=== PATIENT | female | born 1960 | race Caucasian/White ===

== ENCOUNTER 2025-04-08 13:11 | Outpatient (CLI) | payer MEDICARE, BC, SELFPAY ==
--- OUTSIDE RECORDS SUMMARY | 2025-02-22 08:00 | XMS_ITS | Encounter Summary ---
Author Organization [facility] Address [address] [place] [address] Care Team Providers Care Sodium Chlorite Operator Name Role Phone Alda Sandra MD Primary Care Provider [phone] Reason for Visit * Reason Comments Labs Hair loss - check th yroid and lipid Encounter Details Date Type Department Care Team (Latest Contact Info) Description 02/22/2025 8:00 AM EDT Office Visit [facility] Medicine [address] [place] [address] Alda Sandra MD [address] [place] [address] Acquired hypothyroidism (Primary Dx); Encounter for osteoporosis screening in asymptomatic postmenopausal patient; Primary hypertension; Gastro-esophageal reflux disease without esophagitis Social History Tobacco Use Types Packs/Day Years Used Date Smoking Tobacco: Former Cigarettes 1 25 0 10/31/1976 - 1999 Passive Smoke Exposure: Never Smokeless Tobacco: Never Tobacco Cessation:Counseling Given: No Alcohol Use Standard Drinks/Week Comments Yes 0 (1 standard drink = 0.6 oz pure alcohol) Alcoholic Drinks/day: Minimum alcohol consumption Humiliation, Afraid, Rape, and Kick questionnair e Answer Date Recorded Within the last year, have y ou been afraid of your partner or ex-partner? No 02/22/2025 Within the last year, have y ou been humiliated or emotionally abused in other ways by your partner or ex-partner? No Within the last year, have y ou been kicked, hit, slapped, or otherwise physically hurt by your partner or ex-partner? No 02/22/2025 Within the last year, have y ou been raped or forced to have any kind of sexual activity by your partner or ex-partner? No 02/22/2025 Social Connection and Isolation Panel Answer Date Recorded In a typical week, how many times do you talk on the phone with family, friends, or neighbors? More than three times a week 08/01/2024 How often do you get togethe r with friends or relatives? More than three times a week 08/01/2024 How often do you attend chur or latter day services? More than 4 times per year 08/01/2024 Do you belong to any clubs o r organizations such as zoroastrianism groups, unions, fraternal or athletic groups, or school groups? Yes 08/01/2024 How often do you attend meet ings of the clubs or organizations you belong to? More than 4 times per year 08/01/2024 Are you , , di vorced, , never , or living with a partner? 08/01/2024 AUDIT-C Answer Date Recorded Q1: How often do you have a drink containing alcohol? Never 08/01/2024 Q2: How many drinks containi ng alcohol do you have on a typical day when you are drinking? Patient does not drink Q3: How often do you have si x or more drinks on one occasion? Never 08/01/2024 PHQ-2 Answer Date Recorded Patient Health Questionnaire-2 Score 0 02/22/2025 [facility] - Occupational Stress Questionnaire Answer Date Recorded Do you feel stress - tense, restless, nervous, or anxious, or unable to sleep at night because your mind is troubled all the time - these days? To some extent 08/01/2024 Exercise Vital Sign Answer Date Recorde d Days of Exercise per Week Not on file 2023 On average, how many minutes do you engage in exercise at this level? 0 min 08/01/2024 Hunger Vital Sign Answer Date Recorded Within the past 12 months, y ou worried that your food would run out before you got the money to buy more. Never true 02/23/20 Within the past 12 months, t he food you bought just didn't last and you didn't have money to get more. Never true 02/22/2025 PRAPARE - Transportation Answer Date Re corded In the past 12 months, has l ack of transportation kept you from medical appointments or from getting medications? No 01/30 In the past 12 months, has l ack of transportation kept you from meetings, work, or from getting things needed for daily living? No 02/22/2025 Housing Stability Vital Sign Answer Angel e Recorded In the last 12 months, was t here a time when you were not able to pay the mortgage or rent on time? No 08/01/2024 In the last 12 months, how many places have you lived? 1 08/01/2024 In the last 12 months, was t here a time when you did not have a steady place to sleep or slept in a long-term (including now)? No 08/01/2024 PHQ-9 Answer Date Recorded Patient Health Questionnaire-9 Score 0 02/22/2025 Housing Stability Vital Sign Answer Angel e Recorded In the last 12 months, was t here a time when you were not able to pay the mortgage or rent on time? No 02/22/2025 In the past 12 months, how m any times have you moved where you were living? 0 02/22/2025 At any time in the past 12 m [facility], were you homeless or living in a long-term (including now)? No 02/22/2025 CAGE ASSESSMENT Answer Date Recorded Due to the following: Medical status 10/21/2024 Maximum number of drinks you had on a given occasion in the last month? 0 drinks 10/21/2024 How many alcoholic Beverages do you typically drink in a week? 0 - 7 per week 10/21/2024 Have you ever felt you should CUT down on your d rinking? 0 10/21/2024 Have you been ANNOYED by peo ple criticizing your drinking? 0 10/21/2024 Have you felt GUILTY about your drinking? 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 0 10/21/2024 CAGE Questionnaire Score 0 024 Utilities Answer Date Recorded In the past 12 months has th e electric, gas, oil, or water company threatened to shut off services in your home? No 02/22/2025 PHQ-2A Answer Date Recorded Patient Health Questionnaire-2 Score 0 07/08/2023 Comments No Sex and Gender Information Value Date Recorded Sex Assigned at Female 12/18/2021 7:05 PM EST Legal Sex Female 7:53 PM EDT Gender Identity Female 12/18/2021 7:05 PM EST Sexual Orientation Straight 12/18/2021 7: 05 PM EST Occupation Industry Job Start Date Job End Date disabled - [employer] Not on file Not on file Not on sonido e documented as of this encounter Last Filed Vital Signs Vital Sign Reading Time Taken Comments Blood Pressure 126/84 02/22/2025 7:59 AM EDT Pulse 79 02/22/2025 7:59 AM EDT Temperature 37 C (98.6 F) 02/22/2025 7:59 AM EDT Respiratory Rate 14 02/22/2025 7:59 AM EDT Oxygen Saturation 97% 02/22/2025 7:59 AM EDT Inhaled Oxygen Concentration - - Weight 100 kg (220 lb 14.4 oz) 02/22/2025 7:59 A M EDT Height 165.1 cm (5' 5 ) 02/22/2025 7:59 AM EDT Body Mass Index 36.76 02/22/2025 7:59 AM EDT documented in this encounter Functional Status * Over the past 2 weeks, how often have you been bothered by any of the following problems? Question Answer Date of Assessment Author Little interest or pleasure in doing things Not at all 02/22/2025 8:00 AM EDT Jennifer Floyd Feeling down, depressed, or hopeless Not at all 01/30 8:00 AM EDT Jennifer Floyd Patient Health Questionnaire-2 Score 0 01/30 8:00 AM EDT Jennifer Floyd * Question Answer Date of Assessment Author Trouble falling or staying a sleep, or sleeping too much Not at all 02/22/2025 8:00 AM EDJennifer Chatterjee Feeling tired or having little energy Not at all 8:00 AM EDJennifer Chatterjee Poor appetite or overeating Not at all 02/22/2025 8: 00 AM EDJennifer Chatterjee Feeling bad about yourself - or that you are a failure or have let yourself or your family down Not at all 02/22/2025 8:00 AM EDArin Chatterjee Trouble concentrating on thi ngs, such as reading the newspaper or watching television Not at all 02/22/2025 8:00 AM Jennifer Burton Moving or speaking so slowly that other people could have noticed? Or the opposite - being so fidgety or restless that you have been moving around a lot more than usual. Not at all 02/22/2025 8:00 AM EDDane Chatterjee Thoughts that you would be b poly off or hurting yourself in some way Not at all 02/22/2025 8:00 AM EDJennifer Chatterjee Patient Health Questionnaire-9 Score 0 01/30 8:00 AM EDJennifer Chatterjee * Calculated C-SSRS Risk Score (Lifetime/Recent) Answer Date of Assessment Author No Risk Indicated 02/22/2025 8:00 AM EDDane Chatterjee * If you checked off any problems on this questionnaire so far, Question Answer Date of Assessment Author How difficult have these problems made it for you to do your work, take care of things at home, or get along with other people? Not difficult at all 02/22/2025 8:00 AM EDJennifer Chatterjee * Question Answer Date of Assessment Author 1. Wish to be (Past 1 Month) No 025 8:00 AM Jennifer Burton 2. Non-Specific Active Suici jesus Thoughts (Past 1 Month) No 02/22/2025 8:00 AM Jennifer Burton 6. Suicidal Behavior (Lifetime) No 8:00 AM EDJennifer Chatterjee documented as of this encounter Miscellaneous Notes * Progress Notes - Alda Sandra MD - 02/22/2025 8:00 AM EDT Office Progress Note Subjective Gem Montgomery is a 64 y.o. female who presents for Labs (Hair loss - check thyroid and lipid ). History of Present Illness The patient presents for a pre-travel checkup, hair loss, hyperlipidemia, hypertension, osteoporosis She is planning a trip to [place] on 03/02/2025 and has been informed by her pharmacy that she requires a hepatitis booster. Hepatitis vaccines were received in 2014 due to a previous trip to [facility]. Hair loss is reported, which she attributes to her thyroid condition, and she requests a thyroid test. The last thyroid test was conducted in 07/2024 and was normal. She has been taking red yeast rice for high cholesterol d/t muscle-related issues associated with her prescription statin medications and is interested in assessing its effectiveness. Daily intake of vitamin D3 at a dose of 5000 IU is reported, as recommended by her airplane and engine inspector or neurologist. A bone density test was conducted 3 to 4 years ago, but the results are not recalled. Calcium supplements are also taken. She was previously diagnosed with mild osteoporosis. A known hemangioma on her liver is reported. There is a family history of nonalcoholic cirrhosis ofthe liver. Antihypertensive medication is taken in the morning, and dizziness or lightheadedness is experienced if a dose is missed. The medication was not taken today to assess blood pressure without it. She has received 16 injections in her back for nerve blockage but did not find them beneficial. FAMILY HISTORY She has a family history of nonalcoholic cirrhosis of the liver. The following sections have been reviewed and updated during this encounter: Tobacco Allergies Meds Problems Med Hx Surg Hx Fam Hx Objective Blood pressure 126/84, pulse 79, temperature 37 ??C (98.6 ??F), resp. rate 14, height 1.651 m (5' 5 ), weight 100 kg (220 lb 14.4 oz), SpO2 97%. Body mass index is 36.76 kg/m??. Physical Exam Vitals reviewed. Constitutional: Appearance: Normal appearance. Neurological: Mental Status: She is alert. Assessment/Plan Diagnoses and all orders for this visit: Acquired hypothyroidism - Thyroid Stimulating Hormone, Plasma Encounter for osteoporosis screening in asymptomatic postmenopausal patient - Dexa Bone Density; Future Primary hypertension - Comprehensive Metabolic Panel, Plasma - Lipid Profile, Plasma - Thyroid Stimulating Hormone, Plasma Gastro-esophageal reflux disease without esophagitis Peripheral polyneuropathy Assessment & Plan 1. Pre-travel checkup: - Received all three doses of the hepatitis B vaccine, providing lifelong immunity. - Only received one dose of the hepatitis A vaccine, which is typically administered in a series oftwo doses. - A1c levels were within the normal range during the last assessment in 07/2024. - Blood counts were good in 09/2024. - Advised to receive the hepatitis A vaccine at the pharmacy prior to travel. - A complete metabolic panel (CMP) will be ordered to monitor glucose levels and overall health status. - Results will be communicated via [employer]. 2. Hair loss: - Thyroid function was last assessed in 07/2024 and was within normal limits. - An abnormality was noted in 07/2023. - A thyroid function test will be ordered to monitor the current status. -adjust medication as needed pending TSH results 3. Hyperlipidemia: - Cholesterol levels were elevated during the last assessment in 09/2024. - Currently taking red yeast rice for about a month and a half. - A lipid panel will be ordered to monitor cholesterol levels. 4. Osteoporosis: - Currently on a regimen of vitamin D3 at a dosage of 5000 IU daily. - Vitamin D levels were last assessed in 10/2022 and were within the normal range. - A bone density test will be scheduled for comparison with previous results. - A vitamin D level test will be ordered to ensure the dosage is appropriate. - If bone density is low, continue with 5000 IU daily. - If bone density is normal, reduce dosage to 2000 IU daily. 5. Liver hemangioma: - Known hemangioma on the liver, considered benign and does not require treatment at this time. 6. Hypertension: - Currently on losartan and a diuretic. - Reported feeling dizzy and lightheaded when not taking blood pressure medication. - Kidney function will be monitored as losartan can affect the kidneys. Verbal consent was obtained to use ambient listening technology to assist in the documentation of the encounter: yes documented in this encounter Plan of Treatment Upcoming Encounters Date Type Department Care Team (Late st Contact Info) Description 04/15/2025 2:15 PM EDT Office Visit [facility] Medicine Specialties [address] [place] [address] Shanice Freedman, SOLUTIONS ENGINEER [address] [place] [address] 05/29/2025 9:30 AM EDT Procedure Visit [facility] Interventional Pain Medicine [address] [place] [address] German Espinosa MD [address] [place] [address] 07/18/2025 1:20 PM EDT Office Visit [facility] [place] [address] [place] [address] Brandi Bermeo MD [address] [place] [address] Scheduled Orders Name Type Priority Associated Diagnoses Orde r Schedule Dexa Bone Density Imaging Routine Encounter for osteoporosis screening in asymptomatic postmenopausal patient Expected: 02/22/2025, Expires: 08/24/2026 documented as of this encounter Procedures Procedure Name Priority Date/Time Associated Diagnosis Comments TSH Routine 02/22/2025 8:42 AM EDT Primary hypertension Acquired hypothyroidism LIPID PROFILE, PLASMA Routine 02/22/2025 8:42 AM EDT Primary hypertension COMPREHENSIVE METABOLIC PANEL, PLASMA Routine 02/22/2025 8:42 AM EDT Primary hypertension documented in this encounter Results * Thyroid Stimulating Hormone, Plasma (02/22/2025 8:42 AM EDT) Thyroid Stimulating Hormone, Plasma 2.55 0.40 - 4.20 uIU/mL 02/22/2025 1:19 PM EDT [facility] Blood Venous blood specimen / Unknown Venipuncture / Unknown 02/22/2025 8:42 AM EDT 02/22/2025 8:42 AM EDT us Alda Sandra MD LAB BLOOD ORDERABLES Final Re sult [facility] [address] [place] [address] * (ABNORMAL) Lipid Profile, Plasma (02/22/2025 8:42 AM EDT) Cholesterol, Plasma 246(H) <200 mg/dL 02/22/2025 1:19 PM EDT [facility] Comment: Cholesterol Reference Range (age >17 years): Desirable <200 mg/dL Borderline 200 to 239 mg/dL Undesirable >239 mg/dL HDL 44(L) >=50 mg/dL 02/22/2025 1:19 PM EDT [facility] Comment: HDL Cholesterol Reference Ranges (age >17 years): Female, acceptable > or = 50 mg/dL Male, acceptable > or = 40 mg/dL Triglycerides, Plasma 173(H) <150 mg/dL 02/22/2025 1:19 PM EDT [facility] Comment: Triglyceride Reference Range (age >17 years): Desirable: <150 mg/dL Borderline high: 150 to 199 mg/dL High: 200 to 499 mg/dL Very high: >499 mg/dL Increased risk of pancreatitis: >1000 mg/dL Cholesterol/HDL Ratio 6 02/22/2025 1:19 PM EDT [facility] LDL, Calculated 170(H) <100 mg/dL 1:19 PM EDT [facility] Comment: LDL Cholesterol Reference Range (age >17 years): Optimal: <100 mg/dL Near or above optimal: 100 - 129 mg/dL Borderline high: 130 - 159 mg/dL High: 160 - 189 mg/dL Very high: >189 mg/dL LDL Cholesterol Reference Range (age <18 years): Desirable: <110 mg/dL Borderline: 110 - 129 mg/dL Undesirable: >130 mg/dL LDL Cholesterol is calculated using the Hubbard/NIH equation. Fasting greater than or equal to 12 hours? Yes 02/22/2025 1:19 PM EDT [facility] Blood Venous blood specimen / Unknown Venipuncture / Unknown 02/22/2025 8:42 AM EDT 02/22/2025 8:42 AM EDT us Alda Sandra MD LAB BLOOD ORDERABLES Final Re sult [facility] [address] [place] [address] * (ABNORMAL) Comprehensive Metabolic Panel, Plasma (02/22/2025 8:42 AM EDT) Glucose, Plasma 89 74 - 99 mg/dL 02/22/2025 1:19 PM EDT [facility] BUN, Plasma 26(H) 8 - 23 mg/dL 02/22/2025 1:19 PM EDT [facility] Creatinine, Plasma 0.84 0.60 - 1.10 mg/dL 02/22/2025 1:19 PM EDT [facility] BUN/Creatinine Ratio 31 02/22/2025 1:19 PM EDT [facility] Sodium, Plasma 141 136 - 145 mmol/L 02/22/2025 1:19 PM EDT [facility] Potassium, Plasma 4.3 3.6 - 4.9 mmol/L 02/22/2025 1:19 PM EDT [facility] Chloride, Plasma 103 97 - 107 mmol/L 02/22/2025 1:19 PM EDT [facility] CO2, Plasma 28 22 - 29 mmol/L 02/22/2025 1:19 PM EDT [facility] Anion Gap 10 6 - 16 mmol/L 02/22/2025 1:19 PM EDT [facility] Total Calcium, Plasma 9.7 8.9 - 10.2 mg/dL 02/22/2025 1:19 PM EDT [facility] Total Protein 6.7 6.3 - 7.9 g/dL 02/22/2025 1:19 PM EDT [facility] Albumin, Plasma 4.3 3.5 - 5.2 g/dL 02/22/2025 1:19 PM EDT [facility] AST, Plasma 19 10 - 35 U/L 02/22/2025 1:19 PM EDT [facility] ALT, Plasma 20 10 - 35 U/L 02/22/2025 1:19 PM EDT [facility] Alkaline Phosphatase, Plasma 86 46 - 142 U/L 02/22/2025 1:19 PM EDT [facility] Total Bilirubin, Plasma 0.5 0.2 - 1.1 mg/dL 02/22/2025 1:19 PM EDT [facility] eGFRcr 78.2 mL/min/1.7 3m*2 02/22/2025 1:19 PM EDT [facility] Comment:Reported eGFRcr in m L/min/1.73m2 is based the CKD-EPI 2020 equation that does not use a race coefficient. Blood Venous blood specimen / Unknown Venipuncture / Unknown 02/22/2025 8:42 AM EDT 02/22/2025 8:42 AM EDT us Alda Sandra MD LAB BLOOD ORDERABLES Final Re sult [facility] [address] [place] [address] documented in this encounter Visit Diagnoses Diagnosis Acquired hypothyroidism- Primary Unspecified hypothyroidism Encounter for osteoporosis screening in asymptomatic postmenopausal patient Primary hypertension Unspecified essential hypertension Gastro-esophageal reflux disease without esophagitis documented in this encounter Additional Health Concerns Infection Onset Date Last Indicated Resolved Time COVID-19 Rule-Out 11/01/2023 11/01/2023 Assessment Noted Time PHQ-9 Depression Total Score: 0 02/23/20 8:00 AM EDT A fall risk assessment has been complete d for the patient 02/06/2025 1:18 PM EDT A Body Mass Index follow-up plan has been documented for the patient 02/22/2025 9:05 AM EDT documented as of this encounter Care Teams Sodium Chlorite Operator Relationship Specialty Start Date End Date Alda Sandra MD [address] [place] [id number] PCP - General 03/13/21 documented as of this encounter
--- OUTSIDE RECORDS SUMMARY | 2025-03-18 08:30 | XMS_ITS | Encounter Summary ---
Author Organization [facility] Address [address] [place] [address] Care Team Providers Care Building Rigger Name Role Phone Alda Sandra MD Primary Care Provider [phone] Reason for Referral * Other Medical (Urgent) - Authorized Specialty Diagnoses / Procedures Referred By Contac t Referred To Contact Pain Medicine Diagnoses Spondylosis of lumbar region without myelopathy or radiculopathy Procedures Facet MBB - Lumbar German Espinosa MD [address] [address] Phone: tel: fax: Referral ID Status Reason Start Date Expiration Date V isits Requested Visits Authorized [id number] Authorized 03/18/2025 09/17/2026 1 1 Reason for Visit * Reason Comments Follow-up Encounter Details Date Type Department Care Team (Late st Contact Info) Description 03/18/2025 8:30 AM EDT Office Visit [facility] Interventional Pain Medicine [address] [place] [address] German Espinosa MD [address] [facility] [address] [place] [phone] Spondylosis of lumbar region without myelopathy or radiculopathy (Primary Dx) Social History Tobacco Use Types Packs/Day Years Used Date Smoking Tobacco: Former Cigarettes 1 25 0 10/31/1976 - 1999 Passive Smoke Exposure: Never Smokeless Tobacco: Never Alcohol Use Standard Drinks/Week Comments Yes 0 [...] week 08/01/2024 How often do you attend [facility] or orthodox services? More than 4 times per year 08/01/2024 Do you belong to any clubs o r organizations such as congregational groups, unions, fraternal or athletic groups, or [...] Date Recorded Patient Health Questionnaire-2 Score 0 03/18/2025 [facility] - Occupational Stress Questionnaire Answer Date Recorded [...] money to buy more. Never true 02/23/20 25 Within the past 12 months, t he [...] place to sleep or slept in a jail (including now)? No 08/01/2024 PHQ-9 Answer Date [...] any time in the past 12 m [facility], were you homeless or living in a jail (including now)? 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 0 10/21/2024 CAGE Questionnaire Score 0 024 Utilities Answer Date Recorded In the past 12 months has e electric, gas, oil, or water company [...] Start Date Job End Date disabled - [employer] Not on file Not on file Not on sonido e documented as of this encounter Last Filed Vital Signs Vital Sign Reading Time Taken Comments Blood Pressure 128/84 03/18/2025 8:42 AM EDT Pulse 77 03/18/2025 8:42 AM EDT Temperature 36.7 C (98 F) 03/18/2025 8:42 AM EDT Respiratory Rate 18 03/18/2025 8:42 AM EDT Oxygen Saturation - - Inhaled Oxygen Concentration - - Weight 99.8 kg (220 lb) 03/18/2025 8:42 AM EDT Height 165.1 cm (5' 5 ) 03/18/2025 8:42 AM EDT Body Mass Index 36.61 03/18/2025 8:42 AM EDT documented in this encounter Functional Status * Over the past 2 weeks, how often have you been bothered by any of the following problems? Question Answer Date of Assessment Author Little interest or pleasure in doing things Not at all 03/18/2025 8:42 AM Med [place] Feeling down, depressed, or hopeless Not at all 03/18/2025 8:42 AM Med [place] Patient Health Questionnaire -2 Score 0 03/18/2025 8:42 AM Med [place] * Question Answer Date of Assessment Author Thoughts that you would be b poly off or hurting yourself in some way Not at all 03/18/2025 8:42 AM Med [place] * If you checked off any problems on this questionnaire so far, Question Answer Date of Assessment Author How difficult have these problems made it for you to do your work, take care of things at home, or get along with other people? Not difficult at all 03/18/2025 8:42 AM Med [place] documented as of this encounter Miscellaneous Notes * Progress Notes - Jame Jones MD - 03/18/2025 8:30 AM EDT Images from the original note were not included. Interventional Pain Medicine Follow Up Note Subjective: Interval History: 03/18/2025 Gem presents today for follow up and re-evaluation of chronic mid low back pain status post 02/06/25 bilateral levator scapulae, upper trapezius, middle trapezius, lower trapezius, rhomboid complex, thoracic paraspinal, and lumbar paraspinal Trigger Point Injections on 02/06/2025. She endorses ongoing 50% relief of her back pain. Today she reports 4/10 mid and lower back pain, deep/burning in character, exacerbated by physical activity/standing/ambulating and lifting, and extension of the lumbar spine, partially alleviated by sitting down to rest. She notes that she feels as if her back is numb(describes as occurring over the bilateral paraspinal region from the bra-line to the bilateral iliac crests). She notes that this has been a months long issue (denies inciting event, however notes that she fell against a metal hand cart in 2023 while unloading boxes from her attic and hitthe middle of her back against it, although she may have been numb before that time). She denies LEweakness/paresthesias, bowel/bladder incontinence, saddle paresthesias, gait instability. She notesthat she fell recently while on a trip to [place] while carrying her suitcase down a marble staircase in the dark. MIMA: 2250 History of Present Illness: Gem Montgomery is a 64 y.o. female with PMHx of L4/5 and L5/S1 fusion who presents due to worsening mid and low back pain following a fall in September 2024. She notes numbness in her right and left lateral thigh numbness. She notes falls as recent as a week ago. Patient referred by No ref. provider found for evaluation of injections for low back pain Presents with: Site: low back and thoracic back pain Onset: September 2024 Severity: 05/09 Descriptors: burning, hot poker Aggravating Factors: walking, standing, lifting, back extension Relieving Factors: laying flat Associated Symptoms: notes pain and numbness in bilateral lateral thighs; no radiation past the knees Global Pain Score: 68/100 PHQ-9: 13; all pain related; no active or passive SI Current Disabilities: limitations in ADLs/IADLs Functional Goals of Treatment: improvement in function Current Medication: Current Pain Medications diclofenac (Voltaren) 75 MG EC tablet TAKE 1 TABLET BY MOUTH TWICE DAILY DO NOT CRUSH ,CHEW OR SPLIT Previous Medication: Tylenol Ibuprofen Cyclobenzaprine Tizanidine CBD gummies Previous Conservative Treatment: conservative care > 6 weeks within the last 6 months heat ice rest physical therapy completed > 6 weeks in the last 6 months at [facility] in [place], [place] August 2024 to September 2024 Previous Interventions/Consults: 02/06/2025: bilateral levator scapulae, upper trapezius, middle trapezius, lower trapezius, rhomboid complex, thoracic paraspinal, and lumbar paraspinal Trigger Point Injections Other Medical History Work Status/Pain related to work injury: Yes; work place injury in 2000 reports that she quit smoking about 25 years ago. Her smoking use included cigarettes. She started smoking about 48 years ago. She has a 25 pack-year smoking history. She has never been exposed to tobacco smoke. She has never used smokeless tobacco. Anticoagulation: No Review of Systems: CONSTITUTIONAL: denies fevers, chills HEENT: denies swallowing difficulties, sore throat CARDIOVASCULAR: denies chest pain, palpitations, syncope RESPIRATORY: denies shortness of breath, cough, wheezing GI: denies change in bowel habits, nausea, vomiting : denies change in bladder function, frequency, dysuria SKIN: denies rash, skin changes MSK: Per HPI NEURO: Per HPI PSYCH: Per HPI General Physical Exam: Constitutional Appears well-developed and well-nourished Head Normocephalic and atraumatic Neck Neck supple Cardiovascular Minimal to no peripheral edema Pulmonary/Chest Effort normal, no shortness of breath noted Skin Skin is warm and dry on exposed skin Neurologic & Musculoskeletal Exam Lower Extremity Region Exam Left (+/-) Right (+/-) Comments Lumbar Musculature Tender w/ palpation + + Lumbar Facet Pain w/ extension + + Lower Extremity Slump - - Lower Extremity SLR - - Sensation Left Right Comments L2: Proximal Anterior Thigh Normal Normal L3: Mid Anterior Thigh Normal Normal L4: Medial leg/foot, great toe (Saphenous n.) Normal Normal L5: Dorsum of mid foot Normal Normal S1: Lateral leg/foot, little toe, back of leg (Sural n.) Normal Normal Motor Strength Left Right Comments L2: Hip flexion (iliopsoas) 5/5 5/5 L3: Knee extension (quad) 5/5 5/5 L4: Ankle DF (TA) 5/5 5/5 L5: Great Toe DF (EHL) 5/5 5/5 S1: Ankle PF, Foot Eversion (Peroneal longus/brevis) 5/5 5/5 S2: Great toe flexion (FHL), Knee Flexion 5/5 5/5 Reflexes Left Right L4: Patellar 2/4 2/4 S1: Achilles 2/4 2/4 Clonus None None Region Exam Left (+/-) Right (+/-) Comments Sacroiliac Joint Deni's Finger (PSIS) - - Tenderness to palpation - - TRA - - Gaenslen's - - Compression - - Distraction - - Region Exam Left (+/-) Right (+/-) Comments Hip Inspection - - Hip Tender to palpation - - Hip FADIR - - Hip Logroll - - Hip Grind - - Greater trochanter bursa negative Imaging/Studies: Images of the following studies have been personally reviewed and my independent interpretation reveals as written: MRI L spine 01/03/25: L4/5 fusion with laminectomy. Multilevel degenerate changes. Interbody spacers at L4/5 and L5/S1, L1/2 with disc bulge and foraminal or central stenosis. L2.3 with facet arthopathy, posterior disc bulge. No stenosis. L3/4 with diffuse disc bulge. Facet arthrosis. No central stenosis and mild stenosis of foramina. L4/5 with mild to moderate foraminal stenosis. L5/S1 with mild to moderate foraminal stenosis Labs: Lab Results Component Value Date PLT 294 10/21/2024 Lab Results Component Value Date INR 03/11/2016 0.9 (NOTE) OPTIMAL INR RANGES FOR PATIENT ON ORAL ANTICOAGULANT THERAPY Prevention of venous thromboembolism INR 2.0 to 3.0 In patients with heart disease: Atrial fibrillation INR 2.0 to 3.0 Valvular heart disease INR 2.0 to 3.0 Tissue heart valves INR 2.0 to 3.0 Mechanical prosthetic valves INR 2.5 to 3.5 Prevention of recurrent IN INR 2.5 to 3.5 Lab Results Component Value Date HGBA1C 5.0 08/02/2024 Assessment & Plan: Gem Montgomery is a 64 y.o. female #Myofascial Pain Syndrome, Chronic Worsening -trigger points noted in the bilateral lumbar and thoracic paraspinal muscles -recommended to continue with conservative management including PT, home exercise program, heat/ice, topical NSAIDs, etc. -can consider referral to OMT for benefit -s/p TPIs 02/06/2025, reports ongoing 50% relief of myofascial back pain #Axial Low Back Pain, Chronic Worsening #Lumbar Spondylosis #Facetogenic pain -Recommend trial of Bilateral L2/L3 and L3/L4 mbb first diagnostic block performed with fluoroscopy - valium sent for anxiolysis -If successful, will confirm with second diagnostic block then proceed to RFA performed with fluoroscopy #Failed Back Surgical Syndrome, Chronic Worsening #Chronic Pain -Patient is s/p L4/5 and L5/S1 fusion -Symptoms in the axial low back and bilateral lower extremity(s) -Discussed risks and benefits of SCS. Patient will think about procedure but would like to hold offat this time Cosigned by German Espinosa MD at 03/18/2025 9:25 AM EDT Associated attestation - German Espinosa MD - 03/18/2025 9:25 AM EDT I saw and evaluated the patient with the resident/fellow. I discussed the case with the resident/fellow and agree with the findings and plan as documented. documented in this encounter Plan of Treatment Upcoming Encounters Date Type Department Care Team (Late st Contact Info) Description 04/15/2025 2:15 PM EDT Office Visit [facility] Medicine Specialties [address] [place] [address] Shanice Freedman APRN [address] [place] [address] 05/29/2025 9:30 AM EDT Procedure Visit [facility] Interventional Pain Medicine [address] [place] [address] German Espinosa MD [address] [place] [address] 07/18/2025 1:20 PM EDT Office Visit [facility] [address], [address] [place] [address] Brandi Bermeo MD [address] [place] [address] Scheduled Orders Name Type Priority Associated Diagnoses Orde r Schedule Facet MBB - Lumbar Procedures Routine Spondylosis of lumbar region without myelopathy or radiculopathy 1 Occurrences starting 03/18/2025 until 03/18/2026 documented as of this encounter Visit Diagnoses Diagnosis Spondylosis of lumbar region without myelopathy or radiculopathy- Primary documented in this encounter Additional Health Concerns Infection Onset Date Last Indicated Resolved Time COVID-19 Rule-Out 11/01/2023 11/01/2023 Assessment Noted Time PHQ-9 Depression Total Score: 0 02/23/20 8:00 AM EDT A fall risk assessment has been complete d for the patient 03/18/2025 8:42 AM EDT A Body Mass Index follow-up plan has been documented for the patient 03/18/2025 9:26 AM EDT documented as of this encounter Care Teams Building Rigger Relationship Specialty Start Date End Date Alda Sandra MD [address] [place] [address] PCP - General 03/13/21 documented as of this encounter
--- OUTSIDE RECORDS SUMMARY | 2025-04-05 09:00 | XMS_ITS | Encounter Summary ---
Author Organization [facility] Address [address] [place] [address] Care Team Providers Care Teacher Lip Reading Name Role Phone Alda Sandra MD Primary Care Provider [phone] Reason for Visit * Reason Comments Rash Rash with blisters s tarted Tuesday.... On arm, neck, under breasts & groin. Very itchy at night. Encounter Details Date Type Department Care Team (Late st Contact Info) Description 04/05/2025 9:00 AM EDT Office Visit [facility] [address] [place] [address] Julia Quiroz, MULTI NEEDLE MACHINE OPERATOR, DNP [address] [place] [address] Poison rachel dermatitis (Primary Dx) Social History Tobacco Use Types Packs/Day Years Used Date Smoking Tobacco: Former Cigarettes 1 25 0 10/31/1976 - 1999 Passive Smoke Exposure: Never Smokeless Tobacco: Never Alcohol Use Standard Drinks/Week Comments Not Currently 0 (1 standard drink = 0.6 oz [...] How often do you attend chur or christianity services? More than 4 times per year 08/01/2024 Do you belong to any clubs o r organizations such as yarsani groups, unions, fraternal or athletic groups, or school groups? Yes 08/01/2024 How often do you attend meet ings of the clubs or organizations you belong to? More than 4 times per year 08/01/2024 Are you , , di vorced, , never , or living with a partner? 08/01/2024 PHQ-2 Answer Date Recorded Patient Health Questionnaire-2 Score 0 03/18/2025 [facility] - Occupational Stress Questionnaire Answer Date Recorded [...] place to sleep or slept in a penitentiary (including now)? No 08/01/2024 PHQ-9 Answer Date [...] any time in the past 12 m [facility], were you homeless or living in a penitentiary (including now)? No 02/22/2025 AUDIT-C Answer Date Recorded Q1: How often do you have a drink containing alcohol? Never 04/05/2025 Q2: How many drinks containi ng alcohol do you have on a typical day when you are drinking? Patient does not drink Q3: How often do you have si x or more drinks on one occasion? Never 04/05/2025 CAGE ASSESSMENT Answer Date Recorded Due to [...] drink first t jeni in the morning (EYE-FINE WIRE DRAWER) to steady your nerves or to get [...] Start Date Job End Date disabled - [employer] Not on file Not on file Not on sonido e documented as of this encounter Last Filed Vital Signs Vital Sign Reading Time Taken Comments Blood Pressure 132/84 04/05/2025 9:21 AM EDT Pulse 76 04/05/2025 9:21 AM EDT Temperature 36.8 C (98.2 F) 04/05/2025 9:21 AM EDT Respiratory Rate 18 04/05/2025 9:21 AM EDT Oxygen Saturation 97% 04/05/2025 9:21 AM EDT Inhaled Oxygen Concentration - - Weight 100 kg (220 lb 7.4 oz) 04/05/2025 9:21 AM EDT Height 165.1 cm (5' 5 ) 04/05/2025 9:21 AM EDT Body Mass Index 36.69 04/05/2025 9:21 AM EDT documented in this encounter Functional Status * AUDIT-C Score Answer Date of Assessment Author 0 04/05/2025 9:23 AM EDT Yolie Quinn * Question Answer Date of Assessment Author Q1: How often do you have a drink containing alcohol? Never 04/05/2025 9:23 AM EDT July Quinn Q2: How many drinks containing alcohol do you have on a typical day when you are drinking? Patient does not drink 04/05/2025 9:23 AM EDT July Quinn Q3: How often do you have six or more drinks on one occasion? Never 04/05/2025 9:23 AM EDT July Quinn * Calculated C-SSRS Risk Score (Lifetime/Recent) Answer Date of Assessment Author No Risk Indicated 04/05/2025 9:25 AM EDT July Quinn * Question Answer Date of Assessment Author 1. Wish to be (Past 1 Month) No 025 9:25 AM EDT July Quinn 2. Non-Specific Active Suici jesus Thoughts (Past 1 Month) No 04/05/2025 9:25 AM EDT July Quinn 6. Suicidal Behavior (Lifetime) No 9:25 AM EDT July Quinn documented as of this encounter Miscellaneous Notes * Progress Notes - Julia Quiroz, MULTI NEEDLE MACHINE OPERATOR, DNP - 04/05/2025 9:00 AM EDT Subjective Gem Montgomery Rash Ms. Montgomery presents for rash on arm, neck, right breast and in groin. Patient says the rash is very itchy. Patient says she started getting Tuesday of last week. 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 Patient says that the rash is red and raised. Patient says it continues to spread. Past Medical History[1] Family History[2] Surgical History[3] Social History Socioeconomic History Marital status: Spouse name: Not on file Number of children: 2 Years of education: Not on file Highest education level: Not on file Occupational History Occupation: disabled - [employer] Tobacco Use Smoking status: Former Current packs/day: 0.00 Average packs/day: 1 pack/day for 25.0 years (25.0 ttl pk-yrs) Types: Cigarettes Start date: 10/31/1976 Quit date: 2000 Years since quittin.4 Passive exposure: Never Smokeless tobacco: Never Vaping Use Vaping status: Never Used Substance and Sexual Activity Alcohol use: Not Currently Comment: Alcoholic Drinks/day: Minimum alcohol consumption Drug use: Never Sexual activity: Defer Other Topics Concern Not on file Social History Narrative Disabled Marital Status: Number of children Social Drivers of Health Financial Resource Strain: Not on file Food Insecurity: No Food Insecurity (02/22/2025) Hunger Vital Sign Worried About Running Out of Food in the Last Year: Never true Ran Out of Food in the Last Year: Never true Transportation Needs: No Transportation Needs (02/22/2025) PRAPARE - Transportation Lack of Transportation (Medical): No Lack of Transportation (Non-Medical): No Physical Activity: Unknown (08/01/2024) Exercise Vital Sign Days of Exercise per Week: Not on file Minutes of Exercise per Session: 0 min Stress: Stress Concern Present (08/01/2024) [place] [facility] - Occupational Stress Questionnaire Feeling of Stress : To some extent Social Connections: Socially Integrated (08/01/2024) Social Connection and Isolation Panel Frequency of Communication with Friends and Family: More than three times a week Frequency of Social Gatherings with Friends and Family: More than three times a week Attends Evangelical Services: More than 4 times per year Active Member of Clubs or Organizations: Yes Attends Club or Organization Meetings: More than 4 times per year Marital Status: Intimate Partner Violence: Not At Risk (02/22/2025) Humiliation, Afraid, Rape, and Kick questionnaire Fear of Current or Ex-Partner: No Emotionally Abused: No Physically Abused: No Sexually Abused: No Housing Stability: Low Risk (02/22/2025) Housing Stability Vital Sign Unable to Pay for Housing in the Last Year: No Number of Times Moved in the Last Year: 0 Homeless in the Last Year: No Medications Ordered Prior to Encounter[4] Allergies[5] Health Maintenance Due Topic Date Due [id number] Vaccine (3 - Moderna risk series) 01/08/2021 UKY-RSV Vaccine: 60+ Years or (1 - Risk 60-74 years 1-dose series) Never done The following portions of the patient's chart were reviewed in this encounter and updated as appropriate: past medical history, surgical history, family history, tobacco history, allergies, and medications A 14-point review of systems was completed with pertinent positives and negatives outlined above. Objective Vitals: 04/05/25 0921 BP: 132/84 Pulse: 76 Resp: 18 Temp: 36.8 ??C (98.2 ??F) SpO2: 97% Physical Exam Constitutional: Appearance: Normal appearance. HENT: Head: Normocephalic and atraumatic. Cardiovascular: Rate and Rhythm: Normal rate and regular rhythm. Pulses: Normal pulses. Heart sounds: Normal heart sounds. Pulmonary: Effort: Pulmonary effort is normal. Breath sounds: Normal breath sounds. Skin: Comments: Vesicular maculopapular rash present on left arm, neck, right breast Neurological: Mental Status: She is alert. Psychiatric: Mood and Affect: Mood normal. Behavior: Behavior normal. Thought Content: Thought content normal. Judgment: Judgment normal. Assessment/Plan 1. Poison rachel dermatitis (Primary) Educated on risks/benefits of mediation. Patient encourage to not itch area. Patient will return ifsymptoms persist. Patient may take benadryl to help with itching. - hydrocortisone 2.5 % cream; Apply topically 2 times a day as needed for irritation or rash for upto 7 days. Dispense: 30 g; Refill: 2 - predniSONE (Deltasone) 20 MG tablet; Take 3 tabs (60mg) daily for 3 days, then take 2 tabs (40mg)daily for 3 days, then take 1 tab (20mg) daily for 3 days. Dispense: 18 tablet; Refill: 0 Julia Quiroz APRN, ROSALVA [1] Past Medical History: Diagnosis Date Abnormal mammogram Acid reflux 2000 Asthma 2015 Chronic bronchitis ([facility]) 2000, 2014, 2019 Coronary artery disease 2014 COVID-19 03/2022 Edema 08/01/2015 GERD (gastroesophageal reflux disease) Hypertension 1994 Morbid obesity ([facility]) 2017 Pneumonia, unspecified organism Subluxation complex (vertebral) of lumbar region Trochanteric bursitis, unspecified hip [2] Family History Problem Relation Name Age of Onset Diabetes Mother Iraida Lindsay Hypertension Mother Iraida Lindsay Kidney cancer Mother Iraida Lindsay Atrial fibrillation Mother Iraida Lindsay Cancer Mother Iraida Lindsay Alzheimer's disease Father Hypertension Brother Harvinder Lindsay Diabetes Brother Harvinder Lindsay Hypertension Maternal Grandmother Katja Kelsey Cancer Maternal Grandmother Katja Kelsey Breast cancer Other Tremor Other Hypertension Maternal Grandfather Shahbaz Kelsey Cancer Paternal Grandmother Sharri Lindsay Diabetes Brother Keegan Lindsay Hypertension Brother Keegan Lindsay Hypertension Brother Josh Lindsay [3] Past Surgical History: Procedure Laterality Date BLADDER SURGERY N/A HYSTERECTOMY N/A LUMBAR FUSION N/A [4] Current Outpatient Medications on File Prior to Visit Medication Sig Dispense Refill albuterol (ProAir HFA) 108 (90 Base) MCG/ACT inhaler Inhale 2 puffs 1 (one) time if needed for wheezing or shortness of breath. 1 each 11 alpha tocopherol (Vitamin E) 100 units capsule 1 (one) time each day. B Complex Vitamins (B Complex-B12) tablet 1 (one) time each day. cholecalciferol (Vitamin D3) 1.25 MG (23271 UT) capsule 1 (one) time each day. coenzyme Q-10 200 MG capsule 1 (one) time each day. diclofenac (Voltaren) 75 MG EC tablet TAKE 1 TABLET BY MOUTH TWICE DAILY DO NOT CRUSH ,CHEW OR SPLIT 180 tablet 2 fexofenadine (Diana) 180 MG tablet Take 1 tablet (180 mg) by mouth 1 (one) time each day. 90 tablet 3 fluticasone (Flonase) 50 MCG/ACT nasal spray USE 1 SPRAY(S) IN EACH NOSTRIL TWICE DAILY levothyroxine (Synthroid, Levoxyl) 88 MCG tablet Take 1 tablet by mouth daily. 90 tablet 3 losartan (Cozaar) 100 MG tablet Take 1 tablet by mouth once daily 90 tablet 1 magnesium, as gluconate, (Magonate) 500 (27 Mg) MG tablet Take 1 tablet (500 mg) by mouth 2 (two) times a day. metoprolol succinate XL (Toprol-XL) 100 MG 24 hr tablet Take 1 tablet (100 mg) by mouth 1 (one) time each day. Do not crush or chew. 90 tablet 3 mometasone-formoterol (Dulera) 200-5 MCG/ACT inhaler Inhale 2 puffs 2 (two) times a day. 13 g 11 omeprazole (PriLOSEC) [address] capsule Take 1 capsule by mouth once daily 90 capsule 3 ondansetron ODT (Zofran-ODT) 8 MG disintegrating tablet DISSOLVE 1 TABLET IN MOUTH TWICE DAILY NEEDED FOR NAUSEA Red Yeast Rice Extract (RED YEAST RICE PO) Take by mouth. Selenium 200 MCG capsule Take 200 mcg by mouth 1 (one) time each day. 30 capsule 0 Semaglutide-Weight Management (Wegovy) 2.4 MG/0.75ML solution auto-injector Inject 2.4 mg under theskin. triamterene-hydrochlorothiazide (Maxzide-25) 37.5-25 MG tablet Take 1 tablet by mouth once daily 90tablet 1 [DISCONTINUED] levothyroxine (Synthroid, Levoxyl) 88 MCG tablet Take 1 tablet (88 mcg) by mouth 1 (one) time each day. 90 tablet 3 No current facility-administered medications on file prior to visit. [5] Allergies Allergen Reactions Lipitor [Atorvastatin] Other - please document in the comment field Muscle cramps Oxycodone-Acetaminophen Rash documented in this encounter Plan of Treatment Upcoming Encounters Date Type Department Care Team (Late st Contact Info) Description 04/15/2025 2:15 PM EDT Office Visit [facility] Medicine Specialties [address] [place] [address] Shanice Freedman APRN [address] [place] [address] 05/29/2025 9:30 AM EDT Procedure Visit [facility] Interventional Pain Medicine [address] [place] [address] German Espinosa MD [address] [place] [address] 07/18/2025 1:20 PM EDT Office Visit [facility] [place] [facility] [address], [address] [place] [address] Brandi Bermeo MD [address] [place] [address] documented as of this encounter Visit Diagnoses Diagnosis Poison rachel dermatitis- Primary documented in this encounter Additional Health Concerns Infection Onset Date Last Indicated Resolved Time COVID-19 Rule-Out 11/01/2023 11/01/2023 Assessment Noted Time PHQ-9 Depression Total Score: 0 02/23/20 25 8:00 AM EDT A fall risk assessment has been complete d for the patient 03/18/2025 8:42 AM EDT A Body Mass Index follow-up plan has been documented for the patient 04/05/2025 9:48 AM EDT documented as of this encounter Care Teams Teacher Lip Reading Relationship Specialty Start Date End Date Alda Sandra MD [address] [place] [address] PCP - General 03/13/21 documented as of this encounter
--- NOTE | 2025-04-08 13:16 | XR_ITS ---
FINAL REPORT CLINICAL HISTORY: SCREENING COMPARISON: None FINDINGS: Using the left forearm, the bone mineral density of the 1/3 is 0.715 g/cm2, corresponding to T-score of 0.3, within normal limits. Using the left hip, the bone mineral density of the femoral neck is 1.009 g/cm2, corresponding to a T-score of 1.4, within normal limits. Using the right hip, the bone mineral density of the femoral neck is 1.020 g/cm2, corresponding to a T-score of 1.5, within normal limits. FRAX not reported because all T-scores at or above-1.0. NOTE: T-score: Standard deviation compared with peak bone mass of young adult mean. *Following the recommendations of the International Society of Bone densitometry, classification of hip BMD is based on the lower of two T-scores; total hip or femoral neck. IMPRESSION: Normal bone mineral density of the lumbar spine and hips. Reviewed, Interpreted and Dictated by Shade Felix MD Transcribed by Julee Noguera Authenticated and [facility]
--- OUTSIDE RECORDS SUMMARY | 2025-04-08 13:39 | XMS_ITS | Encounter Summary ---
Author Organization [facility] Address [address] [place] [address] Care Team Providers Care Sr Vice President Name Role Phone Alda Sandra MD Primary Care Provider [phone] Encounter Details Date Type Department Care Team (Late st Contact Info) Description 10/09/2024 Outside Procedure External Location [address] [place] [address] Julia Quiroz, MANUFACTURING PLANT TECHNICIAN, DNP [address] [place] [address] Social History Tobacco Use Types Packs/Day Years [...] afraid of your partner or ex-partner? No 08/01/2024 Within the last year, have y ou been humiliated or emotionally abused in other ways by your partner or ex-partner? No Within the last year, have y ou been kicked, hit, slapped, or otherwise physically hurt by your partner or ex-partner? No 08/01/2024 Within the last year, have y ou been raped or forced to have any kind of sexual activity by your partner or ex-partner? No 08/01/2024 Social Connection and Isolation Panel Answer Date Recorded In a typical week, how many times do you talk on the phone with family, friends, or neighbors? More than three times a week 08/01/2024 How often do you get togethe r with friends or relatives? More than three times a week 08/01/2024 How often do you attend chur or episcopalian services? More than 4 times per year 08/01/2024 Do you belong to any clubs o r organizations such as voodoo groups, unions, fraternal or athletic groups, or [...] Date Recorded Patient Health Questionnaire-2 Score 0 10/09/2024 [facility] - Occupational Stress [...] the money to buy more. Never true 08/01/20 24 Within the past 12 months, t he food you bought just didn't last and you didn't have money to get more. Never true 08/01/2024 PRAPARE - Transportation Answer Date Re corded In the past 12 months, has l ack of transportation kept you from medical appointments or from getting medications? No 12/2023 In the past 12 months, has l ack of transportation kept you from meetings, work, or from getting things needed for daily living? No 08/01/2024 Housing Stability Vital Sign Answer Angel e [...] place to sleep or slept in a detention (including now)? No 08/01/2024 PHQ-9 Answer Date Recorded Patient Health Questionnaire-9 Score 0 10/09/2024 Utilities Answer Date Recorded In the past 12 months has th e [employer], gas, oil, or water company threatened to shut off services in your home? No 08/01/2024 PHQ-2A Answer Date Recorded Patient Health Questionnaire-2 Score 0 07/08/2023 Comments No Sex and Gender Information Value Date Recorded Sex Assigned at Female 12/18/2021 7:05 PM EST Legal Sex Female 7:53 PM EDT Gender Identity Female 12/18/2021 7:05 PM EST Sexual Orientation Straight 12/18/2021 7: 05 PM EST Occupation Industry Job Start Date Job End Date disabled - [employer] Not on file Not on file Not on sonido e documented as of this encounter Functional Status * Over the past 2 weeks, how often have you been bothered by any of the following problems? Question Answer Date of Assessment Author Little interest or pleasure in doing things Not at all 10/09/2024 9:41 AM Nubia Marx Feeling down, depressed, or hopeless Not at all 10/09/2024 9:41 AM Nubia Marx Patient Health Questionnaire -2 Score 0 10/09/2024 9:41 AM Nubia Marx * Question Answer Date of Assessment Author Trouble falling or staying a sleep, or sleeping too much Not at all 10/09/2024 9:41 AM Nubia Marx Feeling tired or having jaxon le energy Not at all 10/09/2024 9:41 AM Nubia Marx Poor appetite or overeating Not at all 10/09/2024 9: 41 AM Nubia Marx Feeling bad about yourself - or that you are a failure or have let yourself or your family down Not at all 10/09/2024 9:41 AM Nubia Marx Trouble concentrating on thi ngs, such as reading the newspaper or watching television Not at all 10/09/2024 9:41 AM Nubia Marx Moving or speaking so slowly that other people could have noticed? Or the opposite - being so fidgety or restless that you have been moving around a lot more than usual. Not at all 10/09/2024 9:41 AM Nubia Marx Thoughts that you would be b poly off or hurting yourself in some way Not at all 10/09/2024 9:41 AM Nubia Marx Patient Health Questionnaire -9 Score 0 10/09/2024 9:41 AM Nubia Marx * If you checked off any problems on this questionnaire so far, Question Answer Date of Assessment Author How difficult have these problems made it for you to do your work, take care of things at home, or get along with other people? Not difficult at all 10/09/2024 9:41 AM Nubia Marx documented as of this encounter Plan of Treatment Upcoming Encounters Date Type Department Care Team (Late st Contact Info) Description 04/15/2025 2:15 PM EDT Office Visit [facility] Medicine Specialties [address] [place] [address] Shanice Freedman, MANUFACTURING PLANT TECHNICIAN [address] [place] [address] 05/29/2025 9:30 AM EDT Procedure Visit [facility] Interventional Pain Medicine [address] [facility] [place] [address] German Espinosa MD [address] [facility] [address] [place] [address] 07/18/2025 1:20 PM EDT Office Visit [facility] [address], [address] [place] [address] Brandi Bermeo MD [address] [place] [address] documented as of this encounter Procedures Procedure Name Priority Date/Time Associated Diagnosis Comments XR RIBS 2 VIEWS RIGHT 10/09/2024 10:19 AM EST documented in this encounter Results * XR Ribs 2 Views Right (10/09/2024 10:19 AM EST) Anatomical Region Laterality Modality Rib Right Digital Radiogra phy 10/09/2024 10:1 9 AM EST Narrative 10/10/2024 10:31 [place] [address] Name: DISHA MONTGOMERY Exam Date: 10/09/2024 : 1960 Age 64 years Gender: F Physician: Julia Quiroz Facility: [facility] Facility HSV: Outpatient Exam: RIBS UNILAT 2VWS RT EXAM DESCRIPTION: RIBS UNILAT 2VWS RT CLINICAL HISTORY: 64 years Female, rib pain COMPARISON: 12/18/2021 FINDINGS: The bones are intact. No evidence of acute fracture or displacement. The visualized right lung is clear. IMPRESSION: No radiographic evidence of acute disease. Electronically signed by:Meka Munoz MD10/10/2024 10:27 PM EST Dictated By: Meka Munoz Transcribed By: Transcribed On: 10/09/2024 10:29 AM Electronically signed by: Meka Munoz 10/09/2024 Thank you for referring DISHA MONTGOMERY to [facility]. Legally authenticated by DAMIÁN TALAMANTES 2024-10-09 10:29:35 Procedure Note Provider, Abelardo Bethpage - 10/10/2024 [id number] [place] [address] Name: DISHA MONTGOMERY Exam Date: 10/09/2024 : 1960 Age 64 years Gender: F Physician: Julia Quiroz Facility: [facility] Facility HSV: Outpatient Exam: RIBS UNILAT 2VWS RT EXAM DESCRIPTION: RIBS UNILAT 2VWS RT CLINICAL HISTORY: 64 years Female, rib pain COMPARISON: 12/18/2021 FINDINGS: The bones are intact. No evidence of acute fracture ordisplacement. The visualized right lung is clear. IMPRESSION: No radiographic evidence of acute disease. Electronically signed by:Meka Munoz MD10/10/2024 10:27 PM EST Dictated By: Meka Munoz Transcribed By: Transcribed On: 10/09/2024 10:29 AM Electronically signed by: Meka Munoz 10/09/2024 Thank you for referring DISHA MONTGOMERY to [facility]. Legally authenticated by DAMIÁN TALAMANTES 2024-10-09 10:29:35 us Julia Quiroz MANUFACTURING PLANT TECHNICIAN, DNP IMG XR PROCEDURES Fin al Result documented in this encounter Visit Diagnoses Not on filedocumented in this encounter Additional Health Concerns Infection Onset Date Last Indicated Resolved Time COVID-19 Rule-Out 11/01/2023 11/01/2023 Assessment Noted Time PHQ-9 Depression Total Score: 0 10/09/20 24 9:41 AM EST A fall risk assessment has been complete d for the patient 08/13/2024 3:06 PM EDT A Body Mass Index follow-up plan has been documented for the patient 10/09/2024 10:18 AM EST documented as of this encounter Care Teams Sr Vice President Relationship Specialty Start Date End Date Alda Sandra MD [address] [place] [address] PCP - General 03/13/21 documented as of this encounter
--- OUTSIDE RECORDS SUMMARY | 2025-04-08 13:39 | XMS_ITS | Encounter Summary ---
Author Organization [facility] Address [address] [place] [address] Care Team Providers Care Field Service Representative Name Role Phone Alda Sandra MD Primary Care Provider [phone] Camryn Arzate LPN Unavailable Unavailable Encounter Details Date Type Department Care Team (Late st Contact Info) Description 10/02/2021 Outside Procedure External Location [address] [place] [address] Alda Sandra MD [address] [place] [phone] Social History Tobacco Use Types Packs/Day Years Used Date Smoking Tobacco: Never Cigarettes - 1999 Smokeless Tobacco: Never Alcohol Use Standard Drinks/Week Comments Yes 0 (1 standard drink = 0.6 oz pure alcohol) Alcoholic Drinks/day: Minimum alcohol consumption PHQ-2 Answer Date Recorded Patient Health Questionnaire-2 Score 0 04/09/2021 Comments Unknown Sex and Gender Information Value Date Recorded Sex Assigned at Female 12/18/2021 7:05 PM EST Legal Sex Female 7:53 PM EDT Gender Identity Female 12/18/2021 7:05 PM EST Sexual Orientation Straight 12/18/2021 7: 05 PM EST documented as of this encounter Plan of Treatment Upcoming Encounters Date Type Department Care Team (Late st Contact Info) Description 04/15/2025 2:15 PM EDT Office Visit [facility] Medicine Specialties [address] [place] [address] Shanice Freedman APRN [address] [place] [address] 05/29/2025 9:30 AM EDT Procedure Visit [facility] Interventional Pain Medicine [address] [place] [address] German Espinosa MD [address] [place] [address] 07/18/2025 1:20 PM EDT Office Visit [facility] [place] [address], [address] [place] [address] Brandi Bermeo MD [address] [place] [address] documented as of this encounter Procedures Procedure Name Priority Date/Time Associated Diagnosis Comments MR HAND LEFT WO IV CONTRAST 10/02/2021 9:55 AM EST documented in this encounter Results * MR Hand Left wo IV Contrast (10/02/2021 9:55 AM EST) Anatomical Region Laterality Modality Hand Left Magnetic Resonan ce 10/02/2021 9:55 AM EST Narrative 10/02/2021 11:55 AM EST [facility] [address] [place] [address] Name: DISHA MONTGOMERY Exam Date: 10/02/2021 : 1960 Age 61 Gender: F Physician: Alda Sandra Facility: [facility] Facility HSV: Outpatient Exam: MRI UPPER EXT NON-JT W/O LT FINAL REPORT CLINICAL HISTORY: left thumb pain injured while her dogs from fighting FINDINGS: Multiplanar MR imaging of the left hand was performed without contrast. The bony structures are intact without evidence of fracture or bone marrow edema. No bony mass is identified. The tendons are intact. The collateral ligaments are grossly unremarkable. The musculature is intact. No soft tissue mass or cyst is identified. IMPRESSION: No focal abnormality identified. Reviewed, Interpreted and Dictated by Corina Snow MD Transcribed by Evy Chand Authenticated by Corina Snow MD on 10/02/2021 11:43:03 [facility] Dictated By: Nick Snow Transcribed By: Transcribed On: 10/02/2021 11:43 AM Electronically signed by: Nick Snow 10/02/2021 Thank you for referring DISHA MONTGOMERY to [facility]. Legally authenticated by FRANCISCO SMITH 2021-10-02 11:43:03 Procedure Note Provider, [facility] - 10/02/2021 [place] [address] Name: DISHA MONTGOMERY Exam Date: 10/02/2021 : 1960 Age 61 Gender: F Physician: Alda Sandra Facility: [facility] Facility HSV: Outpatient Exam: MRI UPPER EXT NON-JT W/O LT FINAL REPORT CLINICAL HISTORY: left thumb pain injured while her dogs from fighting FINDINGS: Multiplanar MR imaging of the left hand was performed without contrast. The bony structures are intact without evidence of fracture or bone marrow edema. No bony mass is identified. The tendons are intact. The collateral ligaments are grossly unremarkable. The musculature is intact. No soft tissue mass or cyst is identified. IMPRESSION: No focal abnormality identified. Reviewed, Interpreted and Dictated by Corina Snow MD Transcribed by Evy Chand Authenticated by Corina Snow MD on 10/02/2021 11:43:03 [facility] Dictated By: Nick Snow Transcribed By: Transcribed On: 10/02/2021 11:43 AM Electronically signed by: Nick Snow 10/02/2021 Thank you for referring DISHA MONTGOMERY to [facility]. Legally authenticated by FRANCISCO SMITH 2021-10-02 11:43:03 us Alda Sandra MD IMG MRI PROCEDURES Final Resu lt documented in this encounter Visit Diagnoses Not on filedocumented in this encounter Additional Health Concerns Infection Onset Date Last Indicated Resolved Time COVID-19 Rule-Out 04/01/2022 04/01/2022 04/01/2022 9:59 PM EDT COVID 19 (Confirmed) 04/01/2022 04/01/2022 022 5:23 AM EDT COVID-19 Rule-Out 11/01/2023 11/01/2023 Assessment Noted Time A fall risk assessment has been complete d for the patient 07/03/2021 1:05 PM EDT documented as of this encounter Care Teams Field Service Representative Relationship Specialty Start Date End Date Alda Sandra MD [address] [place] [phone] PCP - General 03/13/21 Camryn Arzate LPN TCM Nurse 08/01/24 08/31/24 documented as of this encounter
--- OUTSIDE RECORDS SUMMARY | 2025-04-08 13:39 | XMS_ITS | Encounter Summary ---
Author Organization [facility] Address [address] [place] [address] Care Team Providers Care Tester Wafer Substrate Name Role Phone Alda Sandra MD Primary Care Provider [phone] Camryn Arzate LPN Unavailable Unavailable Reason for Visit * Reason Comments Med Refill Encounter Details Date Type Department Care Team (Late st Contact Info) Description 01/19/2024 Refill [facility] [address] [place] [address] Alda Sandra MD [address] [place] [address] Acquired hypothyroidism Social History Tobacco Use Types Packs/Day Years Used Date Smoking Tobacco: Former Cigarettes 1 25 1 977 - 1999 Smokeless Tobacco: Never Alcohol Use Standard Drinks/Week Comments Yes 0 (1 standard drink = 0.6 oz pure alcohol) Alcoholic Drinks/day: Minimum alcohol consumption PHQ-2 Answer Date Recorded Patient Health Questionnaire-2 Score 0 07/08/2023 PHQ-2A Answer Date Recorded Patient Health Questionnaire-2 Score 0 07/08/2023 Comments Unknown Sex and Gender Information Value Date Recorded Sex Assigned at Female 12/18/2021 7:05 PM EST Legal Sex Female 7:53 PM EDT Gender Identity Female 12/18/2021 7:05 PM EST Sexual Orientation Straight 12/18/2021 7: 05 PM EST Occupation Industry Job Start Date Job End Date 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 Not on file Not on file Not on sonido e documented as of this encounter Miscellaneous Notes * Telephone Encounter - Arlette Vance - 01/20/2024 11:14 AM EDT Advised pt she could come in for labs M-F 8-4;30 * Telephone Encounter - Arlette Vance - 01/20/2024 9:33 AM EDT Attempted to call no answer, pt needs to come in for blood work before refills documented in this encounter Plan of Treatment Upcoming Encounters Date Type Department Care Team (Late st Contact Info) Description 04/15/2025 2:15 PM EDT Office Visit [facility] Medicine Specialties [address] [place] [address] Shanice Freedman, STATISTICAL SECRETARY [address] [place] [address] 05/29/2025 9:30 AM EDT Procedure Visit [facility] Interventional Pain Medicine [address] [facility] [place] [address] German Espinosa MD [address] [facility] [address] [place] [address] 07/18/2025 1:20 PM EDT Office Visit [facility] [place] [address] [place] [address] Brandi Bermeo MD [address] [place] [address] documented as of this encounter Visit Diagnoses Diagnosis Acquired hypothyroidism Unspecified hypothyroidism documented in this encounter Additional Health Concerns Infection Onset Date Last Indicated Resolved Time COVID-19 Rule-Out 11/01/2023 11/01/2023 Assessment Noted Time A fall risk assessment has been complete d for the patient 07/08/2023 8:51 AM EDT A Body Mass Index follow-up plan has been documented for the patient 07/08/2023 9:42 AM EDT documented as of this encounter Care Teams Tester Wafer Substrate Relationship Specialty Start Date End Date Alda Sandra MD [address] [place] [phone] PCP - General 03/13/21 Camryn Arzate LPN TCM Nurse 08/01/24 08/31/24 documented as of this encounter
--- OUTSIDE RECORDS SUMMARY | 2025-04-08 13:39 | XMS_ITS | Data Portability ---
Author Organization [facility] [place] [facility] STEVE Lemus ADMIN Address [address] [place] [address] Care Team Providers Care Hvac Design Engineer Name Role Phone TRISTEN SANDRA Primary Care Provider [phone] Assessment No assessment recorded. Plan of Treatment Reminders Order Date Submit Date Provider Last Modified By Organization Details Last Modified Time Details Appointments MEDICAL WEIGHT LOSS FOLLOW UP 2024 08:30A M Junaid Villalpando, DNP, COBBLER MCKAY, LORRY WEIGHER-C Not available Not available Not available Lab None recorded. Referral None recorded. Procedures None recorded. Surgeries None recorded. Imaging None recorded. Medication Orders Wegovy 2.4 mg/0.75 mL subcutane ous pen injector 2024 025 [facility], [address], [place], [address], 02/08/2025 09:14:43 ondansetr on 8 mg disintegr ating tablet 2023 024 [facility] - [facility], [address], [place], [address], 07/30/2024 10:08:04 Wegovy 2.4 mg/0.75 mL subcutane ous pen injector 2023 024 [facility] - [facility], [address], [place], [address], 07/30/2024 09:57:55 Wegovy 2.4 mg/0.75 mL subcutane ous pen injector [address] [facility], [address], [place], [address], 04/30/2024 11:16:18 Wegovy 2.4 mg/0.75 mL subcutane ous pen injector [address] [facility] - [facility], [address], [place], [address], 10/28/2023 14:18:54 Patient TargetsNo targets recorded. Patient InstructionsNo instructions recorded. Reason for Referral None Reported. Problems Name Problem SNOMED Code Status Onset Date Resolution Date Notes Provider Name and Address Organization Details Recorded Time Morbid obesity 079474722 Active [address], [address] [place], [address] , [place] - [facility] - [place] & [place] 2 22:00:11 Body mass index 40+ - severely obese 927422066 Active [address], [address] [place], [address] , [place] [facility] [place] [facility] [place] 2 22:00:11 Weight loss 75945088 Active [address], [address] [place], [address] , [place] [facility] [place] 2 22:00:11 Weight gain 0261977 Active [address]ANNA[address], [address] [facility], [place], [address] , [place] [facility] [place] 2 22:00:11 Obese 535017682 Active [address] [place], [address] , [place] [facility] [place] 2 22:00:11 Essential hypertension 38482524 Active 2022 Junaid Villalpando, ROSALVA, COBBLER MCKAY, LORRY WEIGHER-C [address], [place], [address] , [place] [facility] [place] [facility] [place] 3 09:39:03 Hypothyroidis m 83248513 Active 2022 Junaid Villalpando DNP, COBBLER MCKAY, LORRY WEIGHER-C [address], [place], [address] , [place] [facility] [place] [facility] [place] 3 09:39:10 Nausea 658334581 Active 2023 Junaid Villalpando, ROSALVA, COBBLER MCKAY, LORRY WEIGHER-C [address], [place], [address] , [place] [facility] [place] [facility] [place] 4 09:57:29 Problem Notes None recorded. Procedures Surgical History Date Name Laterality Status Provider Name and Address Organization Details Recorded Time nerve block completed Radha Sewell [place] - [facility] [place] & [place] 5 09:01:55 Hysterectomy completed Cecile KENNEDY - [facility] - [place] & [place] 2 12:59:53 lumbar spinal fusion completed Linda Sifuentes [place] - [facility] & [place] 2 13:00:16 colonoscopy completed Cecile Sifuentes [place] - [facility] [place] & [place] 2 13:00:37 esophagogastroduodenoscopy completed Cecile Sifuentes [place] [facility] [place] 2 13:00:42 Arthroscopic Surgery completed Linda Sifuentes [place] - [facility] [place] & [place] 2 13:01:17 Imaging Results None recorded. Procedure Notes None recorded. Medical Equipment None Reported. Allergies Allergen ID Allergen Name Allergen Category Reaction Reaction Severity Criticality Documentation Date Start Date Code Code System Note Provider Name and Address Organization Details Recorded Time 505153 acetamino phen / oxycodone medicatio n Not available Not available Not available 11/09/2024 47772 3 RxNorm MARCIA Gomes - [facility] & [place] 5 11:54:09 445842 simvastat in medicatio n Not available Not available Not available 11/09/2024 78241 RxNoMARCIA Bright [facility] & [place] 5 11:54:21 Medications Name Sig Start Date Stop Date Status Note LastModified by Organization Details LastModified Time losartan 50 mg tablet Take 1 {tablet} by oral route. 11/12 completed Not Available Not Available Not Available cyclobenzap rine 10 mg tablet TAKE 1 TABLET BY MOUTH THREE TIMES DAILY FOR 5 DAYS active Not Available Not Available No t Available atorvastati n 10 mg tablet TAKE 1 TABLET BY MOUTH ONCE DAILY 07/30 completed Not Available Not Available Not Available azithromyci n 250 mg tablet TAKE 2 TABLETS BY MOUTH ON DAY 1, AND THEN TAKE 1 TABLET BY MOUTH ONCE A DAY ON DAY 2 THROUGH DAY 5 05/30 completed Not Available Not Available Not Available tizanidine 4 mg tablet TAKE 1 TABLET BY MOUTH EVERY 8 HOURS NEEDED FOR MUSCLE SPASM active Not Available Not Available No t Available prednisone 20 mg tablet TAKE 3 TABLETS BY MOUTH ONCE DAILY FOR 3 DAYS THEN 2 TABS ONCE DAILY FOR 3 DAYS THEN 1 TAB ONCE DAILY FOR 3 DAYS 11/09 completed Not Available Not Available Not Available coenzyme Q10 60 mg capsule active Not Available Not Available Not Available metoprolol succinate ER 100 mg tablet,exte nded release 24 hr TAKE 1 TABLET BY MOUTH ONCE DAILY. DO NOT CRUSH OR CHEW active Not Available Not Available No t Available ondansetron 8 mg disintegrat ing tablet DISSOLVE 1 TABLET IN MOUTH TWICE DAILY NEEDED FOR NAUSEA active Not Available Not Available No t Available levothyroxi ne 75 mcg tablet TAKE 1 TABLET BY MOUTH ONCE DAILY 10/28 completed Not Available Not Available Not Available levothyroxi ne 88 mcg tablet TAKE 1 TABLET BY MOUTH ONCE DAILY active Not Available Not Available No t Available calcium 500 mg (as calcium carbonate 1,250 mg) tablet Take 1 {tablet_w ith_meals } twice a day by oral route. 08/06 completed Not Available Not Available Not Available levothyroxi ne 50 mcg tablet 08/06 completed Not Available Not Available Not Available lidocaine 5 % topical patch APPLY ONE PATCH TOPICALLY ONE TIME EACH DAY OVER 12 HOURS FOR 14 DAYS TO PAINFUL AREAS, REMOVE FOR 12 HOURS active Not Available Not Available No t Available metoprolol tartrate 50 mg tablet TAKE 1 TABLET BY MOUTH TWICE DAILY 07/30 completed Not Available Not Available Not Available triamterene 37.5 mg-hydrochl orothiazide 25 mg tablet TAKE 1 TABLET BY MOUTH ONCE DAILY active Not Available Not Available No t Available omeprazole 20 mg capsule,del ayed release TAKE 1 CAPSULE BY MOUTH ONCE DAILY active Not Available Not Available No t Available diclofenac sodium 75 mg tablet,donny yed release TAKE 1 TABLET BY MOUTH TWICE DAILY (DO NOT CRUSH, CHEW OR SPLIT) active Not Available Not Available No t Available levofloxaci n 750 mg tablet Take 1 {tablet} by oral route. 08/06 completed Not Available Not Available Not Available albuterol sulfate HFA 90 mcg/actuati on aerosol inhaler INHALE 2 PUFFS BY MOUTH ONCE DAILY NEEDED FOR WHEEZING OR SHORTNESS OF BREATH active Not Available Not Available No t Available ondansetron 4 mg disintegrat ing tablet PLACE 1 TABLET UNDER THE TONGUE TWICE A DAY active Not Available Not Available No t Available losartan 100 mg tablet TAKE 1 TABLET BY MOUTH ONCE DAILY active Not Available Not Available No t Available fluticasone propionate 50 mcg/actuati on nasal spray,suspe nsion USE 1 SPRAY(S) IN EACH NOSTRIL TWICE DAILY active Not Available Not Available No t Available brimonidine 0.15 % eye drops INSTILL 1 DROP INTO RIGHT EYE TWICE DAILY 02/08 completed Not Available Not Available Not Available magnesium gluconate 200 mg tablet Take by oral route. active Not Available Not Available No t Available valsartan 160 mg tablet Take 1 {tablet} by oral route. 08/06 completed Not Available Not Available Not Available metoprolol tartrate 25 mg tablet TAKE 1 TABLET BY MOUTH TWICE DAILY 11/12 completed Not Available Not Available Not Available Cymbalta 60 mg capsule,del ayed release Take 1 {capsule} twice a day by oral route. 08/06 completed Not Available Not Available Not Available magnesium citrate 07/30 completed Not Available Not Available Not Available calcium active Not Available Not Avail able Not Available vitamin E active Not Available Not Mer ilable Not Available Vitamin D3 active Not Available Not Av ailable Not Available multivitami n active Not Available Not Available Not Available BD Ultra-Fine Short Pen Needle 31 gauge x 5/16 USE DIRECTED SUBCUTANE OUSLY ONCE DAILY 05/30 completed Not Available Not Available Not Available acetylcyste ine 600 mg capsule TAKE 1 CAPSULE BY MOUTH ONCE DAILY 08/06 completed Not Available Not Available Not Available vitamin B complex-vit B12 active Not Available Not Available Not Available pitavastati n calcium 1 mg tablet TAKE 1 TABLET BY MOUTH ONCE DAILY 11/09 completed Not Available Not Available Not Available Dulera 200 mcg-5 mcg/actuati on HFA aerosol inhaler INHALE 2 PUFFS BY MOUTH TWICE DAILY active Not Available Not Available No t Available selenium 200 mcg capsule Take by oral route. active Not Available Not Available No t Available Saxenda 3 mg/0.5 mL (18 mg/3 mL) subcutaneou s pen injector INJECT 3MG SUBCUTANE OUSLY ONCE DAILY 05/30 completed Not Available Not Available Not Available acetylcyste ine 500 mg capsule 08/06 completed Not Available Not Available Not Available BD Ultra-Fine Micro Pen Needle 32 gauge x 1/4 USE DIRECTED SUBCUTANE OUSLY DAILY 05/30 completed Not Available Not Available Not Available Plenvu 140 gram-9 gram-5.2 gram powder packs TAKE DIRECTED PER INSTRUCTI ONS GIVEN TO YOU FOR YOUR COLONOSCO PY 08/06 completed Not Available Not Available Not Available Wegovy 2.4 mg/0.75 mL subcutaneou s pen injector INJECT 2.4 MG (0.75 ML) SUBCUTANE OUSLY ONCE A WEEK active Not Available Not Available No t Available Wegovy 0.25 mg/0.5 mL subcutaneou s pen injector INJECT 0.25MG SUBCUTANE OUSLY ONCE A WEEK 08/06 completed Not Available Not Available Not Available Breyna 160 mcg-4.5 mcg/actuati on HFA aerosol inhaler INHALE 2 PUFFS BY MOUTH TWICE DAILY. RINSE MOUTH WITH WATER AFTER USE TO REDUCE AFTERTAST E AND INCIDENCE OF CANDIDIAS IS. DO NOT SWALLOW 04/30 completed Not Available Not Available Not Available Vitals Date Recorded Body height Body temperature Heart rate Body mass index (BMI) Body weight Systolic blood pressure Diastolic blood pressure Provider Name and Address Organization Details Last Updated DateTime 5 165.1 cm 97.4 [degF] 76 /min 37.2 kg/m2 131362. 97 g 145 mm[Hg] 95 mm[Hg] Radha KENNEDY [facility] & [place] 5 11:58:55 Date Recorded Body height Body temperature Heart rate Body mass index (BMI) Body weight Systolic blood pressure Diastolic blood pressure Provider Name and Address Organization Details Last Updated DateTime 5 165.1 cm 96.9 [degF] 77 /min 37.5 kg/m2 140414 g 153 mm[Hg] 89 mm[Hg] Radha KENNEDY [facility] & [place] 5 09:02:13 Date Recorded Body height Body mass index (BMI) Body weight Body temperature Heart rate Systolic blood pressure Diastolic blood pressure Provider Name and Address Organization Details Last Updated DateTime 4 165.1 cm 39.5 kg/m2 937566. 47 g 97.2 [degF] 97.2 /min 138 mm[Hg] 87 mm[Hg] Radha KENNEDY [facility] & [place] 4 11:01:56 Date Recorded Body height Body mass index (BMI) Body weight Provider Name and Address Organization Details Last Updated DateTime 07/30/2024 165.1 cm 39.1 kg/m2 890454.85 g Radha KENNEDY [facility] & [place] 07/30/2024 09:44:44 Date Recorded Body height Body mass index (BMI) Body weight Body temperature Heart rate Systolic blood pressure Diastolic blood pressure Provider Name and Address Organization Details Last Updated DateTime 3 165.1 cm 40.3 kg/m2 828451. 43 g 97.5 [degF] 80 /min 146 mm[Hg] 94 mm[Hg] Radha KENNEDY [facility] & [place] 3 13:32:37 Social History None recorded. Functional Status Question Answer Note LastModified by Organizat ion Details LastModified Time Do you use any illicit or recreational drugs? No [email or web address] Information not available 08/06/2022 What is your level of alcohol consumption? Occasional [email or web address] Information not available 08/06/2022 Mental Status None recorded. Family History Relationship Description Onset Age of this Age Resolved Age Notes LastModified by Organization Details LastModified Time Mother Disorder of endocrine system pt. added direct ly (08/03) [email or web address] Not available 08/03/2022 13:37:04 Mother Hypertensive disorder pt. added direct ly (08/03) [email or web address] Not available 08/03/2022 13:38:10 Mother Anemia pt. added direct ly (08/03) [email or web address] Not available 08/03/2022 13:38:48 Mother Obesity pt. added direct ly (08/03) [email or web address] Not available 08/03/2022 13:39:15 Brother Disorder of endocrine system pt. added direct ly (08/03) [email or web address] Not available 08/03/2022 13:37:04 Brother Chronic obstructive pulmonary disease pt. added direct ly (08/03) [email or web address] Not available 08/03/2022 13:37:14 Brother Hypertensive disorder pt. added direct ly (08/03) [email or web address]-13 Not available 08/03/2022 13:38:10 Brother Obesity pt. added direct ly (08/03) [email or web address] Not available 08/03/2022 13:39:15 Brother Myocardial infarction pt. added direct ly (02/10) [email or web address] Not available 02/10/2023 12:22:24 Maternal Grandfather Heart disease pt. added direct ly (08/03) [email or web address]-13 Not available 08/03/2022 13:37:36 Maternal Grandfather Hypertensive disorder pt. added direct ly (08/03) [email or web address]-13 Not available 08/03/2022 13:38:10 Father Hypertensive disorder pt. added direct ly (08/03) [email or web address]-13 Not available 08/03/2022 13:38:10 Maternal Aunt Hypertensive disorder pt. added direct ly (08/03) [email or web address]-13 Not available 08/03/2022 13:38:10 Maternal Uncle Heart disease pt. added direct ly (11/09) [email or web address]-13 Not available 11/09/2022 13:51:20 Medical History Condition Response Allergies/Hayfever Y Heart Problems Y Vision or Eye Problems Y Polyps Y Thyroid Problems Y Hypothyroidism Y Asthma Y Constipation Y Reflux/GERD Y High Cholesterol Y Hypertension Y Chicken Pox Y Gynecological HistoryNo gynecological history recorded. Obstetrics History GPAL:G 0 P 0 0 0 0 Immunizations Vaccine Type Date Status Note Provider Nam e and Address Organization Details Recorded Time influenza, unspecified formulation 3 completed Radha montanze, [place] - [facility] [place] & [place] 10/28/2023 13:32:06 influenza, unspecified formulation 4 completed Radha montanez, [place] [facility] [place] 11/09/2024 11:56:27 Influenza, split virus, trivalent, PF [address] , [place], [address], [place] [facility] [place] 08/01/2022 22:00:23 Past Encounters Encounter ID Performer Location Encounter Start Date Encounter Closed Date Diagnosis/Indication Diagnosis SNOMED-CT Code Diagnosis ICD10 Code Diagnosis Note [id number] Junaid Villalpando, DNP, COBBLER MCKAY, LORRY WEIGHER-C [facility] [address] [place] [address] 08/06/2022 12:50:12 08/06/2022 13:46:56 History of bariatric surgical procedure 228026575 Z98.84 Body mass index 40+ - severely obese 489424950 Z68.41 Advised qid intake 50% protein 6942-3939 calories/d y less than 100 carbs/dy Long discussion today of [employer] results including PBF(percen t body fat) SMM (skeletal muscle mass) Visceral fat level level BMR Segmental Fat Analysis and Segmental Lean Analysis. Patient encouraged pt to take minimal calories as per BMR and to anticipate changes in SMM and PBF values not just total weight. Repeat GIL in 2-3mth suggested. Patient was reassured on today's visit. Dialogue content in great detail regarding the benefits of proper diet as well as regular and routine exercise. In regards to exercise, we discussed reaching target heart rate for least 20 minutes 3 times a week. We also highlighte d the importance of staying well hydrated. Proper handwashin g was also encouraged . Patient was advised to keep in close contact with their primary care provider and/or any specialty provider (s). Weight loss 80559713 R63 .4 Morbid obesity 827476965 E66.01 [id number] Junaid Villalpando DNP, COBBLER MCKAY, LORRY WEIGHER-[facility] [address] [facility] [address] [place] [address] 11/12/2022 09:03:52 11/12/2022 09:38:55 Morbid obesity 561414197 E66.01 Patient was reassured on today's visit. Dialogue content in great detail regarding the benefits of proper diet as well as regular and routine exercise. In regards to exercise, we discussed reaching target heart rate for least 20 minutes 3 times a week. We also highlighte d the importance of staying well hydrated. Proper handwashin g was also encouraged . Patient was advised to keep in close contact with their primary care provider. The plan of care was discussed with patient and all questions were answered. Plan will be to keep her on current dose of Saxenda. Will follow-up in 3 months, sooner if needed. Weight gain 8158062 R63. 5 Essential hypertension 25371307 I10 Hypothyroidism 68336629 E03.9 [id number] Junaid Villalpando, ROSALVA, COBBLER MCKAY, LORRY WEIGHER-C [facility] [address] [facility] [address] [place] [address] 02/11/2023 09:27:53 02/11/2023 10:46:28 Essential hypertension 71782535 I10 Hypothyroidism 88689838 E03.9 Morbid obesity 185016440 E66.01 Patient was reassured on today's visit. Dialogue content in great detail regarding the benefits of proper diet as well as regular and routine exercise. In regards to exercise, we discussed reaching target heart rate for least 20 minutes 3 times a week. We also highlighte d the importance of staying well hydrated. Proper handwashin g was also encouraged . Patient was advised to keep in close contact with their primary care provider. The plan of care was discussed with patient and all questions were answered. Plan will be to keep her on current dose of Saxenda. Will follow-up in 3 months, sooner if needed. We had a candid conversati on emanuel about possible WLS. Pt said her is aganst WLS at this time. Weight gain 5692905 R63. 5 [id number] Junaid Villalpando, ROSALVA, COBBLER MCKAY, LORRY WEIGHER-C [facility] [address] [facility] [address] [place] [address] 05/30/2023 13:59:21 05/30/2023 14:57:22 Essential hypertension 99552976 I10 Hypothyroidism 42205428 E03.9 Morbid obesity 939514435 E66.01 Patient was reassured on today's visit. Dialogue content in great detail regarding the benefits of proper diet as well as regular and routine exercise. In regards to exercise, we discussed reaching target heart rate for least 20 minutes 3 times a week. We also highlighte d the importance of staying well hydrated. Proper handwashin g was also encouraged . Patient was advised to keep in close contact with their primary care provider. The plan of care was discussed with patient and all questions were answered. Plan will be to keep her on current dose of Saxenda. Will follow-up in 6 months, sooner if needed. Weight loss 38990803 R63 .4 [id number] Junaid Villalpando DNP, COBBLER MCKAY, LORRY WEIGHER-C [facility] [address] [facility] [address] [place] [address] 10/28/2023 13:23:56 10/28/2023 13:46:33 Essential hypertension 63642266 I10 Hypothyroidism 82469472 E03.9 Morbid obesity 373184494 E66.01 Patient was reassured on today's visit. Dialogue content in great detail regarding the benefits of proper diet as well as regular and routine exercise. In regards to exercise, we discussed reaching target heart rate for least 20 minutes 3 times a week. We also highlighte d the importance of staying well hydrated. Proper handwashin g was also encouraged . Patient was advised to keep in close contact with their primary care provider. The plan of care was discussed with patient and all questions were answered. Plan will be to keep her on current dose of Saxenda. Will follow-up in 6 months, sooner if needed. Weight loss 71945391 R63 .4 [id number] Junaid Villalpando DNP, COBBLER MCKAY, LORRY WEIGHER-C [facility] [address] [facility] [address] [place], [place] [address] 04/30/2024 10:39:50 05/02/2024 16:19:33 Morbid obesity 380236314 E66.01 Patient was reassured on today's visit. Dialogue content in great detail regarding the benefits of proper diet as well as regular and routine exercise. In regards to exercise, we discussed reaching target heart rate for least 20 minutes 3 times a week. We also highlighte d the importance of staying well hydrated. Proper handwashin g was also encouraged . Patient was advised to keep in close contact with their primary care provider. The plan of care was discussed with patient and all questions were answered. Plan will be to keep her on current dose of Saxenda. Will follow-up in 6 months, sooner if needed. [id number] Junaid Villalpando DNP, APRN, LORRY WEIGHERTenisha [facility] [address] [facility] [address] [place] [address] 07/30/2024 09:31:32 07/30/2024 13:36:07 Morbid obesity 492327336 E66.01 Patient was reassured on today's visit. Dialogue content in great detail regarding the benefits of proper diet as well as regular and routine exercise. In regards to exercise, we discussed reaching target heart rate for least 20 minutes 3 times a week. We also highlighte d the importance of staying well hydrated. Proper handwashin g was also encouraged . Patient was advised to keep in close contact with their primary care provider. The plan of care was discussed with patient and all questions were answered. Plan will be to keep her on current dose of Wegovy. Will follow-up in 3 months, sooner if needed. I did offer dietitian visit, but pt declines. Weight loss 57064877 R63 .4 Hypothyroidism 48429387 E03.9 Essential hypertension 11355502 I10 Nausea 392091485 R11.0 [id number] Junaid Villalpando DNP, COBBLER MCKAY, LORRY WEIGHER-C [facility] [address] [facility] [address] [place] [address] 11/09/2024 11:42:11 11/09/2024 12:15:02 Hypothyroidism 89064795 E03.9 Essential hypertension 08948447 I10 Morbid obesity 921325687 E66.01 Patient was reassured on today's visit. Dialogue content in great detail regarding the benefits of proper diet as well as regular and routine exercise. In regards to exercise, we discussed reaching target heart rate for least 20 minutes 3 times a week. We also highlighte d the importance of staying well hydrated. Proper handwashin g was also encouraged . Patient was advised to keep in close contact with their primary care provider. The plan of care was discussed with patient and all questions were answered. Plan will be to keep her on current dose of Wegovy. Will follow-up in 3 months, sooner if needed. I did offer dietitian visit, but pt declines. Weight loss 85980635 R63 .4 [id number] Junaid Villalpando, DNP, COBBLER MCKAY, LORRY WEIGHER-C [facility] [address] [facility] [address] [place] [address] 02/08/2025 08:52:06 02/08/2025 09:23:51 Morbid obesity 545474984 E66.01 Patient was reassured on today's visit. Dialogue content in great detail regarding the benefits of proper diet as well as regular and routine exercise. In regards to exercise, we discussed reaching target heart rate for least 20 minutes 3 times a week. We also highlighte d the importance of staying well hydrated. Proper handwashin g was also encouraged . Patient was advised to keep in close contact with their primary care provider. The plan of care was discussed with patient and all questions were answered. Plan will be to keep her on current dose of Wegovy. Will follow-up in 3 months, sooner if needed. I did offer dietitian visit, but pt declines. Essential hypertension [id number] I10 Hypothyroidism 41376853 E03.9 Health Concerns Section Related Observation LastModified by Organization Detai ls LastModified Time None Recorded Concern Status LastModified by Organization Details LastModified Time None Recorded Advance Directives Directive None Recorded Payers Insurance Date Sequence Insurance Name Policy Number Policy Elizalde Covered Member ID Elizalde Member ID Guarantor Name 04/25/2024 2 [place] Gem Garciaby [id number] Gem Montgomery 02/05/2025 1 [place] Gem Montgomery [id number] Gem Montgomery 02/11/2025 2 [facility] [id number] R Jamal Montgomery [id number] Gem Montgomery Notes Date Note Type Note Provider Name and Address Organization Details Recorded Time 10/28/2023 text/html Patient presents the office today for routine follow-up on Medical Weight Loss. Patient is currently taking Wegovy at the 2.4 mg dose. Patient currently reports no side effects from current medication regimen. Patient doing well. Reports q.i.d. small meal intake. Reports 85-100g/dy protein intake and good hydration. Daily Calories 1400Taking routine vitamins as advised.Pt Denies : abdominal pain, prandial issues Nausea, Vomiting, bowel or bladder issuesTotal Weight loss Since last office visit has been 4.4 lbs Today's InBody reveals a skeletal muscle mass of 63.9 lb, body fat mass 126.3 lb, BMI of 40.3, % body fat 52.1, basal metabolic rate of 1506 kilo calories Junaid Villalpando DNP, COBBLER MCKAY, LORRY WEIGHER-C [address] , [place], [address], [facility] & [place] 10/28/2023 14:24:47 04/30/2024 text/html Patient presents the office today for routine follow-up on Medical Weight Loss. Patient is currently taking Wegovy at the 2.4 mg dose. Patient currently reports no side effects from current medication regimen. Patient doing well. Reports q.i.d. small meal intake. Reports tried to get 100g/dy protein intake and good hydration.Daily Calories 0328-6208. Taking routine vitamins as advised. Pt Denies : abdominal pain, prandial issues Nausea, Vomiting, bowel or bladder issuesTotal Weight loss Since last office visit has been 5 lbs Today's InBody reveals a skeletal muscle mass of 62.4 lb, body fat mass 123.3 lb, BMI of 39.5, % body fat 52.0, basal metabolic rate of 1487 kilo calories Junaid Villalpando DNP, COBBLER MCKAY, LORRY WEIGHER-C [address], [place], [address], [facility] & [place] 04/30/2024 13:20:43 07/30/2024 text/html Patient presents the office today for routine follow-up on Medical Weight Loss. Patient is currently taking Wegovy at the 2.4 mg dose. Patient currently reports no side effects from current medication regimen. Patient doing well. Reports q.i.d. small meal intake. Reports 90-95g/dy protein intake and good hydration. Daily Calories has not been counting, but estimates 6587-6693.Taking routine vitamins as advised.Pt Denies : abdominal pain, prandial issues Nausea, Vomiting, bowel or bladder issuesTotal Weight loss Since last office visit has been 2.4 lbsShe recently seen her cardiologisit and he placed her on Lipitor for cholersterol issues. she only took this for 2 weeks due to side effects of leg soreness. She is to see her PCP Dr. Sandra in [facility].Today's InBody reveals a skeletal muscle mass of 62.6 lb, body fat mass 120.5 lb, BMI of 39.1, % body fat 51.3, basal metabolic rate of 1492 kilo calories Junaid Villalpando DNP, KEYSHA, LORRY WEIGHER-C [address] [facility], [place], [address], [facility] & [place] 07/30/2024 10:15:26 11/09/2024 text/html Patient presents the office today for routine follow-up on Medical Weight Loss. Patient is currently taking Wegovy at the 2.4 mg dose. Patient currently reports no side effects from current medication regimen. Patient doing well. Reports q.i.d. small meal intake. Reports 100g/dy protein intake and good hydration. Daily Calories 1200Taking routine vitamins as advised.Pt Denies : abdominal pain, prandial issues Nausea, Vomiting, bowel or bladder issuesTotal Weight loss Since last office visit has been 11.1 lbs Today's InBody reveals a skeletal muscle mass of 61.1 lb, body fat mass 112.0 lb, BMI of 37.2, % body fat 50.0, basal metabolic rate of 1465 kilo calories Junaid Villalpando DNP, COBBLER MCKAY, LORRY WEIGHER-C [address], [place], [address], [facility] & [place] 11/09/2024 12:12:41 02/08/2025 text/html Patient presents the office today for routine follow-up on Medical Weight Loss. Patient is currently taking Wegovy at the 2.4 mg dose. Patient currently reports no side effects from current medication regimen. Patient doing well. Reports q.i.d. small meal intake. Reports not counting g/dy protein intake and good hydration. Daily Calories has not been counting Taking routine vitamins as advised.Pt Denies : abdominal pain, prandial issues Nausea, Vomiting, bowel or bladder issuesTotal Weight gain Since last office visit has been 1.7 lbs. She is getting ready to go to [place] in February. Today's InBody reveals a skeletal muscle mass of 61.7 lb, body fat mass 111.7 lb, BMI of 37.5, % body fat 49.6, basal metabolic rate of 1483 kilo calories Junaid Villalpando, ROSALVA, COBBLER MCKAY, LORRY WEIGHER-C [address], [place], [address], [facility] & [place] 02/08/2025 11:25:57 OBGyn Episode No OBEpisode recorded.
--- OUTSIDE RECORDS SUMMARY | 2025-04-08 13:39 | XMS_ITS | Encounter Summary ---
Author Organization [facility] Address [address] [place] [address] Care Team Providers Care Visual Manager Name Role Phone Alda Sandra MD Primary Care Provider [phone] Camryn Arzate LPN Unavailable Unavailable Encounter Details Date Type Department Care Team (Late st Contact Info) Description 05/12/2021 Outside Procedure External Location [address] [place] [address] Kavitha Carter, KAIAKO KURA KAUPAPA MAORI [address] [place] [address] Social History Tobacco Use Types Packs/Day Years Used Date Smoking Tobacco: Former Smokeless Tobacco: Never Alcohol Use Standard Drinks/Week [...] Description 04/15/2025 2:15 PM EDT Office Visit [facility] Medicine Specialties [address], [address] [place] [address] Shanice Freedman, KEYSHA [address] [place] [address] 05/29/2025 9:30 AM EDT Procedure Visit [facility] Interventional Pain Medicine [address] [place] [address] German Espinosa MD [address] [place] [address] 07/18/2025 1:20 PM EDT Office Visit [facility] [place] [address], [address] [place] [address] Brandi Bermeo MD [address] [place] [address] documented as of this encounter Procedures Procedure Name Priority Date/Time Associated Diagnosis Comments MR HIP RIGHT WO IV CONTRAST 05/12/2021 9:53 AM EDT documented in this encounter Results * MR Hip Right wo IV Contrast (05/12/2021 9:53 AM EDT) Anatomical Region Laterality Modality Hip Right Magnetic Resonan ce 05/12/2021 9:53 AM EDT Narrative 05/12/2021 12:38 PM EDT [facility] [address] [place] [address] Name: DISHA MONTGOMERY Exam Date: 05/12/2021 : 1960 Age 60 Gender: F Physician: KAVITHA CARTER Facility: [facility] Facility HSV: Outpatient Exam: MRI HIP W/O RT FINAL REPORT CLINICAL HISTORY: right hip pain no known trauma or injury FINDINGS: Multiplanar MR imaging of the right hip was performed without contrast. Mild degenerative change is present. There is no evidence of fracture or dislocation. There is no evidence of avascular necrosis. No bony mass is identified. No labral tear is identified. Small joint effusion is seen. There is a high-grade complete or near-complete tear of the distal gluteus minimus tendon with adjacent soft tissue edema. There is a small partial tear at the insertion of the gluteus medius tendon. The musculature is intact. No soft tissue mass or cyst is identified. IMPRESSION: Tears of the gluteus medius and minimus tendons as detailed above. Reviewed, Interpreted and Dictated by Rudy Kaur III, MD Transcribed by Evy Chand Authenticated by Rudy Kaur III, MD on 05/12/2021 12:25:17 PMEASTERN Dictated By: Rudy Kaur III Transcribed By: Transcribed On: 05/12/2021 12:25 PM Electronically signed by: Rudy Kaur III 05/12/2021 Thank you for referring DISHA MONTGOMERY to [facility]. Legally authenticated by ALMA Kahn III 2021-05-12 12:25:17 Procedure Note Provider, [facility] - 05/12/2021 [address] [place] [address] Name: DISHA MONTGOMERY Exam Date: 05/12/2021 : 1960 Age 60 Gender: F Physician: KAVITHA CARTER Facility: [facility] Facility HSV: Outpatient Exam: MRI HIP W/O RT FINAL REPORT CLINICAL HISTORY: right hip pain no known trauma or injury FINDINGS: Multiplanar MR imaging of the right hip was performed without contrast. Mild degenerative change is present. There is no evidence of fracture or dislocation. There is no evidence of avascular necrosis. No bony mass is identified. No labral tear is identified. Small joint effusion is seen. There is a high-grade complete or near-complete tear of the distal gluteus minimus tendon with adjacent soft tissue edema. There is a small partial tear at the insertion of the gluteus medius tendon. The musculature is intact. No soft tissue mass or cyst is identified. IMPRESSION: Tears of the gluteus medius and minimus tendons as detailed above. Reviewed, Interpreted and Dictated by Rudy Kaur III, MD Transcribed by Evy Chand Authenticated by Rudy Kaur III, MD on 05/12/2021 12:25:17 PMEASTERN Dictated By: Rudy Kaur III Transcribed By: Transcribed On: 05/12/2021 12:25 PM Electronically signed by: Rudy Kaur III 05/12/2021 Thank you for referring DISHA MONTGOMERY to [facility]. Legally authenticated by ALMA Kahn III 2021-05-12 12:25:17 Kavitha Carter APRN IMG MRI PROCEDURES Final Result documented in this encounter Visit Diagnoses Not on filedocumented in this encounter Additional Health Concerns Infection Onset Date Last Indicated Resolved Time COVID-19 Rule-Out 04/01/2022 04/01/2022 04/01/2022 9:59 PM EDT COVID 19 (Confirmed) 04/01/2022 04/01/2022 022 5:23 AM EDT COVID-19 Rule-Out 11/01/2023 11/01/2023 documented as of this encounter Care Teams Visual Manager Relationship Specialty Start Date End Date Alda Sandra MD [address] [place] [address] PCP - General 03/13/21 Camryn Arzate LPN TCM Nurse 08/01/24 08/31/24 documented as of this encounter
--- OUTSIDE RECORDS SUMMARY | 2025-04-08 13:39 | XMS_ITS | Encounter Summary ---
Author Organization [facility] Address [address] [place] [address] Care Team Providers Care Collections Curator Name Role Phone Alda Sandra MD Primary Care Provider [phone] Camryn Arzate LPN Unavailable Unavailable Encounter Details Date Type Department Care Team (Late st Contact Info) Description 07/20/2024 Outside Procedure External Location [address] [place] [address] Alda Sandra MD [address] [place] [address] Social History Tobacco Use Types Packs/Day Years Used Date Smoking Tobacco: Former Cigarettes 25 1 977 - 1999 Passive Smoke Exposure: Never Smokeless Tobacco: Never Alcohol Use Standard Drinks/Week Comments Yes 0 (1 standard drink = 0.6 oz pure alcohol) Alcoholic Drinks/day: Minimum alcohol consumption Humiliation, Afraid, Rape, and Kick questionnair e Answer Date Recorded Within the last year, have y ou been afraid of your partner or ex-partner? No 01/27/2024 Within the last year, have y ou been humiliated or emotionally abused in other ways by your partner or ex-partner? No Within the last year, have y ou been kicked, hit, slapped, or otherwise physically hurt by your partner or ex-partner? No 01/27/2024 Within the last year, have y ou been raped or forced to have any kind of sexual activity by your partner or ex-partner? No 01/27/2024 PHQ-2 Answer Date Recorded Patient Health Questionnaire-2 Score 0 07/12/2024 Hunger Vital Sign Answer Date Recorded Within the past 12 months, y ou worried that your food would run out before you got the money to buy more. Never true 01/27/20 24 Within the past 12 months, t he food you bought just didn't last and you didn't have money to get more. Never true 01/27/2024 PRAPARE - Transportation Answer Date Re corded In the past 12 months, has l ack of transportation kept you from medical appointments or from getting medications? No 12/30 In the past 12 months, has l ack of transportation kept you from meetings, work, or from getting things needed for daily living? No 01/27/2024 Housing Stability Vital Sign Answer Angel e Recorded In the last 12 months, was t here a time when you were not able to pay the mortgage or rent on time? No 01/27/2024 In the last 12 months, how many places have you lived? 1 01/27/2024 In the last 12 months, was t here a time when you did not have a steady place to sleep or slept in a correction (including now)? No 01/27/2024 Utilities Answer Date Recorded In the past 12 months has th e electric, gas, oil, or water company threatened to shut off services in your home? No 01/27/2024 PHQ-2A Answer Date Recorded Patient Health Questionnaire-2 [...] sonido e documented as of this encounter Plan of Treatment Upcoming Encounters Date Type Department Care Team (Late st Contact Info) Description 04/15/2025 2:15 PM EDT Office Visit [facility] [address] [place] [address] Shanice Freedman APRN [address] [place] [address] 05/29/2025 9:30 AM EDT Procedure Visit [facility] Interventional Pain Medicine [address] [place] [address] German Espinosa MD [address] [place] [address] 07/18/2025 1:20 PM EDT Office Visit [facility] [place] [address], [address] [place] [address] Brandi Bermeo MD [address] [place] [address] documented as of this encounter Procedures Procedure Name Priority Date/Time Associated Diagnosis Comments MAMMOGRAPHY BREAST SCREENING TOMOSYNTHESIS BILATERAL 07/20/2024 9:03 AM EDT documented in this encounter Results * Mammography Breast Screening Tomosynthesis Bilateral (07/20/2024 9:03 AM EDT) Anatomical Region Laterality Modality Breast Bilateral Mammography 07/20/2024 9:03 AM EDT Narrative 07/20/2024 10:24 AM EDT [facility] [address] [place] [address] Name: DISHA MONTGOMERY Exam Date: 07/20/2024 : 1960 Age 64 years Gender: F Physician: Alda Sandra Facility: [facility] Facility HSV: Outpatient Exam: ISELA SCRN MAMMO W/CAD BILAT Exam: 3-D screening mammography including tomosynthesis and CAD (Computer Assisted Detection). Clinical indication: Asymptomatic screening exam Comparison: Exams to 2020 TECHNIQUE: Routine bilateral 2D screening mammogram with CC and MLO views obtained. 3-D tomosynthesis and Computer assisted detection were utilized for this exam. BREAST DENSITY: There are scattered fibroglandular densities FINDINGS: No suspicious mass, architectural distortion, or suspicious calcifications are present. IMPRESSION: No evidence of malignancy in either breast Recommendation: Annual screening mammography recommended in one year The results of this report will be communicated to the patient by letter in layman's terms. ACR BI-RADS: BI-RADS assessment category 1: Negative mammogram Mammography does not detect approximately 10-15% of breast cancers. A normal mammogram does not exclude breast cancer in a patient with palpable mass or abnormal findings on physical examination. These patients may need biopsies and when clinically indicated a biopsy should not be postponed because of a normal mammogram. If the patient has breast surgery or biopsy, FDA/SA Regulatory Guidelines mandate that this facility receive pathologic results for follow-up correlation. Electronically signed by:German Isbell MD07/20/2024 10:21 AM EDT Dictated By: German Isbell Transcribed By: Transcribed On: 07/20/2024 9:54 AM Electronically signed by: German Isbell 07/20/2024 Thank you for referring DISHA MONTGOMERY to [facility]. Legally authenticated by NANCI MULLEN 2024-07-20 09:54:29 Procedure Note Provider, [facility] - 07/20/[address] [address] Name: DISHA MONTGOMERY Exam Date: 07/20/2024 : 1960 Age 64 years Gender: F Physician: Alda Sandra Facility: [facility] Facility HSV: Outpatient Exam: ISELA SCRN MAMMO W/CAD BILAT Exam: 3-D screening mammography including tomosynthesis and CAD(Computer Assisted Detection). Clinical indication: Asymptomatic screening exam Comparison: Exams to 2020 TECHNIQUE: Routine bilateral 2D screening mammogram with CC and MLOviews obtained. 3-D tomosynthesis and Computer assisted detection were utilizedfor this exam. BREAST DENSITY: There are scattered fibroglandular densities FINDINGS: No suspicious mass, architectural distortion, or suspicious calcifications are present. IMPRESSION: No evidence of malignancy in either breast Recommendation: Annual screening mammography recommended in one year The results of this report will be communicated to the patient by letterin layman's terms. ACR BI-RADS: BI-RADS assessment category 1: Negative mammogram Mammography does not detect approximately 10-15% of breast cancers. Anormal mammogram does not exclude breast cancer in a patient with palpable massor abnormal findings on physical examination. These patients may needbiopsies and when clinically indicated a biopsy should not be postponed because ofa normal mammogram. If the patient has breast surgery or biopsy, FDA/SA Regulatory Guidelines mandate that this facility receive pathologicresults for follow-up correlation. Electronically signed by:German Isbell MD07/20/2024 10:21 AM EDT RP Dictated By: German Isbell Transcribed By: Transcribed On: 07/20/2024 9:54 AM Electronically signed by: German Isbell 07/20/2024 Thank you for referring DISHA MONTGOMERY to [facility]. Legally authenticated by NANCI MULLEN 2024-07-20 09:54:29 us Alda Sandra MD IMG BI PROCEDURES Final Resul t documented in this encounter Visit Diagnoses Not on filedocumented in this encounter Additional Health Concerns Infection Onset Date Last Indicated Resolved Time COVID-19 Rule-Out 11/01/2023 11/01/2023 Assessment Noted Time A fall risk assessment has been complete d for the patient 07/12/2024 1:32 PM EDT A Body Mass Index follow-up plan has been documented for the patient 07/12/2024 2:39 PM EDT documented as of this encounter Care Teams Collections Curator Relationship Specialty Start Date End Date Alda Sandra MD [address] [place] [id number] PCP - General 03/13/21 Camryn Arzate LPN TCM Nurse 08/01/24 08/31/24 documented as of this encounter
--- OUTSIDE RECORDS SUMMARY | 2025-04-08 13:39 | XMS_ITS | Encounter Summary ---
Author Organization [facility] Address [address] [place] [address] Care Team Providers Care Light Rail Train Operator Name Role Phone Alda Sandra MD Primary Care Provider [phone] Camryn Arzate LPN Unavailable Unavailable Encounter Details Date Type Department Care Team (Late st Contact Info) Description 12/18/2021 Outside Procedure External Location [address] [place] [address] Alda Sandra MD [address] [place] [address] Social History Tobacco Use Types Packs/Day Years Used Date Smoking Tobacco: Former Cigarettes 23 1 977 - 1999 Smokeless Tobacco: Never [...] Orientation Straight 12/18/2021 7: 05 PM EST COVID-19 Exposure Response Date Recorded In the last month, have you been in contact with someone who was confirmed or suspected to have Coronavirus / COVID-19? Unable to assess 12/18/2021 8:29 AM EST documented as of this encounter Plan of Treatment Upcoming Encounters Date Type Department Care Team (Late st Contact Info) Description 04/15/2025 2:15 PM EDT Office Visit [facility] Medicine Specialties [address] [place] [address] Shanice Freedman, FORESTRY SUPPORT SPECIALIST [address] [place] [address] 05/29/2025 9:30 AM EDT Procedure Visit [facility] Interventional Pain Medicine [address] [place] [address] German Espinosa MD [address] [place] [address] 07/18/2025 1:20 PM EDT Office Visit [facility] [place] [address], [address] [place] [address] Brandi Bermeo MD [address] [place] [address] documented as of this encounter Procedures Procedure Name Priority Date/Time Associated Diagnosis Comments XR CHEST 2 VIEWS 12/18/2021 10:0 0 AM EST documented in this encounter Results * XR Chest 2 Views (12/18/2021 10:00 AM EST) Anatomical Region Laterality Modality Chest Radiographic Ayala ging 12/18/2021 10:0 0 AM EST Narrative 12/18/2021 10:53 AM EST [facility] [address] [place] [address] Name: DISHA MONTGOMERY Exam Date: 12/18/2021 : 1960 Age 61 Gender: F Physician: Alda Sandra Facility: [facility] Facility HSV: Outpatient Exam: CHEST 2 VIEWS TWO VIEW CHEST HISTORY: Shortness of breath COMPARISON: None FINDINGS: The cardiomedistinal silhouette is normal. The lungs are clear. No pneumothorax. The osseous structures are unremarkable. IMPRESSION: No acute process. Images reviewed, interpreted, and dictated by Dr. Trinity Puentes. Transcribed by Rickey Kurtz PA-C Dictated By: Trinity Rodriguez Transcribed By: Trinity Puentes Transcribed On: 12/18/2021 10:41 AM Electronically signed by: Trinity Rodriguez 12/18/2021 Thank you for referring DISHA MONTGOMERY to [facility]. Legally authenticated by JORGE ALCANTAR 2021-12-18 10:41:36 Procedure Note Provider, [facility] - 12/18/2021 [place] [address] Name: DISHA MONTGOMERY Exam Date: 12/18/2021 : 1960 Age 61 Gender: F Physician: Alda Sandra Facility: [facility] Facility HSV: Outpatient Exam: CHEST 2 VIEWS TWO VIEW CHEST HISTORY: Shortness of breath COMPARISON: None FINDINGS: The cardiomedistinal silhouette is normal. The lungs are clear.No pneumothorax. The osseous structures are unremarkable. IMPRESSION: No acute process. Images reviewed, interpreted, and dictated by Dr. Trinity Puentes. Transcribed by Rickey Kurtz PA-C Dictated By: Trinity Rodriguez Transcribed By: Trinity Puentes Transcribed On: 12/18/2021 10:41 AM Electronically signed by: Trinity Rodriguez 12/18/2021 Thank you for referring DISHA MONTGOMERY to [facility]. Legally authenticated by JORGE ALCANTAR 2021-12-18 10:41:36 us Alda Sandra MD IMG XR PROCEDURES Final Resul t documented in this [...] documented as of this encounter Care Teams Light Rail Train Operator Relationship Specialty Start Date End Date Alda Sandra MD [address] [place] [phone] PCP - General 03/13/21 Camryn Arzate LPN TCM Nurse 08/01/24 08/31/24 documented as of this encounter
--- OUTSIDE RECORDS SUMMARY | 2025-04-08 13:39 | XMS_ITS | Encounter Summary ---
Author Organization [facility] Address [address] [place] [address] Care Team Providers Care Business Architect Name Role Phone Alda Sandra MD Primary Care Provider [phone] Camryn Arzate LPN Unavailable Unavailable Encounter Details Date Type Department Care Team (Late st Contact Info) Description 05/26/2021 Outside Procedure External Location [address] [place] [address] Alda Sandra MD [address] [place] [address] Social History Tobacco Use Types Packs/Day [...] Description 04/15/2025 2:15 PM EDT Office Visit [facility] Medicine Specialties [address] [place] [address] Shanice Freedman APRN [address] [place] [address] 05/29/2025 9:30 AM EDT Procedure Visit [facility] Interventional Pain Medicine [address] [place] [address] German Espinosa MD [address] [place] [address] 07/18/2025 1:20 PM EDT Office Visit [facility] [place] [address], [address] [place] [address] Brandi Bermeo MD [address] [place] [address] documented as of this encounter Procedures Procedure Name Priority Date/Time Associated Diagnosis Comments MAMMOGRAPHY BREAST SCREENING TOMOSYNTHESIS BILATERAL 05/26/2021 11:12 AM EDT documented in this encounter Results * Mammography Breast Screening Tomosynthesis Bilateral (05/26/2021 11:12 AM EDT) Anatomical Region Laterality Modality Breast Bilateral Mammography 05/26/2021 11:1 2 AM EDT Narrative 05/26/2021 2:59 PM EDT [facility] [address] [place] [address] Name: DISHA MONTGOMERY Exam Date: 05/26/2021 : 1960 Age 61 Gender: F Physician: Alda Sandra Facility: [facility] Facility HSV: Outpatient Exam: ISELA SCRN MAMMO W/CAD BILAT Bilateral digital diagnostic screening mammogram with CAD and with breast tomosynthesis Findings: Comparison dates are 05/19/20 and 03/20/19. Tissue is partially dense and partially fatty. Stereotactic clips in the left breast is again seen. There are some benign-appearing calcium deposits bilaterally. There are no new or suspicious densities within either breast. There have been no significant changes. There are no areas of focal mammographic concern. Impression: BI-RADS 2, benign findings. Recommendation is for yearly follow-up mammography. This patient will be sent a letter from the mammography department with their mammography results. Dictated By: VENTURA CORTEZ Transcribed By: evelyn bonner Transcribed On: 05/26/2021 2:13 PM Electronically signed by: VENTURA CORTEZ 05/26/2021 Thank you for referring DISHA MONTGOMERY to [facility]. Legally authenticated by DIEGO WHITEHEAD 2021-05-26 14:46:12 Procedure Note Provider, [facility] - 05/26/2021 [place] [address] Name: DISHA MONTGOMERY Exam Date: 05/26/2021 : 1960 Age 61 Gender: F Physician: Alda Sandra Facility: [facility] Facility HSV: Outpatient Exam: ISELA SCRN MAMMO W/CAD BILAT Bilateral digital diagnostic screening mammogram with CAD and withbreast tomosynthesis Findings: Comparison dates are 05/19/20 and 03/20/19. Tissue is partiallydense and partially fatty. Stereotactic clips in the left breast is again seen. There are some benign-appearing calcium deposits bilaterally.There are no new or suspicious densities within either breast. There have beenno significant changes. There are no areas of focal mammographic concern. Impression: BI-RADS 2, benign findings. Recommendation is for yearly follow-up mammography. This patient will be sent a letter from the mammography department withtheir mammography results. Dictated By: VENTURA CORTEZ Transcribed By: evelyn bonner Transcribed On: 05/26/2021 2:13 PM Electronically signed by: VENTURA CORTEZ 05/26/2021 Thank you for referring DISHA MONTGOMERY to [facility]. Legally authenticated by DIEGO WHITEHEAD 2021-05-26 14:46:12 us Alda Sandra MD IMG BI PROCEDURES Final Resul t documented in this encounter Visit Diagnoses Not on filedocumented in this encounter Additional Health Concerns Infection Onset Date Last Indicated Resolved Time COVID-19 Rule-Out 04/01/2022 04/01/2022 04/01/2022 9:59 PM EDT COVID 19 (Confirmed) 04/01/2022 04/01/2022 022 5:23 AM EDT COVID-19 Rule-Out 11/01/2023 11/01/2023 documented as of this encounter Care Teams Business Architect Relationship Specialty Start Date End Date Alda Sandra MD [address] [place] [id number] PCP - General 03/13/21 Camryn Arzate LPN TCM Nurse 08/01/24 08/31/24 documented as of this encounter
--- OUTSIDE RECORDS SUMMARY | 2025-04-08 13:40 | XMS_ITS | Encounter Summary ---
Author Organization [facility] Address [address] [place] [address] Care Team Providers Care Drying Unit Felting Machine Operator Name Role Phone Alda Sandra MD Primary Care Provider [phone] Camryn Arzate LPN Unavailable Unavailable Encounter Details Date Type Department Care Team (Late st Contact Info) Description 06/22/2022 Outside Procedure External Location [address] [place] [address] Alda Sandra MD [address] [place] [address] Social History Tobacco Use Types Packs/Day Years Used Date Smoking Tobacco: Former Cigarettes 23 1 977 - 1999 Smokeless Tobacco: Never Alcohol Use Standard Drinks/Week Comments Yes 0 (1 standard drink = 0.6 oz pure alcohol) Alcoholic Drinks/day: Minimum alcohol consumption PHQ-2 Answer Date Recorded Patient Health Questionnaire-2 Score 0 06/24/2022 Comments Unknown Sex and Gender Information Value Date Recorded Sex Assigned at Female 12/18/2021 7:05 PM EST Legal Sex Female 7:53 PM EDT Gender Identity Female 12/18/2021 7:05 PM EST Sexual Orientation Straight 12/18/2021 7: 05 PM EST COVID-19 Exposure Response Date Recorded In the last 10 days, have yo u been in contact with someone who was confirmed or suspected to have Coronavirus/COVID-19? No / Unsure 06/24/2022 1:02 PM EDT documented as of this encounter Functional Status * Over the past 2 weeks, how often have you been bothered by any of the following problems? Question Answer Date of Assessment Author Little interest or pleasure in doing things Not at all 06/24/2022 1:19 PM EDT Maxine Tyler LPN Feeling down, depressed, or hopeless Not at all 06/24/2022 1:19 PM EDT Maxine Tyler LPN Patient Health Questionnaire-2 Score 0 06/24/2022 1:19 PM EDT Charles Tyler LPN * Calculated C-SSRS Risk Score (Lifetime/Recent) Answer Date of Assessment Author No Risk Indicated 06/24/2022 1:18 PM EDT Maxine Haney LPN * Question Answer Date of Assessment Author 1. Wish to be (Past 1 Month) No 022 1:18 PM EDT Maxine Tyler LPN 2. Non-Specific Active Suici jesus Thoughts (Past 1 Month) No 06/24/2022 1:18 PM EDT Umm Tyler LPN 6. Suicidal Behavior (Lifetime) No 1:18 PM EDT Maxine Tyler LPN documented as of this encounter Plan of Treatment Upcoming Encounters Date Type Department Care Team (Late st Contact Info) Description 04/15/2025 2:15 PM EDT Office Visit [facility] Medicine Specialties [address] [place] [address] Shanice Freedman, KEYSHA [address] [place] [address] 05/29/2025 9:30 AM EDT Procedure Visit [facility] Interventional Pain Medicine [address] [place] [address] German Espinosa MD [address] [facility] [address] [place] [address] 07/18/2025 1:20 PM EDT Office Visit [facility] [address], [address] [place] [address] Brandi Bermeo MD [address] [place] [address] documented as of this encounter Procedures Procedure Name Priority Date/Time Associated Diagnosis Comments MAMMOGRAPHY BREAST SCREENING TOMOSYNTHESIS BILATERAL 06/22/2022 2:14 PM EDT documented in this encounter Results * Mammography Breast Screening Tomosynthesis Bilateral (06/22/2022 2:14 PM EDT) Anatomical Region Laterality Modality Breast Bilateral Mammography 06/22/2022 2:14 PM EDT Narrative 06/22/2022 4:13 PM EDT [address] [address] Name: DISHA MONTGOMERY Exam Date: 06/22/2022 : 1960 Age 62 Gender: F Physician: Alda Sandra Facility: [facility] Facility HSV: Outpatient Exam: ISELA SCRN MAMMO W/CAD BILAT MAMMOGRAM SCREENING BILATERAL HISTORY: Routine screening exam COMPARISON: May 26, 2021 TECHNIQUE: Standard digital 2-D views with 3-D tomosynthesis DENSITY: There are scattered areas of fibroglandular density FINDINGS: Benign calcifications. Scattered areas of focal asymmetry are noted. No suspicious mass, suspicious calcifications or architectural distortion is present. IMPRESSION: No mammographic evidence of malignancy BI-RADS 2: Benign finding RECOMMENDATION: Annual mammography CAD was utilized during interpretation. The patient will be sent a letter from the mammography department with their mammography results. Dictated By: Trinity Rodriguez Transcribed By: Trinity Puentes Transcribed On: 06/22/2022 4:02 PM Electronically signed by: Trinity Rodriguez 06/22/2022 [facility]. Legally authenticated by JORGE ALCANTAR 2022-06-22 16:02:12 Procedure Note Provider, [facility] [place] - 06/22/[address] [address] Name: DISHA MONTGOMERY Exam Date: 06/22/2022 : 1960 Age 62 Gender: F Physician: Alda Sandra Facility: [facility] Facility HSV: Outpatient Exam: ISELA SCRN MAMMO W/CAD BILAT MAMMOGRAM SCREENING BILATERAL HISTORY: Routine screening exam COMPARISON: May 26, 2021 TECHNIQUE: Standard digital 2-D views with 3-D tomosynthesis DENSITY: There are scattered areas of fibroglandular density FINDINGS: Benign calcifications. Scattered areas of focal asymmetry arenoted. No suspicious mass, suspicious calcifications or architectural distortionis present. IMPRESSION: No mammographic evidence of malignancy BI-RADS 2: Benign finding RECOMMENDATION: Annual mammography CAD was utilized during interpretation. The patient will be sent a letter from the mammography department withtheir mammography results. Dictated By: Trinity Rodriguez Transcribed By: Trinity Puentes Transcribed On: 06/22/2022 4:02 PM Electronically signed by: Trinity Rodriguez 06/22/2022 Thank you for referring [facility]. Legally authenticated by JORGE ALCANTAR 2022-06-22 16:02:12 us Alda Sandra MD IMG BI PROCEDURES Final Resul t documented in this encounter Visit Diagnoses Not on filedocumented in this encounter Additional Health Concerns Infection Onset Date Last Indicated Resolved Time COVID-19 Rule-Out 11/01/2023 11/01/2023 Assessment Noted Time A fall risk assessment has been complete d for the patient 07/03/2021 1:05 PM EDT documented as of this encounter Care Teams Drying Unit Felting Machine Operator Relationship Specialty Start Date End Date Alda Sandra MD [address] [facility] [place] [address] PCP - General 03/13/21 Camryn Arzate LPN TCM Nurse 08/01/24 08/31/24 documented as of this encounter
--- OUTSIDE RECORDS SUMMARY | 2025-04-08 13:40 | XMS_ITS | Encounter Summary ---
Author Organization [facility] Address [address] [place] [address] Care Team Providers Care Consulting Sme Name Role Phone Alda Sandra MD Primary Care Provider [phone] Encounter Details Date Type Department Care Team (Late st Contact Info) Description 01/03/2025 Outside Procedure External Location [address] [place] [id number] Provider, [facility] [place] Social History Tobacco Use Types Packs/Day Years [...] 08/01/2024 How often do you attend chur ch or gnosticist services? 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 0 10/21/2024 CAGE Questionnaire Score 0 024 Utilities Answer Date Recorded In the past 12 months has th e [employer], gas, oil, or water company threatened to [...] Description 04/15/2025 2:15 PM EDT Office Visit [facility] Medicine Specialties [address] [place] [address] Shanice Freedman APRN [address] [place] [address] 05/29/2025 9:30 AM EDT Procedure Visit [facility] Interventional Pain Medicine [address] [place] [address] German Espinosa MD [address] [place] [address] 07/18/2025 1:20 PM EDT Office Visit [facility] [place] [address] [place] [address] Brandi Bermeo MD [address] [place] [address] documented as of this encounter Procedures Procedure Name Priority Date/Time Associated Diagnosis Comments MR THORACIC SPINE WO IV CONTRAST 01/03/2025 9:55 AM EST documented in this encounter Results * MR Thoracic Spine wo IV Contrast (01/03/2025 9:55 AM EST) Anatomical Region Laterality Modality T-spine Magnetic Resonan ce 01/03/2025 9:55 AM EST Narrative 01/03/2025 1:59 PM EST [facility] [address] [place] [address] Name: DISHA MONTGOMERY Exam Date: 01/03/2025 : 1960 Age 64 years Gender: F Physician: ANGI PUGH Facility: [facility] Facility HSV: Outpatient Exam: MRI THORACIC SPINE W/O EXAMINATION: MRI THORACIC SPINE WITHOUT CONTRAST Indication: muscle strain Technique: Multiple MRI sequences of the thoracic spine were obtained in the axial and sagittal orientations without intravenous contrast. Comparison: None. FINDINGS: The thoracic alignment is normal. The vertebral body heights are maintained. Multidetector 1 discogenic endplate signal change at T6-T7, T7-T8, T9-T10, T10-T11, and T11-T12. There is disc desiccation with tlcz-qj-crgrlidv disc narrowing and osteophytosis throughout the thoracic spine, portion T10-T12. Multilevel facet spondylosis. The thoracic cord is normal in signal. The paravertebral soft tissues are normal. Significant findings by level: T1-2: No central stenosis or foraminal stenosis. T2-3: No central stenosis or foraminal stenosis. T3-4: No central stenosis or foraminal stenosis. T4-5: No central stenosis or foraminal stenosis. T5-6: No central stenosis or foraminal stenosis. T6-7: No central stenosis or foraminal stenosis. T7-8: No central stenosis or foraminal stenosis. T8-9: No central stenosis or foraminal stenosis. T9-10: No central stenosis or foraminal stenosis. T10-11: No central stenosis or foraminal stenosis. T11-12: No central stenosis or foraminal stenosis. IMPRESSION: Wqed-bh-zgxyvscy multilevel spondylosis throughout the thoracic spine, most prominent from T10 to T12. No significant central stenosis or foraminal stenosis. Electronically signed by: Sam Jane MD 01/03/2025 01:55 PM [facility] Dictated By: Sam Jane Transcribed By: Transcribed On: 01/03/2025 1:14 PM Electronically signed by: Sam Jane 01/03/2025 Legally authenticated by JULIO GRAF 2025-01-03 13:14:00 Thank you for referring ERIC DISHA to [facility]. Legally authenticated by JULIO GRAF 2025-01-03 13:14:00 Procedure Note Provider, [facility] [place] - 01/03/[address] [address] Name: DISHA MONTGOMERY Exam Date: 01/03/2025 : 1960 Age 64 years Gender: F Physician: ANGI PUGH Facility: [facility] Facility HSV: Outpatient Exam: MRI THORACIC SPINE W/O EXAMINATION: MRI THORACIC SPINE WITHOUT CONTRAST Indication: muscle strain Technique: Multiple MRI sequences of the thoracic spine were obtained inthe axial and sagittal orientations without intravenous contrast. Comparison: None. FINDINGS: The thoracic alignment is normal. The vertebral body heights aremaintained. Multidetector 1 discogenic endplate signal change at T6-T7, T7-T8,T9-T10, T10-T11, and T11-T12. There is disc desiccation with ceer-hv-dqzllqxvnhgi narrowing and osteophytosis throughout the thoracic spine, [id number]. Multilevel facet spondylosis. The thoracic cord is normal in signal.The paravertebral soft tissues are normal. Significant findings by level: T1-2: No central stenosis or foraminal stenosis. T2-3: No central stenosis or foraminal stenosis. T3-4: No central stenosis or foraminal stenosis. T4-5: No central stenosis or foraminal stenosis. T5-6: No central stenosis or foraminal stenosis. T6-7: No central stenosis or foraminal stenosis. T7-8: No central stenosis or foraminal stenosis. T8-9: No central stenosis or foraminal stenosis. T9-10: No central stenosis or foraminal stenosis. T10-11: No central stenosis or foraminal stenosis. T11-12: No central stenosis or foraminal stenosis. IMPRESSION: Bgnw-dr-arwcnilb multilevel spondylosis throughout the thoracic spine,most prominent from T10 to T12. No significant central stenosis or foraminal stenosis. Electronically signed by: Sam Jane MD 01/03/2025 01:55 PM [facility] Dictated By: Sam Jane Transcribed By: Transcribed On: 01/03/2025 1:14 PM Electronically signed by: Sam Jane 01/03/2025 Legally authenticated by JULIO GRAF 2025-01-03 13:14:00 Thank you for referring DISHA MONTGOMERY to [facility]. Legally authenticated by JULIO GRAF 2025-01-03 13:14:00 us Generic [facility] Provider IMG MRI PROCEDURES F inal Result documented in this encounter Visit Diagnoses Not on filedocumented in this encounter Additional Health Concerns Infection Onset Date Last Indicated Resolved Time COVID-19 Rule-Out 11/01/2023 11/01/2023 Assessment Noted Time PHQ-9 Depression Total Score: 0 10/09/20 24 9:41 AM EST A fall risk assessment has been complete d for the patient 12/04/2024 7:48 AM EST A Body Mass Index follow-up plan has been documented for the patient 12/04/2024 1:42 PM EST documented as of this encounter Care Teams Consulting Sme Relationship Specialty Start Date End Date Alda Sandra MD [address] [place] [address] PCP - General 03/13/21 documented as of this encounter
--- OUTSIDE RECORDS SUMMARY | 2025-04-08 13:40 | XMS_ITS | Patient Health Record ---
Author Organization [facility] Billing Info Address [address] [place] [address] Support Name Relationship Address Phone Gem Montgomery Guarantor Unknown [phone] Allergies No Known Allergies Reason For Referral No Information Medications Medication SIG (Take, Route, Frequency, Duration) Notes Start Date End Date Status ProAir HFA 108 (90 Base) MCG/ACT 1 puff as needed Inhalation every 4 hrs Active CoQ-10 200 MG as directed Orally Active Saxenda 18 MG/3ML as directed Subcutaneous Active Dulera 200-5 MCG/ACT 2 puffs Inhalation Twice a day Active Vitamin E 100 UNIT as directed Orally Active Losartan Potassium 100 MG 1 tablet Orall y Once a day for 30 day(s) Active Vitamin D3 125 MCG (5000 UT) as directed Orally Active Metoprolol Tartrate 50 MG 1 tablet with food Orally Twice a day for 30 day(s) Active Magnesium 250 MG 1 tablet with a meal Orally Once a day for 30 day(s) Active Triamterene-HCTZ 37.5-25 MG 1 tablet in the morning Orally Once a day for 30 day(s) Active Diclofenac Potassium 50 MG 1 tablet with food or milk as needed Orally Twice a day Active Vitamin B12 100 MCG as directed Orally Active Levothyroxine Sodium 75 MCG 1 tablet in the morning on an empty stomach Orally Once a day for 30 day(s) Active Selenium 200 MCG 1 capsule Orally Onc e a day Active Omeprazole 20 MG 1 capsule 30 minutes before morning meal Orally Once a day for 30 day(s) Active Problems Problem Type SNOMED Code ICD Code Onset Dates Problem Status W/U Status Risk Notes Problem 59108018 Obstructive sleep apnea (G47.33) Active confirmed Problem 938565398 Morbid obesity (E66.01) Active confirmed Problem SVT (supraventricula r tachycardia) (I47.1) Active confirmed Problem 691941677 Aneurysm of ascending aorta without rupture (I71.21) Active confirmed Plan Of Treatment No Information Insurance Providers Payer Name Payer Address Payer Phone Subscriber Number Group Number Insured Name Patient Relationship to Insured Coverage Start Date Coverage End Date [employer] NON-HMO [address] [place], [place] [id number] Gem Montgomery Self - patient is the insured 3 Medical (General) History Medical History History ICD Code Hypertension I10 Thyroid disease E07.9 Asthma J45.909 Acid reflux K21.9 Ascending aortic aneurysm, unspecified w hether ruptured I71.21 SVT (supraventricular tachycardia) I47.1 Surgical History Surgery Date(Month/Year) lumbar fusion hysterectomy
--- OUTSIDE RECORDS SUMMARY | 2025-04-08 13:40 | XMS_ITS | Continuity of Care Document ---
Author Organization [facility] & [facility] Address [address] [place] [address] Care Team Providers Care Seismograph Observer Name Role Phone TRISTEN GONZALZE Primary Care Provider [phone] Assessment No assessment recorded. Plan of Treatment Reminders Order Date Submit Date Provider Last Modified By Organization Details Last Modified Time Details Appointments MEDICAL WEIGHT LOSS FOLLOW UP 2024 08:30A M Junaid Villalpando, DNP, SAND TESTER, PARALEGAL SPECIALIST-C Not available Not available Not available Lab None recorded. Referral None recorded. Procedures None recorded. Surgeries None recorded. Imaging None recorded. Medication Orders Wegovy 2.4 mg/0.75 mL subcutane ous pen injector [address] [place] [address] Pharmacy [id number], [address], [place], [address], 02/08/2025 09:14:43 Patient TargetsNo targets recorded. Patient InstructionsNo instructions recorded. Reason for Referral None Reported. Problems Name Problem SNOMED Code Status Onset Date Resolution Date Notes Provider Name and Address Organization Details Recorded Time Morbid obesity 819781056 Active [address]AN[address], [address] [place], [address] , [facility] & [place] 22:00:11 Body mass index 40+ - severely obese 099265153 Active HANNAH [address], [address] [place], [address] , [facility] & [place] 2 22:00:11 Weight loss 74647722 Active HANNAH [address]ONT[address]VO [address], LD [address] [facility], [place], [place], [address] [place] [address] , [place] - [facility] - [place] & [place] 2 22:00:11 Weight gain 6199192 Active HANNAH MONTALVO [address], LD [address] [facility], [place], [address] [place] [address] , [place] - [facility] - [place] & [place] 2 22:00:11 Obese 715946760 Active HANNAH MONTALVO [address], LD [address] [facility], [place], [place], [address] [place] [address] , [place] - [facility] - [place] & [place] 2 22:00:11 Essential hypertension 86147667 Active 2022 Junaid Villalpando DNP, SAND TESTER, PARALEGAL SPECIALIST-C [address] [facility], [place], [place], [address] [place] [address] , [place] - [facility] - [place] & [place] 3 09:39:03 Hypothyroidis m 40106103 Active 2022 Junaid Villalpando DNP, SAND TESTER, PARALEGAL SPECIALIST-C [address] [facility], [place], [address] [place] [address] , [place] - [facility] - [place] & [place] 3 09:39:10 Nausea 751892776 Active 2023 Junaid Villalpando DNP, SAND TESTER, PARALEGAL SPECIALIST-C [address] [facility], [place], [place], [address] [place] [address] , [place] - [facility] - [place] & [place] 4 09:57:29 Problem Notes None recorded. Procedures Surgical History Date Name Laterality Status Provider Name and Address Organization Details Recorded Time nerve block completed Radha Sewell [place] - [facility] & [place] 5 09:01:55 Hysterectomy completed Cecile Sifuentes [place] - [facility] & [place] 2 12:59:53 lumbar spinal fusion completed Linda Sifuentes [place] - [facility] & [place] 2 13:00:16 colonoscopy completed Cecile WILSON [facility] & [place] 2 13:00:37 esophagogastroduodenoscopy completed Cecile WILSON [facility] & [place] 2 13:00:42 Arthroscopic Surgery completed Linda WILSON [facility] & [place] 2 13:01:17 Imaging Results None recorded. Procedure Notes None recorded. Medical Equipment None Reported. Allergies Allergen ID Allergen Name Allergen Category Reaction Reaction Severity Criticality Documentation Date Start Date Code Code System Note Provider Name and Address Organization Details Recorded Time 828340 acetamino phen / oxycodone medicatio n Not available Not available Not available 11/09/2024 44531 3 RxNorm MARCIA Gomes [facility] & [place] 5 11:54:09 390498 simvastat in medicatio n Not available Not available Not available 11/09/2024 57230 [facility] [place] 5 11:54:21 Medications Name Sig Start Date [...] cm 96.9 [degF] 77 /min 37.5 kg/m2 662496 g 153 mm[Hg] 89 mm[Hg] Radha Melodie [facility] - [place] & [place] 5 09:02:13 Social History None recorded. Functional Status Question Answer Note LastModified by Organizat ion Details LastModified Time Do you use any illicit or recreational drugs? No [email or web address] Information not available 08/06/2022 What is your level of alcohol consumption? Occasional [email or web address] Information not available 08/06/2022 Mental Status None [...] Problems Y Polyps Y Thyroid Problems Y Asthma Y Hypothyroidism Y Constipation Y Reflux/GERD Y High Cholesterol Y Hypertension Y Chicken Pox Y Gynecological HistoryNo gynecological history recorded. Obstetrics History GPAL:G 0 P 0 0 0 0 Immunizations Vaccine Type Date Status Note Provider Nam e and Address Organization Details Recorded Time influenza, unspecified formulation 3 completed Radha montanez, [place] - [facility] - [place] & [place] 10/28/2023 13:32:06 influenza, unspecified formulation 4 completed Radha montanez, [place] [facility] [place] & [place] 11/09/2024 11:56:27 Influenza, split virus, trivalent, PF [address], [address], [place], [address], [place] - [facility] - [place] & [place] 08/01/2022 22:00:23 Past Encounters Encounter ID Performer Location Encounter Start Date Encounter Closed Date Diagnosis/Indication Diagnosis SNOMED-CT Code Diagnosis ICD10 Code Diagnosis Note [id number] Junaid Villalpando, DNP, SAND TESTER, PARALEGAL SPECIALIST-C [facility] [address] [place] [id number] 02/08/2025 08:52:06 02/08/2025 09:23:51 Morbid obesity 350372439 E66.01 Patient was reassured on today's visit. [...] dietitian visit, but pt declines. Essential hypertension 58912315 I10 Hypothyroidism 61526046 E03.9 Health Concerns Section Related Observation LastModified by Organization Detai ls LastModified Time None Recorded Concern Status LastModified by Organization Details LastModified Time None Recorded Payers Encounter Date Sequence Insurance Name Policy Number Policy Elizalde Covered Member ID Elizalde Member ID Guarantor Name 02/08/2025 2 [place] [id number] R Jamal Montgomery [id number] Gem Montgomery 02/08/2025 1 [place] Gem Montgomery [id number] Gem Montgomery Notes Date Note Type Note Provider Name and Address Organization Details Recorded Time 02/08/2025 text/html Patient presents the office today [...] She is getting ready to go to [place] in February. Today's InBody reveals a skeletal muscle mass of 61.7 lb, body fat mass 111.7 lb, BMI of 37.5, % body fat 49.6, basal metabolic rate of 1483 kilo calories Junaid Villalpando, DNP, SAND TESTER, PARALEGAL SPECIALIST-C [address], [place], [address], [facility] - [place] & [place] 02/08/2025 11:25:57 OBGyn Episode No OBEpisode recorded.
--- OUTSIDE RECORDS SUMMARY | 2025-04-08 13:40 | XMS_ITS | Encounter Summary ---
Author Organization [facility] Address [address] [place] [address] Care Team Providers Care Frame Polisher Name Role Phone Alda Sandra MD Primary Care Provider [phone] Encounter Details Date Type Department Care Team (Late st Contact Info) Description 01/03/2025 Outside Procedure External Location [address] [place] [id number] Provider, Abelardo Quinton Social History Tobacco Use Types Packs/Day Years [...] often do you attend chur ch or sikh services? More than 4 times per year 08/01/2024 Do you belong to any clubs o r organizations such as anglican groups, unions, fraternal or athletic groups, or [...] Recorded Patient Health Questionnaire-2 Score 0 10/09/2024 [facility] - Occupational Stress [...] place to sleep or slept in a chcf (including now)? 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 0 10/21/2024 CAGE Questionnaire Score 0 024 Utilities Answer Date Recorded In the past 12 months has th e Consult A Doctor, gas, oil, or water company threatened to [...] Description 04/15/2025 2:15 PM EDT Office Visit [facility] [address] [place] [address] Shanice Freedman APRN [address] [place] [address] 05/29/2025 9:30 AM EDT Procedure Visit [facility] [address] [place] [address] German Espinosa MD [address] [place] [address] 07/18/2025 1:20 PM EDT Office Visit [facility] [address] [place] [address] Brandi Bermeo MD [address] [place] [address] documented as of this encounter Procedures Procedure Name Priority Date/Time Associated Diagnosis Comments MR LUMBAR SPINE WO IV CONTRAST 01/03/2025 9:56 AM EST documented in this encounter Results * MR Lumbar Spine wo IV Contrast (01/03/2025 9:56 AM EST) Anatomical Region Laterality Modality L-spine Magnetic Resonan ce 01/03/2025 9:56 AM EST Narrative 01/03/2025 2:02 PM EST [facility] [address] [place] [address] Name: DISHA MONTGOMERY Exam Date: 01/03/2025 : 1960 Age 64 years Gender: F Physician: ANGI PUGH Facility: [facility] Facility HSV: Outpatient Exam: MRI LUMBAR SPINE W/O EXAMINATION: MRI LUMBAR WITHOUT CONTRAST INDICATION: muscle strain Technique: Multiple MRI sequences of the lumbar spine were obtained without intravenous contrast in the axial and sagittal orientations. Comparison: X-ray, 07/11/2023. FINDINGS: There is posterior paraspinal hardware from L4 to L5 with laminectomies. There is associated scar tissue. Increased T2 signal is seen in the posterior soft tissues at the laminectomy site. Interbody spacers at L4-L5 and L5-S1. The verebral body heights are maintained. The vertebral body alignment is normal. The bone marrow signal is normal. Disc desiccation with mild disc narrowing from T12 to L4. Multilevel facet spondylosis. The conus terminates at the level of L2. Normal signal in the conus and cauda equina nerve roots. There are bilateral peripelvic cysts. EVALUATION OF THE INDIVIDUAL LEVELS: L1-L2: Diffuse annular bulge. No central stenosis. The foramina are patent. L2-L3: Posterior disc bulge. No central stenosis. The foramina are patent. L3-L4: Diffuse bulge. No central stenosis. Mild bilateral foraminal stenosis. L4-L5: No central stenosis. Mild bilateral foraminal stenosis. L5-S1: No central stenosis. Mild bilateral foraminal stenosis. IMPRESSION: 1. Posterior paraspinal hardware from L4 to L5 with laminectomies. Increased T2 signal in the posterior soft tissues at the laminectomy site may represent scar tissue although muscle strain may have a similar appearance. Clinical correlation is recommended. 2. Multilevel mild degenerative disc disease from T12 to L4. Multilevel facet spondylosis. 3. Mild bilateral foraminal stenosis from L3 to S1. Electronically signed by: Sam Jane MD 01/03/2025 01:58 PM [facility] Dictated By: Sam Jane Transcribed By: Transcribed On: 01/03/2025 1:15 PM Electronically signed by: Sam Jane 01/03/2025 Thank you for referring DISHA MONTGOMERY to [facility]. Legally authenticated by JULIO GRAF 2025-01-03 13:15:00 Procedure Note Provider, Generic Quinton - 01/03/[address] [place] [address] Name: DISHA MONTGOMERY Exam Date: 01/03/2025 : 1960 Age 64 years Gender: F Physician: ANGI PUGH Facility: [facility] Facility HSV: Outpatient Exam: MRI LUMBAR SPINE W/O EXAMINATION: MRI LUMBAR WITHOUT CONTRAST INDICATION: muscle strain Technique: Multiple MRI sequences of the lumbar spine were obtainedwithout intravenous contrast in the axial and sagittal orientations. Comparison: X-ray, 07/11/2023. FINDINGS: There is posterior paraspinal hardware from L4 to L5 with laminectomies.There is associated scar tissue. Increased T2 signal is seen in the posteriorsoft tissues at the laminectomy site. Interbody spacers at L4-L5 and L5-S1.The verebral body heights are maintained. The vertebral body alignment isnormal. The bone marrow signal is normal. Disc desiccation with mild discnarrowing from T12 to L4. Multilevel facet spondylosis. The conus terminates atthe level of L2. Normal signal in the conus and cauda equina nerve roots.There are bilateral peripelvic cysts. EVALUATION OF THE INDIVIDUAL LEVELS: L1-L2: Diffuse annular bulge. No central stenosis. The foramina arepatent. L2-L3: Posterior disc bulge. No central stenosis. The foramina arepatent. L3-L4: Diffuse bulge. No central stenosis. Mild bilateral foraminalstenosis. L4-L5: No central stenosis. Mild bilateral foraminal stenosis. L5-S1: No central stenosis. Mild bilateral foraminal stenosis. IMPRESSION: 1. Posterior paraspinal hardware from L4 to L5 with laminectomies.Increased T2 signal in the posterior soft tissues at the laminectomy site mayrepresent scar tissue although muscle strain may have a similar appearance.Clinical correlation is recommended. 2. Multilevel mild degenerative disc disease from T12 to L4. Multilevelfacet spondylosis. 3. Mild bilateral foraminal stenosis from L3 to S1. Electronically signed by: Sam Jane MD 01/03/2025 01:58 PM [facility] Dictated By: Sam Jane Transcribed By: Transcribed On: 01/03/2025 1:15 PM Electronically signed by: Sam Jane 01/03/2025 Thank you for referring DISHA MONTGOMERY to [facility]. Legally authenticated by JULIO GRAF 2025-01-03 13:15:00 us Generic Quinton Provider IMG MRI PROCEDURES F inal Result [...] documented as of this encounter Care Teams Frame Polisher Relationship Specialty Start Date End Date Alda Sandra MD [address] [place] [address] PCP - General 03/13/21 documented as of this encounter
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
--- OUTSIDE RECORDS SUMMARY | 2025-04-08 13:40 | XMS_ITS | Encounter Summary ---
Author Organization [facility] Address [address] [place] [address] Care Team Providers Care Tank Setter Name Role Phone Alda Sandra MD Primary Care Provider [phone] Encounter Details Date Type Department Care Team (Latest Contact Info) Description 02/22/2025 Travel Social History Tobacco Use Types Packs/Day Years [...] often do you attend chur ch or spiritism services? More than 4 times per year 08/01/2024 Do you belong to any clubs o r organizations such as religious groups, unions, fraternal or athletic groups, or [...] Recorded Patient Health Questionnaire-2 Score 0 02/22/2025 [facility] - Occupational Stress Questionnaire Answer Date Recorded [...] place to sleep or slept in a care home (including now)? No 08/01/2024 PHQ-9 Answer Date [...] any time in the past 12 m [facility], were you homeless or living in a care home (including now)? No 02/22/2025 CAGE ASSESSMENT Answer [...] drink first t jeni in the morning (EYE-PRODUCT EXPERT) to steady your nerves or to get rid of a hangover? 0 10/21/2024 CAGE Questionnaire Score 0 024 Utilities Answer Date Recorded In the past 12 months has e [employer], gas, oil, or water company threatened to [...] Industry Job Start Date Job End Date matias Knapp Not on file Not on file Not [...] little energy Not at all 8:00 AM EDT Jennifer Floyd Poor appetite or overeating Not at all 02/22/2025 8: 00 AM EDT Jennifer Floyd Feeling bad about yourself - or that you are a failure or have let yourself or your family down Not at all 02/22/2025 8:00 AM EDT Arin Floyd Trouble concentrating on thi ngs, such as reading the newspaper or watching television Not at all 02/22/2025 8:00 AM EDJennifer Chatterjee Moving or speaking so slowly that other people could have noticed? Or the opposite - being so fidgety or restless that you have been moving around a lot more than usual. Not at all 02/22/2025 8:00 AM EDT Dane Floyd Thoughts that you would be b poly off or hurting yourself in some way Not at all 02/22/2025 8:00 AM EDT Jennifer Floyd Patient Health Questionnaire-9 Score 0 01/30 8:00 AM EDT Jennifer Floyd * Calculated C-SSRS Risk Score (Lifetime/Recent) Answer Date of Assessment Author No Risk Indicated 02/22/2025 8:00 AM EDT Dane Floyd * If you checked off any problems on this questionnaire so far, Question Answer Date of Assessment Author How difficult have these problems made it for you to do your work, take care of things at home, or get along with other people? Not difficult at all 02/22/2025 8:00 AM EDT Jennifer Floyd * Question Answer Date of Assessment Author 1. Wish to be (Past 1 Month) No 025 8:00 AM EDT Jennifer Floyd 2. Non-Specific Active Suici jesus Thoughts (Past 1 Month) No 02/22/2025 8:00 AM EDT Jennifer Floyd 6. Suicidal Behavior (Lifetime) No 8:00 AM EDT Jennifer Floyd documented as of this encounter Plan of Treatment Upcoming Encounters Date Type Department Care Team (Late st Contact Info) Description 04/15/2025 2:15 PM EDT Office Visit [facility] Medicine Specialties [address] [place] [address] Shanice Freedman, BULBS FARMWORKER [address] [place] [address] 05/29/2025 9:30 AM EDT Procedure Visit [facility] Interventional Pain Medicine [address] [facility] [place] [address] German Espinosa MD [address] [facility] [address] [place] [address] 07/18/2025 1:20 PM EDT Office Visit [facility] [place] [facility] [address], [address] [place] [address] Brandi Bermeo MD [address] [place] [address] documented as of this encounter Visit Diagnoses Not on filedocumented [...] documented as of this encounter Care Teams Tank Setter Relationship Specialty Start Date End Date Alda Sandra MD [address] [place] [address] PCP - General 03/13/21 documented as of this encounter
--- OUTSIDE RECORDS SUMMARY | 2025-04-08 13:40 | XMS_ITS | Encounter Summary ---
Author Organization [facility] Address [address] [place] [address] Care Team Providers Care [place] Manager Name Role Phone Alda Sandra MD Primary Care Provider [phone] Encounter Details Date Type Department Care Team (Late st Contact Info) Description 02/06/2025 Orders Only External Location [address] [place] [phone] Provider, External Social History Tobacco Use Types Packs/Day Years [...] often do you attend chur ch or hindu services? More than 4 times per year 08/01/2024 Do you belong to any clubs o r organizations such as nondenominational groups, unions, fraternal or athletic groups, or [...] Recorded Patient Health Questionnaire-2 Score 0 10/09/2024 [facility] Occupational Stress Questionnaire Answer [...] place to sleep or slept in a halfway (including now)? No 08/01/2024 PHQ-9 Answer Date [...] drink first t jeni in the morning (EYE-JUNIOR PARALEGAL) to steady your nerves or to get [...] Description 04/15/2025 2:15 PM EDT Office Visit [facility] Specialties [address] [place] [address] Shanice Freedman, KEYSHA [address] [place] [address] 05/29/2025 9:30 AM EDT Procedure Visit [facility] Interventional Pain Medicine [address] [place] [address] German Espinosa MD [address] [facility] [address] [place] [address] 07/18/2025 1:20 PM EDT Office Visit [facility] [address], [address] [place] [address] Brandi Bermeo MD [address] [place] [address] documented as of this encounter Procedures Procedure Name Priority Date/Time Associated Diagnosis Comments POC ULTRASOUND 02/06/2025 documented in this encounter Results * POC Imaging (02/06/2025) Anatomical Region Laterality Modality Pelvis Other 02/06/2025 us External Provider IMG POINT OF CARE ULTRASOUND F inal Result documented in this encounter [...] plan has been documented for the patient 02/06/2025 4:00 PM EDT documented as of this encounter Care Teams [place] Manager Relationship Specialty Start Date End Date Alda Sandra MD [address] [place] [address] PCP - General 03/13/21 documented as of this encounter
--- OUTSIDE RECORDS SUMMARY | 2025-04-08 13:41 | XMS_ITS | Encounter Summary ---
Author Organization [facility] Address [address] [place] [address] Care Team Providers Care Kindergarten Teacher Assistant Name Role Phone Alda Sandra MD Primary Care Provider [phone] Camryn Arzate LPN Unavailable Unavailable Encounter Details Date Type Department Care Team (Late st Contact Info) Description 07/11/2023 Outside Procedure External Location [address] [place] [address] Alda Sandra MD [address] [place] [address] Social History Tobacco Use Types Packs/Day Years Used Date Smoking Tobacco: Former Cigarettes 1 25 1 977 - 2000 Smokeless Tobacco: Never Alcohol Use Standard Drinks/Week [...] Description 04/15/2025 2:15 PM EDT Office Visit [facility] Medicine Specialties [address] [place] [address] Shanice Freedman, ENVIRONMENTAL STUDIES DEPARTMENT CHAIR [address] [place] [address] 05/29/2025 9:30 AM EDT Procedure Visit [facility] Interventional Pain Medicine [address] [place] [address] German Espinosa MD [address] [place] [address] 07/18/2025 1:20 PM EDT Office Visit [facility] [place] [address], [address] [place] [address] Brandi Bermeo MD [address] [place] [address] documented as of this encounter Procedures Procedure Name Priority Date/Time Associated Diagnosis Comments XR HIP RIGHT 2 OR 3 VIEWS 07/11/2023 11:20 AM EDT documented in this encounter Results * XR Hip Right 2 or 3 Views (07/11/2023 11:20 AM EDT) Anatomical Region Laterality Modality Lower Extremities, Hip Right Digital R adiography 07/11/2023 11:2 0 AM EDT Narrative 07/11/2023 12:45 PM EDT [facility] [address] [place] [address] Name: DISHA MONTGOMERY Exam Date: 07/11/2023 : 1960 Age 63 Gender: F Physician: Alda Sandra Facility: [facility] Facility HSV: Outpatient Exam: HIP 2 VIEW RT RIGHT HIP CLINICAL HISTORY: Hip pain. FINDINGS:The AP view of the pelvis shows no bony abnormality. Postoperative changes of the lumbar spine are noted. The hip joint space is mildly narrowed on the right. The sacroiliac joints are patent. Soft tissues are unremarkable. IMPRESSION: Minimal degenerative change. Films reviewed , interpreted and dictated by Transcribed by Dat De Paz PA-C. Dictated By: CHRISSIE TOPETE Transcribed By: Chrissie Topete Transcribed On: 07/11/2023 12:34 PM Electronically signed by: CHRISSIE TOPETE 07/11/2023 Thank you for referring DISHA MONTGOMERY to [facility]. Legally authenticated by POPE CHRISSIE Urbano 2023-07-11 12:34:15 Procedure Note Provider, [facility] [place] - 07/11/2023 [place] [address] Name: DISHA MONTGOMERY Exam Date: 07/11/2023 : 1960 Age 63 Gender: F Physician: Alda Sandra Facility: [facility] Facility HSV: Outpatient Exam: HIP 2 VIEW RT RIGHT HIP CLINICAL HISTORY: Hip pain. FINDINGS:The AP view of the pelvis shows no bony abnormality.Postoperative changes of the lumbar spine are noted. The hip joint space is mildlynarrowed on the right. The sacroiliac joints are patent. Soft tissues areunremarkable. IMPRESSION: Minimal degenerative change. Films reviewed , interpreted and dictated by Transcribed by Dat De Paz PA-C. Dictated By: CHRISSIE TOPETE Transcribed By: Chrissie Topete Transcribed On: 07/11/2023 12:34 PM Electronically signed by: CHRISSIE TOPETE 07/11/2023 Thank you for referring DISHA MONTGOMERY to [facility]. Legally authenticated by POPE CHRISSIE Urbano 2023-07-11 12:34:15 us Alda Sandra MD IMG XR PROCEDURES [...] documented as of this encounter Care Teams Kindergarten Teacher Assistant Relationship Specialty Start Date End Date Alda Sandra MD [address] [place] [phone] PCP - General 03/13/21 Camryn Arzate LPN TCM Nurse 08/01/24 08/31/24 documented as of this encounter
--- OUTSIDE RECORDS SUMMARY | 2025-04-08 13:41 | XMS_ITS | Encounter Summary ---
Author Organization [facility] Address [address] [place] [address] Care Team Providers Care Cafeteria Cook Name Role Phone Alda Sandra MD Primary Care Provider [phone] Reason for Visit * Reason Comments Med Refill Encounter Details Date Type Department Care Team (Late st Contact Info) Description 02/23/2025 Refill [facility] Medicine [address] [place] [address] Alda Sandra MD [address] [place] [address] Social History Tobacco Use Types [...] How often do you attend chur or amish services? 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 documented in this encounter Plan of Treatment Upcoming Encounters Date Type Department Care Team (Late st Contact Info) Description 04/15/2025 2:15 PM EDT Office Visit [facility] Medicine Specialties [address] [place] [address] Shanice Freedman, KEYSHA [address] [place] [address] 05/29/2025 9:30 AM EDT Procedure Visit [facility] Interventional Pain Medicine [address] [facility] [address] German Espinosa MD [address] [place] [address] 07/18/2025 1:20 PM EDT Office Visit [facility] [place] [address], [address] [place] [address] Brandi Bermeo MD [address] [place] [address] documented as of this encounter Visit Diagnoses [...] documented as of this encounter Care Teams Cafeteria Cook Relationship Specialty Start Date End Date Alda Sandra MD [address] [place] [address] PCP - General 03/13/21 documented as of this encounter
--- OUTSIDE RECORDS SUMMARY | 2025-04-08 13:41 | XMS_ITS | Encounter Summary ---
Author Organization [facility] Address [address] [place] [address] Care Team Providers Care Etl Database Developer Name Role Phone Alda Sandra MD Primary Care Provider [phone] Reason for Visit * Reason Onset Date Comments HCN Clinical Concern/Question 04/01/2025 Encounter Details Date Type Department Care Team (Late st Contact Info) Description 04/01/2025 Telephone [facility] Medicine [address] [place] [address] Alda Sandra MD [address] [place] [address] HCN Clinical Concern/Question Social History Tobacco Use Types Packs/Day Years [...] any clubs o r organizations such as pentecostalism groups, unions, fraternal or athletic groups, or school groups? Yes 08/01/2024 How often do you attend meet ings of the clubs or organizations you belong to? More than 4 times per year 08/01/2024 Are you , , di vorced, , never , or living with a partner? 08/01/2024 PHQ-2 Answer Date Recorded Patient Health Questionnaire-2 Score 0 03/18/2025 [facility] - Occupational Stress Questionnaire [...] place to sleep or slept in a retirement (including now)? No 08/01/2024 PHQ-9 Answer Date [...] any time in the past 12 m [facility], were you homeless or living in a retirement (including now)? 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 * Telephone Encounter - July Madera - 04/01/2025 12:44 PM EDT Faxed to [facility] Central Scheduling * Telephone Encounter - Bell Qureshi - 04/01/2025 10:16 AM EDT Clinical Concern/Question Reason for Call: pts order for bone density scan was sent to [facility] but she asks if it could be faxed to [facility] in [place]. Please call to rakeleToni bass Best contact number: [phone] (home) Optimal time of day to reach caller: ANYTIME Additional comments/information from caller: None Note: Please do not reply to this message. Follow-up communication and further actions as a result of this message need to be communicated with the patient directly, if the patient is not active onMyChart. If the patient is active on MyChart, they will receive notification of the communication/outcome via [employer]. documented in this encounter Plan of Treatment Upcoming Encounters Date Type Department Care Team (Late st Contact Info) Description 04/15/2025 2:15 PM EDT Office Visit [facility] Medicine Specialties [address] [place] [address] Shanice Freedman, TAX COMPLIANCE REPRESENTATIVE [address] [place] [address] 05/29/2025 9:30 AM EDT Procedure Visit [facility] Interventional Pain Medicine [address] [facility] [place] [address] German Espinosa MD [address] [facility] [address] [place] [address] 07/18/2025 1:20 PM EDT Office Visit [facility] [place] [address], [address] [place] [address] Brandi Bermeo MD [address] [place] [address] documented as of this encounter [...] documented as of this encounter Care Teams Etl Database Developer Relationship Specialty Start Date End Date Alda Sandra MD [address] [place] [id number] PCP - General 03/13/21 documented as of this encounter
--- OUTSIDE RECORDS SUMMARY | 2025-04-08 13:41 | XMS_ITS | Encounter Summary ---
Author Organization [facility] Address [address] [place] [address] Care Team Providers Care Fashion Consultant Name Role Phone Alda Sandra MD Primary Care Provider [phone] Camryn Arzate LPN Unavailable Unavailable Encounter Details Date Type Department Care Team (Late st Contact Info) Description 07/11/2023 Outside Procedure External Location [address] [place] [address] Alda Sandra MD [address] [place] [address] Social History Tobacco Use Types Packs/Day [...] Description 04/15/2025 2:15 PM EDT Office Visit [facility] Specialties [address] [place] [address] Shanice Freedman, SENIOR DRUPAL DEVELOPER [address] [place] [address] 05/29/2025 9:30 AM EDT Procedure Visit [facility] Interventional Pain Medicine [address] [place] [address] German Espinosa MD [address] [place] [address] 07/18/2025 1:20 PM EDT Office Visit [facility] [place] [address] [place] [address] Brandi Bermeo MD [address] [place] [address] documented as of this encounter Procedures Procedure Name Priority Date/Time Associated Diagnosis Comments MAMMOGRAPHY BREAST SCREENING TOMOSYNTHESIS BILATERAL 07/11/2023 11:20 AM EDT documented in this encounter Results * Mammography Breast Screening Tomosynthesis Bilateral (07/11/2023 11:20 AM EDT) Anatomical Region Laterality Modality Breast Bilateral Mammography 07/11/2023 11:2 0 AM EDT Narrative 07/11/2023 1:17 PM EDT [address] [place] [address] Name: DISHA MONTGOMERY Exam Date: 07/11/2023 : 1960 Age 63 Gender: F Physician: Alda Sandra Facility: [facility] Facility HSV: Outpatient Exam: ISELA SCRN MAMMO W/CAD BILAT MAMMOGRAM SCREENING BILATERAL WITH TOMOSYNTHESIS HISTORY: Routine screening exam COMPARISON: June 22, 2022 FINDINGS: Standard views were obtained. There are scattered fibroglandular densities. Benign-appearing calcifications are present. Stable asymmetric densities noted. 2 biopsy clips seen in the left breast. No mass, suspicious calcifications or architectural distortion is present. IMPRESSION: No mammographic evidence of malignancy. BI-RADS 2: Benign RECOMMENDATION: Annual mammography CAD was utilized during interpretation. The patient will be sent a letter from the mammography department with their mammography findings. Dictated By: CHRISSIE TOPETE Transcribed By: Chrissie Topete Transcribed On: 07/11/2023 1:06 PM Electronically signed by: CHRISSIE TOPETE 07/11/2023 Thank you for referring DISHA MONTGOMERY to [facility]. Legally authenticated by POPE CHRISSIE Urbano 2023-07-11 13:06:24 Procedure Note Provider, Generic [place] - 07/11/2023 [place] [address] Name: DISHA MONTGOMERY Exam Date: 07/11/2023 : 1960 Age 63 Gender: F Physician: Alda Sandra Facility: [facility] Facility HSV: Outpatient Exam: ISELA SCRN MAMMO W/CAD BILAT MAMMOGRAM SCREENING BILATERAL WITH TOMOSYNTHESIS HISTORY: Routine screening exam COMPARISON: June 22, 2022 FINDINGS: Standard views were obtained. There are scatteredfibroglandular densities. Benign-appearing calcifications are present. Stableasymmetric densities noted. 2 biopsy clips seen in the left breast. No mass,suspicious calcifications or architectural distortion is present. IMPRESSION: No mammographic evidence of malignancy. BI-RADS 2: Benign RECOMMENDATION: Annual mammography CAD was utilized during interpretation. The patient will be sent a letter from the mammography department withtheir mammography findings. Dictated By: CHRISSIE TOPETE Transcribed By: Chrissie Topete Transcribed On: 07/11/2023 1:06 PM Electronically signed by: CHRISSIE TOPETE 07/11/2023 Thank you for referring DISHA MONTGOMERY to [facility]. Legally authenticated by POPE CHRISSIE Urbano 2023-07-11 13:06:24 us Alda Sandra MD IMG BI PROCEDURES [...] documented as of this encounter Care Teams Fashion Consultant Relationship Specialty Start Date End Date Alda Sandra MD [address] [place] [address] PCP - General 03/13/21 Camryn Arzate LPN TCM Nurse 08/01/24 08/31/24 documented as of this encounter
--- OUTSIDE RECORDS SUMMARY | 2025-04-08 13:41 | XMS_ITS | Clinical Summary ---
Author Organization [facility] Address [address] [place] [address] Care Team Providers Care Parts Interpreter Name Role Phone Alda Sandra MD Primary Care Provider [phone] Allergies Active Allergy Reactions Criticality Noted Date Comments Atorvastatin Other - please document in the comment field Low 07/26/2024 Muscle cramps Oxycodone-Acetaminophen Rash Low 11/05/2022 Medications B Complex Vitamins (B Complex-B12) tablet 1 (one) time each day. Active cholecalciferol (Vitamin D3) 1.25 MG (68992 UT) capsule 1 (one) time each day. Active coenzyme Q-10 200 MG capsule 1 (one) time each day. Active alpha tocopherol (Vitamin E) 100 units capsule 1 (one) time each day. Active Semaglutide-Weigh t Management (Wegovy) 2.4 MG/0.75ML solution auto-injector Inject 2.4 mg under the skin. Active Selenium 200 MCG capsule Take 200 mcg by mouth 1 (one) time each day. 30 capsule 07/08/20 23 Active magnesium, as gluconate, (Magonate) 500 (27 Mg) MG tablet Take 1 tablet (500 mg) by mouth 2 (two) times a day. Active diclofenac (Voltaren) 75 MG EC tablet TAKE 1 TABLET BY MOUTH TWICE DAILY DO NOT CRUSH ,CHEW OR SPLIT 180 tablet 2 07/01/20 24 Active metoprolol succinate XL (Toprol-XL) 100 MG 24 hr tablet Take 1 tablet (100 mg) by mouth 1 (one) time each day. Do not crush or chew. 90 tablet 3 07/12/20 24 2024 Active fexofenadine (Diana) 180 MG tabletIndications :Allergic rhinitis, unspecified seasonality, unspecified trigger Take 1 tablet (180 mg) by mouth 1 (one) time each day. 90 tablet 3 08/02/20 24 Active fluticasone (Flonase) 50 MCG/ACT nasal spray USE 1 SPRAY(S) IN EACH NOSTRIL TWICE DAILY 08/08/20 24 Active ondansetron ODT (Zofran-ODT) 8 MG disintegrating tablet DISSOLVE 1 TABLET IN MOUTH TWICE DAILY NEEDED FOR NAUSEA 07/30/20 24 Active mometasone-formot geno (Dulera) 200-5 MCG/ACT inhalerIndication s:Extrinsic asthma, unspecified asthma severity, unspecified whether complicated, unspecified whether persistent Inhale 2 puffs 2 (two) times a day. 13 g 11 08/13/20 24 Active albuterol (ProAir HFA) 108 (90 Base) MCG/ACT inhalerIndication s:Extrinsic asthma, unspecified asthma severity, unspecified whether complicated, unspecified whether persistent Inhale 2 puffs 1 (one) time if needed for wheezing or shortness of breath. 1 each 11 08/13/20 24 Active losartan (Cozaar) 100 MG tablet Take 1 tablet by mouth once daily 90 tablet 1 12/18/19 25 Active triamterene-hydro chlorothiazide (Maxzide-25) 37.5-25 MG tabletIndications :Primary hypertension Take 1 tablet by mouth once daily 90 tablet 1 01/04/20 25 Active Red Yeast Rice Extract (RED YEAST RICE PO) Take by mouth. Active omeprazole (PriLOSEC) [address] capsule Take 1 capsule by mouth once daily 90 capsule 3 02/27/20 25 Active levothyroxine (Synthroid, Levoxyl) 88 MCG tabletIndications :Acquired hypothyroidism Take 1 tablet by mouth daily. 90 tablet 3 04/02/20 25 Active hydrocortisone 2.5 % creamIndications: Poison rachel dermatitis Apply topically 2 times a day as needed for irritation or rash for up to 7 days. 30 g 2 04/05/20 25 2024 Active predniSONE (Deltasone) 20 MG tabletIndications :Poison rachel dermatitis Take 3 tabs (60mg) daily for 3 days, then take 2 tabs (40mg) daily for 3 days, then take 1 tab (20mg) daily for 3 days. 18 tablet 04/05/20 25 2024 Active levothyroxine (Synthroid, Levoxyl) 88 MCG tabletIndications :Acquired hypothyroidism Take 1 tablet (88 mcg) by mouth 1 (one) time each day. 90 tablet 3 01/30/20 24 2024 Discontinued diazePAM (Valium) 10 MG tablet Take 1 tablet by mouth 1 time for 1 dose. Take 1 hour before procedure. Do not drive; must have form setter/driver present for procedure. 1 tablet 03/18/20 25 2024 Active Problems Problem Noted Date Diagnosed Date Class 3 severe obesity in adult 05/18/2024 Mixed hyperlipidemia 01/30/2024 Chronic bilateral thoracic back pain 01/30/2024 SVT (supraventricular tachycardia) 11/30/2022 Morbid obesity with BMI of 40.0-44.9, adult 09/02 HTN (hypertension) 03/06/2021 Arthritis of both knees 08/11/2018 Ascending aortic aneurysm 01/07/2016 Hypothyroidism 12/12/2015 Chronic low back pain 07/03/2015 Peripheral neuropathy 04/10/2015 Vitamin B12 deficiency 04/10/2015 Obstructive sleep apnea 10/19/2013 Allergic rhinitis 07/31/2013 Extrinsic asthma 07/31/2013 Gastro-esophageal reflux disease without esophag itis 07/31/2013 Resolved Problems Problem Noted Date Diagnosed Date Resolved Date Prediabetes 04/01/2022 07/10/2024 Body aches 04/01/2022 09/29/2022 Viral URI with cough 04/01/2022 022 Cough 04/01/2022 09/29/2022 Headache 12/05/2018 07/10/2024 Restless legs 05/17/2016 07/10/2024 Edema 08/01/2015 10/07/2022 Hemangioma of liver 04/10/2015 07/10/20 24 Encounters Date Type Department Care Team Description 04/05/2025 9:00 AM EDT Office Visit [facility] [address] [place] [address] Julia Quiroz APRN, DNP Poison rachel dermatitis (Primary Dx) 04/05/2025 Travel 04/01/2025 Telephone [facility] [address] [place] [address] Alda Sandra MD HCN Clinical Concern/Question 03/30/2025 Refill [facility] [address] [place] [address] Alda Sandra MD Acquired hypothyroidism 03/26/2025 Telephone [facility] [address] [place] [address] Alda Sandra MD HCN Clinical Concern/Question 03/18/2025 8:30 AM EDT Office Visit [facility] [address] [place] [phone] German Espinosa MD Spondylosis of lumbar region without myelopathy or radiculopathy (Primary Dx) 03/18/2025 Travel 02/23/2025 Refill [facility] [address] [place] [address] Alda Sandra MD 02/22/2025 8:00 AM EDT Office Visit [facility] [address] [place] [address] Alda Sandra MD Acquired hypothyroidism (Primary Dx); Encounter for osteoporosis screening in asymptomatic postmenopausal patient; Primary hypertension; Gastro-esophageal reflux disease without esophagitis 02/22/2025 Results Follow-Up [facility] [address] [place] [address] Alda Sandra MD 02/22/2025 Travel 02/06/2025 1:30 PM EDT Procedure Visit [facility] [address] [place] [address] German Espinosa MD Myofascial pain; Spondylosis of lumbar region without myelopathy or radiculopathy 02/06/2025 Orders Only External Location [address] [place] [address] Provider, External 02/06/2025 Travel 01/15/2025 2:00 PM EDT Office Visit [facility] [address] [place] [address] German Espinosa MD Myofascial pain (Primary Dx); Muscle strain; Mid back pain; Rib pain; Chronic bilateral low back pain with right-sided sciatica; Paresthesia; Spondylosis of lumbar region without myelopathy or radiculopathy 01/15/2025 Travel from Last 3 Months Immunizations Immunization Administration Dates Next Due DTaP 04/10/2015 Hep A, Adult 02/22/2025 Hep A, Unspecified 04/10/2015 Hep B, Adolescent or Pediatric 10/17/2015 Hep B, adult 06/18/2015,04/10/2015 Influenza, Unspecified 10/09/2024,08/22/2023 Influenza, injectable, quadrivalent 08/28/2021 Influenza, injectable, quadr ivalent, preservative free 09/06/2023,08/31/2022,08/28/2021,2019,09/11/2019,08/30/2018,09/09/2016,1 11/05/2014 Influenza, seasonal, injectable 09/18/20 24,09/06/2023,08/31/2022,2012 Influenza, seasonal, injecta ble, preservative free 09/06/2016 Moderna COVID-19 Vaccine (Re d Cap) 12+ years 12/11/2020,11/13/2020 Pneumococcal 20-subha Conj Vaccine 08/31/2022 Pneumococcal Conjugate PCV 13 07/31/2013 TD (adult), 2 Lf tetanus tox oid, preservative free, adsorbed 10/04/2001 Tdap 09/18/2024 Zoster, Recombinant 11/03/2020,08/19/2020 Family History Medical History Relation Name Comments Diabetes Brother 1 Harvinder Lindsay Hypertension Brother 1 Harvinder Lindsay Diabetes Brother 2 Keegan Lindsay Hypertension Brother 2 Keegan Lindsay Hypertension Brother 3 Josh Lindsay Alzheimer's disease Father Hypertension Maternal Grandfather Shahbaz Kelsey Cancer Maternal Grandmother Katja Kelsey Hypertension Maternal Grandmother Katja Kelsey Atrial fibrillation Mother Iraida Lindsay Cancer Mother Iraida Lindsay Diabetes Mother Iraida Lindsay Hypertension Mother Iraida Lindsay Kidney cancer Mother Iraida Lindsay Breast cancer Other 1 Tremor Other 2 Cancer Paternal Grandmother Sharri Lindsay Relation Name Status Comments Brother 1 Harvinder Lindsay Brother 2 Keegan Lindsay Brother 3 Josh Lindsay Father Maternal Grandfather Shahbaz Canoart Maternal Grandmother Katja Ortegakhart Mother Iraida Lindsay Other 1 Other 2 Paternal Grandmother Sharri Lindsay Social History Tobacco Use Types Packs/Day Years Used Date Smoking Tobacco: Former Cigarettes 1 25 0 10/31/1976 - 1999 Passive Smoke Exposure: Never Smokeless Tobacco: Never Tobacco Cessation:Counseling Given: No Alcohol Use Standard Drinks/Week Comments Not Currently [...] How often do you attend [facility] or scientology services? More than 4 times per year 08/01/2024 Do you belong to any clubs o r organizations such as hoahaoism groups, unions, fraternal or athletic groups, or school groups? Yes 08/01/2024 How often do you attend meet ings of the clubs or organizations you belong to? More than 4 times per year 08/01/2024 Are you , , di vorced, , never , or living with a partner? 08/01/2024 PHQ-2 Answer Date Recorded Patient Health Questionnaire-2 Score 0 03/18/2025 [facility] - Occupational Stress Questionnaire Answer Date [...] any time in the past 12 m ont, were you homeless or living in a jail (including now)? 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 0 10/21/2024 CAGE Questionnaire Score 0 024 Utilities Answer Date Recorded In the past 12 months has th e [employer], gas, oil, or water company threatened to [...] Not on file Not on sonido e Last Filed Vital Signs Vital Sign Reading [...] Mass Index 36.69 04/05/2025 9:21 AM EDT Plan of Treatment Upcoming Encounters Date Type Department Care Team (Late st Contact Info) Description 04/15/2025 2:15 PM EDT Office Visit [facility] Medicine Specialties [address] [place] [address] Shanice Freedman, KEYSHA [address] [place] [address] 05/29/2025 9:30 AM EDT Procedure Visit [facility] [address] [facility] [place] [phone] German Espinosa MD [address] [facility] [address] [place] [address] 07/18/2025 1:20 PM EDT Office Visit [facility] [place] [address], [address] [place] [address] Bradni Bermeo MD [address] [place] [address] Health Maintenance Due Date Last Done Comments [facility]-Infant/Child/Adol SDOH Screenings 1960 [address] Colonography 2006 FIT-DNA 2006 FIT 2006 FOBT 2006 Sigmoidoscopy 2006 [id number] Vaccine (3 - Moderna risk series) 01/08/2021 12/11/2020, 11/13/2020 [facility]-RSV Vaccine: 60+ Years or (1 - Risk 60-74 years 1-dose series) 2021 [facility]-Diabetes: Hemoglobin A1C 08/02/202512/2023, 12/18/2021, 03/06/2021, Additional history exists [facility]-Medicare Annual Wellness (AWV) 08/02/2025 08/02/2024 Colonoscopy 08/12/2025 08/12/2022 [facility]-Colorectal Cancer Screening 08/12/2025 [facility]- SDOH Screenings 08/24/2025 [facility]-Adult SDOH Screenings 08/24/2025 02/22/2025 [facility]-Depression Screening 03/18/2026 03/18/2025, 01/30 [facility]-Breast Cancer Screening 07/20/202607/02, 07/11/2023, 07/11/2023, Additional history exists [facility]-DTaP,Tdap,and Td Vaccines (3 - Td or Tdap) 09/18/2034 09/18/2024, 04/10/2015, 10/04/2001 [facility]-Zoster Vaccines Completed 11/03/2020, [facility]-Pneumococcal Vaccine: 50+ Years Completed 08/31/2022, 07/31/2013 [facility]-Influenza Vaccine Completed 10/09/2024 , 09/18/2024, 09/06/2023, Additional history exists [facility]-HIV Screening Completed 10/21/2024 [facility]-Hepatitis C Screening Completed 10/21/2024 [facility]-Hepatitis A Vaccines Aged Out 02/22/2025, 03/31 No longer eligible based on patient's age to complete this topic [facility]-Obesity Intervention Completed 025, 03/18/2025, 02/22/2025, Additional history exists HPV Vaccines Aged Out No longer eligi ble based on patient's age to complete this topic [facility]-HIB Vaccines Aged Out No longer e ligible based on patient's age to complete this topic [facility]-IPV Vaccines Aged Out No longer e ligible based on patient's age to complete this topic [facility]-Rotavirus Vaccines Aged Out No lo nger eligible based on patient's age to complete this topic Procedures Procedure Name Priority Date/Time Associated Diagnosis Comments TSH Routine 02/22/2025 8:42 AM EDT Primary hypertension Acquired hypothyroidism LIPID PROFILE, PLASMA Routine 02/22/2025 8:42 AM EDT Primary hypertension COMPREHENSIVE METABOLIC PANEL, PLASMA Routine 02/22/2025 8:42 AM EDT Primary hypertension INJECT TRIGGER POINTS, > 3 Routine 02/06/2025 1:30 PM EDT Myofascial pain POC ULTRASOUND 02/06/2025 HEPATITIS C ANTIBODY - ED W/REFLEX TO HCV QUANT PCR STAT 10/21/2024 1:14 PM EST ED HIV 1/2 ANTIBODY/ANTIGEN SCREEN WITH REFLEX TO HIV I/II DIFFERENTIATION STAT 10/21/2024 1:14 PM EST HEMOGLOBIN A1C Routine 08/02/2024 4:42 PM EDT Prediabetes MAMMOGRAPHY BREAST SCREENING TOMOSYNTHESIS BILATERAL 07/20/2024 9:03 AM EDT COLONOSCOPY EXTERNAL RESULT 08/12/2022 from Last 3 Months or Most Recently Relevant to Health Maintenance Results * Thyroid Stimulating Hormone, Plasma (02/22/2025 8:42 AM EDT) Thyroid Stimulating Hormone, Plasma 2.55 0.40 - 4.20 uIU/mL 02/22/2025 1:19 PM EDT [facility] Blood Venous blood specimen / Unknown Venipuncture / Unknown 02/22/2025 8:42 AM EDT 02/22/2025 8:42 AM EDT us Alda Sandra MD LAB BLOOD ORDERABLES Final Re sult [facility] [address] [place] [address] * (ABNORMAL) Lipid Profile, Plasma (02/22/2025 8:42 AM EDT) Cholesterol, Plasma 246(H) <200 mg/dL 02/22/2025 1:19 PM EDT [facility] Comment: Cholesterol Reference Range (age >17 years): Desirable <200 mg/dL Borderline 200 to 239 mg/dL Undesirable >239 mg/dL HDL 44(L) >=50 mg/dL 02/22/2025 1:19 PM EDT [facility] Comment: HDL Cholesterol Reference Ranges (age >17 years): Female, acceptable > or = 50 mg/dL Male, acceptable > or = 40 mg/dL Triglycerides, Plasma 173(H) <150 mg/dL 02/22/2025 1:19 PM EDT [facility] Comment: Triglyceride Reference Range (age >17 years): Desirable: <150 mg/dL Borderline high: 150 to 199 mg/dL High: 200 to 499 mg/dL Very high: >499 mg/dL Increased risk of pancreatitis: >1000 mg/dL Cholesterol/HDL Ratio 6 02/22/2025 1:19 PM EDT [facility] LDL, Calculated 170(H) <100 mg/dL 1:19 PM EDT [facility] Comment: LDL Cholesterol Reference Range [...] 12 hours? Yes 02/22/2025 1:19 PM EDT [facility] Blood Venous blood specimen / Unknown Venipuncture / Unknown 02/22/2025 8:42 AM EDT 02/22/2025 8:42 AM EDT us Alda Sandra MD LAB BLOOD ORDERABLES Final Re sult [facility] [address] [place] [address] * (ABNORMAL) Comprehensive Metabolic Panel, Plasma (02/22/2025 8:42 AM EDT) Glucose, Plasma 89 74 - 99 mg/dL 02/22/2025 1:19 PM EDT [facility] BUN, Plasma 26(H) 8 - 23 mg/dL 02/22/2025 1:19 PM EDT [facility] Creatinine, Plasma 0.84 0.60 - 1.10 mg/dL 02/22/2025 1:19 PM EDT [facility] BUN/Creatinine Ratio 31 02/22/2025 1:19 PM EDT [facility] Sodium, Plasma 141 136 - 145 mmol/L 02/22/2025 1:19 PM EDT [facility] Potassium, Plasma 4.3 3.6 - 4.9 mmol/L 02/22/2025 1:19 PM EDT [facility] Chloride, Plasma 103 97 - 107 mmol/L 02/22/2025 1:19 PM EDT [facility] CO2, Plasma 28 22 - 29 mmol/L 02/22/2025 1:19 PM EDT [facility] Anion Gap 10 6 - 16 mmol/L 02/22/2025 1:19 PM EDT [facility] Total Calcium, Plasma 9.7 8.9 - 10.2 mg/dL 02/22/2025 1:19 PM EDT [facility] Total Protein 6.7 6.3 - 7.9 g/dL 02/22/2025 1:19 PM EDT [facility] Albumin, Plasma 4.3 3.5 - 5.2 g/dL 02/22/2025 1:19 PM EDT [facility] AST, Plasma 19 10 - 35 U/L 02/22/2025 1:19 PM EDT [facility] ALT, Plasma 20 10 - 35 U/L 02/22/2025 1:19 PM EDT [facility] Alkaline Phosphatase, Plasma 86 46 - 142 U/L 02/22/2025 1:19 PM EDT [facility] Total Bilirubin, Plasma 0.5 0.2 - 1.1 mg/dL 02/22/2025 1:19 PM EDT [facility] eGFRcr 78.2 mL/min/1.7 3m*2 02/22/2025 1:19 PM EDT [facility] Comment:Reported eGFRcr in m L/min/1.73m2 is based the CKD-EPI 2020 equation that does not use a race coefficient. Blood Venous blood specimen / Unknown Venipuncture / Unknown 02/22/2025 8:42 AM EDT 02/22/2025 8:42 AM EDT us Alda Sandra MD LAB BLOOD ORDERABLES Final Re sult [facility] [address] [place] [address] * INJECT TRIGGER POINTS, > 3 (02/06/2025 1:30 PM EDT) Narrative German Espinosa MD - 02/06/2025 1:30 PM EDT German Espinosa MD 02/06/2025 3:55 PM Injection - Trigger Point, 3+ Performed by: Dale German MD Authorized by: German Espinosa MD us German Espinosa MD IN CLINIC/BEDSIDE ORDER ORIN Final Result * POC Imaging (02/06/2025) Anatomical Region Laterality Modality Pelvis Other 02/06/2025 us External Provider IMG POINT OF CARE ULTRASOUND F inal Result * ED HIV 1/2 Antibody/Antigen Screen w/Reflex to HIV 1/2 Differentiation (10/21/2024 1:14 PM EST) HIV 1 & 2 Antibody/Antigen Screen Non Reactive Non Reactive 10/21/2024 2:06 PM EST [facility] Comment:Screening for HIV 1 & 2 antibodies, and P24 antigen is NONREACTIVE. No confirmatory testing is required. Blood Venous blood specimen / Unknown Venipuncture / Unknown 10/21/2024 1:14 PM EST 10/21/2024 1:26 PM EST Bobby Fatima MD LAB BLOOD ORDERABLES Final Result Performing Organization Address City/[facility]/ZIP Co de Phone Number [facility] [address] [place] [address] * Hepatitis C Antibody - ED (10/21/2024 1:14 PM EST) Hepatitis C Antibody Negative Negative 10/21/2024 2:07 PM EST [facility] Blood Venous blood specimen / Unknown Venipuncture / Unknown 10/21/2024 1:14 PM EST 10/21/2024 1:26 PM EST Bobby Fatima MD LAB BLOOD ORDERABLES Final Result Performing Organization Address [facility] Co de Phone Number [facility] [address] [place] [address] * Hemoglobin A1c (08/02/2024 4:42 PM EDT) Hemoglobin A1c 5.0 <5.7 % 08/02/2024 6:42 PM EDT [facility] Blood Venous blood specimen / Unknown Venipuncture / Unknown 08/02/2024 4:42 PM EDT 08/02/2024 4:42 PM EDT Narrative [facility] - 08/02/2024 6:42 PM EDT HA1C Interpretive Data: Diagnosis of Diabetes: Diabetic > or = 6.5% Pre-diabetic 5.7 to 6.4% Non-diabetic < or = 5.6% Glycemic Targets for Type I and Type II Diabetics: Non- Adults <7.0% Adults <6.0% Children and Adolescents <7.5% Source: [place] [employer]. Standards of medical care in diabetes,2017. Diabetes Care.2017:40 (suppl 1):S1-S135. HbA1c assay performed by an ion-exchange chromatography method that is certified traceable to the DCCT. us Alda Sandra MD LAB BLOOD ORDERABLES Final Re sult [facility] [address] [place] [address] * Mammography Breast Screening Tomosynthesis Bilateral (07/20/2024 9:03 AM EDT) Anatomical Region Laterality Modality Breast Bilateral Mammography 07/20/2024 9:03 AM EDT Narrative 07/20/2024 10:24 AM EDT [address] [address] Name: DISHA REYES Exam Date: 07/20/2024 : 1960 Age 64 years Gender: F Physician: Alda Sandra Facility: [facility] Facility HSV: Outpatient Exam: ISELA SCRN [...] Isbell 07/20/2024 Thank you for referring DISHA REYES to [facility]. Legally authenticated by NANCI MULLEN 2024-07-20 09:54:29 Procedure Note Provider, Generic [facility] - 07/20/2024 [place] [address] Name: DISHA REYES Exam Date: 07/20/2024 : 1960 Age 64 years Gender: F Physician: Alda Sandra Facility: [facility] Facility HSV: Outpatient Exam: ISELA SCRN [...] Isbell 07/20/2024 Thank you for referring DISHA REYES to [facility]. Legally authenticated by NANCI MULLEN 2024-07-20 09:54:29 us Alda Sandra MD IMG BI PROCEDURES Final Resul t * COLONOSCOPY EXTERNAL RESULT (08/12/2022) Anatomical Region Laterality Modality Endoscopy Narrative 08/12/2022 Ordered by an unspecified provider. us External Provider GI PROCEDURE ORDERABLES Final Result from Last 3 Months or Most Recently Relevant to Health Maintenance Additional Health Concerns Infection Onset Date Last Indicated COVID-19 Rule-Out 11/01/2023 11/01/2023 Insurance [facility] MEDICARE [employer] Care Teams Parts Interpreter Relationship Specialty Start Date End Date Alda Sandra MD [facility] [place] [address] PCP - General 03/13/21
--- OUTSIDE RECORDS SUMMARY | 2025-04-08 13:41 | XMS_ITS | Encounter Summary ---
Author Organization [facility] Address [address] [place] [address] Care Team Providers Care Manager Monitoring Name Role Phone Alda Sandra MD Primary Care Provider [phone] Reason for Visit * Reason Comments Med Refill Encounter Details Date Type Department Care Team (Late st Contact Info) Description 03/30/2025 Refill [facility] [address] [place] [address] Alda Sandra MD [address] [place] [address] Acquired hypothyroidism Social History Tobacco [...] ways by your partner or ex-partner? No 04 / Within the last year, have y ou [...] How often do you attend chur or zoroastrian services? More than 4 times per year 08/01/2024 Do you belong to any clubs o r organizations such as mandaen groups, unions, fraternal or athletic groups, or [...] Recorded Patient Health Questionnaire-2 Score 0 03/18/2025 [facility] - Occupational Stress Questionnaire [...] place to sleep or slept in a intermediate (including now)? No 08/01/2024 PHQ-9 Answer Date [...] in the past 12 m [facility], were you homeless or living in a intermediate (including now)? 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 documented in this encounter Plan of Treatment Upcoming Encounters Date Type Department Care Team (Late st Contact Info) Description 04/15/2025 2:15 PM EDT Office Visit [facility] Medicine Specialties [address] [place] [address] Shanice Freedman APRN [address] [place] [address] 05/29/2025 9:30 AM EDT Procedure Visit [facility] Medicine [address] [facility] [place] [address] German Espinosa MD [address] [facility] [address] [place] [address] 07/18/2025 1:20 PM EDT Office Visit [facility] [place] [address] [place] [address] Brandi Bermeo MD [address] [place] [address] documented as of this encounter Visit Diagnoses [...] documented as of this encounter Care Teams Manager Monitoring Relationship Specialty Start Date End Date Alda Sandra MD [address] [place] [address] PCP - General 03/13/21 documented as of this encounter
--- OUTSIDE RECORDS SUMMARY | 2025-04-08 13:41 | XMS_ITS | Encounter Summary ---
Author Organization [facility] Address [address] [place] [place] [address] Care Team Providers Care Product Development Technician Name Role Phone Alda Sandra MD Primary Care Provider [phone] Encounter Details Date Type Department Care Team (Late st Contact Info) Description 02/22/2025 Results Follow-Up [facility] [address] [place] [address] Alda Sandra MD [address] [place] [address] Social History Tobacco Use Types [...] How often do you attend chur or sabianism services? More than 4 times per year 08/01/2024 Do you belong to any clubs o r organizations such as denominational groups, unions, fraternal or athletic groups, or [...] Recorded Patient Health Questionnaire-2 Score 0 02/22/2025 [facility] Occupational Stress Questionnaire Answer Date [...] place to sleep or slept in a mcfp (including now)? No 08/01/2024 PHQ-9 Answer Date [...] any time in the past 12 m [facility], were you homeless or living in a mcfp (including now)? 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 nerves or to get [...] things Not at all 02/22/2025 8:00 AM Jennifer Burton Feeling down, depressed, or hopeless Not at all 01/30 8:00 AM EDJennifer Chatterjee Patient Health Questionnaire-2 Score 0 01/30 8:00 AM EDJennifer Chatterjee * Question Answer Date of Assessment Author Trouble falling or staying a sleep, or sleeping too much Not at all 02/22/2025 8:00 AM Jennifer Burton Feeling tired or having little energy Not at all 8:00 AM Jennifer Burton Poor appetite or overeating Not at all 02/22/2025 8: 00 AM Jennifer Burton Feeling bad about yourself - or that [...] 1 Month) No 025 8:00 AM EDT Jennfier Floyd 2. Non-Specific Active Suici jesus Thoughts (Past 1 Month) No 02/22/2025 8:00 AM EDT Jennifer Floyd 6. Suicidal Behavior (Lifetime) No 8:00 AM EDT Jennifer Floyd documented as of this encounter Plan of Treatment Upcoming Encounters Date Type Department Care Team (Late st Contact Info) Description 04/15/2025 2:15 PM EDT Office Visit [facility] [address] [place] [address] Shanice Freedman, MISSION COMMANDER [address] [place] [address] 05/29/2025 9:30 AM EDT [facility] [address] [place] [address] German Espinosa MD [address] [place] [address] 07/18/2025 1:20 PM EDT Office Visit [facility] [place] [address] [place] [address] Brandi Bermeo MD [address] [place] [address] documented as of this encounter [...] documented as of this encounter Care Teams Product Development Technician Relationship Specialty Start Date End Date Alda Sandra MD [address] [place] [address] PCP - General 03/13/21 documented as of this encounter
--- OUTSIDE RECORDS SUMMARY | 2025-04-08 13:41 | XMS_ITS | Encounter Summary ---
Author Organization [facility] Address [address] [place] [address] Care Team Providers Care Compound Worker Name Role Phone Alda Sandra MD Primary Care Provider [phone] Encounter Details Date Type Department Care Team (Latest Contact Info) Description 04/05/2025 Travel Social History Tobacco Use Types Packs/Day [...] often do you attend chur ch or lutheran services? More than 4 times per year 08/01/2024 Do you belong to any clubs o r organizations such as taoism groups, unions, fraternal or athletic groups, or school groups? Yes 08/01/2024 How often do you attend meet ings of the clubs or organizations you belong to? More than 4 times per year 08/01/2024 Are you , , di vorced, , never , or living with a partner? 08/01/2024 PHQ-2 Answer Date Recorded Patient Health Questionnaire-2 Score 0 03/18/2025 [facility] - Occupational [...] place to sleep or slept in a fdc (including now)? No 08/01/2024 PHQ-9 Answer Date [...] time in the past 12 m [facility], were you homeless or living in a fdc (including now)? 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 0 10/21/2024 CAGE Questionnaire Score 0 024 Utilities Answer Date Recorded In the past 12 months has e [employer], gas, oil, or water company threatened to [...] as of this encounter Functional Status * AUDIT-C Score [...] (Past 1 Month) No 025 9:25 AM CAMILLET July Quinn 2. Non-Specific Active Suici jesus Thoughts (Past 1 Month) No 04/05/2025 9:25 AM CAMILLET July Quinn 6. Suicidal Behavior (Lifetime) No 9:25 AM EDT July Quinn documented as of this encounter Plan of Treatment Upcoming Encounters Date Type Department Care Team (Late st Contact Info) Description 04/15/2025 2:15 PM EDT Office Visit [facility] Medicine Specialties [address] [place] [address] Shanice Freedman, KEYSHA [address] [place] [address] 05/29/2025 9:30 AM EDT Procedure Visit [facility] Medicine [address] [place] [address] German Espinosa MD [address] [facility] [address] [facility] [address] [place] [address] 07/18/2025 1:20 PM EDT Office Visit [facility] [place] [address], [address] [place] [address] Brandi Bermeo MD [address] [place] [address] documented as of this encounter [...] documented as of this encounter Care Teams Compound Worker Relationship Specialty Start Date End Date Alda Sandra MD [address] [place] [address] PCP - General 03/13/21 documented as of this encounter
--- OUTSIDE RECORDS SUMMARY | 2025-04-08 13:41 | XMS_ITS | Data Portability ---
Author Organization [facility] RAH Saldivar [place] [facility] Address [address] [place] [address] Care Team Providers Care Soccer Referee Name Role Phone ALDA SANDRA Primary Care Provider [phone] CAYETANO NATH Referring Provider Assessment Encounter Date Assessment Date Assessment LastModified by Organization Details LastModified Time 09/30/2022 09/30/2022 1. RLS, doing well, possibly provoked by history of recurrent blood donation with consequent iron deficiency. She no longer does that. 2. Nocturnal muscle cramps. This has been bothersome for a few mos but is not a new issue. 3. Mid-back pain 4. Mild CTS on NCS 5. Family h/o PD. No evidence of that on exam. Discussed the above. For the most part she seems to be doing OK. We discussed ways to manage cramps. The diuretic could be aggravating the problem. Prescription meds are not often helpful but can be tried; she is not especially interested in more medicines. She might benefit from pain management or PT for the back pain. Mostly though she has been bothered by hip pain and is to f/u orthopedics. Will have her f/u with me as needed. [email or web address] Not available 09/30/2022 13:23:11 Plan of Treatment Reminders Order Date Submit Date Provider Last Modified By Organization Details Last Modified Time Details Appointments None recorded. Lab glycohemogl obin, total, blood 2018 019 [facility], [address] [place] [address], [place], [address], 9 12:26:16 Referral None recorded. Procedures nerve conduction study/EMG, upper extremity (PROC) - EMG RUE +/- LUE with Floridalma; eval CTS? 2020 021 [email or web address] Not available 13:36:53 Surgeries None recorded. Imaging None recorded. Medication Orders None recorded. Patient TargetsNo targets recorded. Patient Instructions Encounter Date Encounter Id Patient Instructions Last Modified By Organization Details Last Modified Time 06/20/2019 [id number] restless legs syndrome: care instructions [email or web address] Not available 06/20/2019 10:54:47 sleep apnea: car e instructions [email or web address] Not available 06/20/2019 10:54:47 CARPAL TUNNEL SYNDROME-LC [email or web address] Not available 06/20/2019 10:54:47 neuropathic pain : care instructions [email or web address] Not available 06/20/2019 10:54:47 06/24/2020 [id number] restless legs syndrome: care instructions [email or web address] Not available 06/24/2020 13:07:45 sleep apnea: car e instructions [email or web address] Not available 06/24/2020 13:07:44 CARPAL TUNNEL SYNDROME-LC [email or web address] Not available 06/24/2020 13:07:44 neuropathic pain : care instructions Not available 06/24/2020 13:07:45 06/23/2021 [id number] CARPAL TUNNEL SYNDROME-LC [email or web address] Not available 06/23/2021 13:19:11 09/30/2022 [id number] I spent 5 minute s reviewing notes, 25 min with pt, 5 minutes typing this. [email or web address] Not available 09/30/2022 13:23:30 Reason for Referral None Reported. Results Created Date Observation Date Name Description Value Unit Range Abnormal Flag Note LastModifiedBy Organization Detail LastModifiedTime 06/20/2006/20/2019 glyco hemog lobin , total , blood glyco HGB A1C 5.8 % 0.0-5. 6 high Not Available [facility] [address] [place], [address], 06/20/2019 12:26:16 06/20/2006/20/2019 glyco hemog lobin , total , blood estimated avg. glucose 120 mg/dL _(viet c) normal New guide lines by the V[facility]ctor can [facility]abe gabriella [employer] iatio n state that a hemog lobin A1c level of 5.7-6 .4% indic ates an incre ased risk of diabe gabriella. A resul t of 6.5% or highe r is diagn ostic of diabe gabriella. Not Available [facility] [address], [place], [address], 06/20/2019 12:26:16 08/04/20 elect romyo gram + nerve condu ction study No observ ation record ed. [email or web address] Not Available 2020 09:21:14 Result Notes None recorded. Problems Name Problem SNOMED Code Status Onset Date Resolution Date Notes Provider Name and Address Organization Details Recorded Time Finding of sensation by site 165363477 Active 2015 From Automated Load;Provi brittany: Nikole Landers;Stat us: Active Anna Solitario [facility] 9 15:15:49 Lack of energy 867441986 Active 2015 From Automated Load;Provi brittany: Nikole Landers;Stat us: Active Anna Michaelles [facility] 9 15:15:49 Obesity 418062008 Active 2015 From Automated Load;Provi brittany: Nikole Landers;Stat us: Active Anna Solitario [facility] 9 15:15:49 Restless legs 39669706 Active 2015 From Automated Load;Provi brittany: Nikole Landers;Stat us: Active Anna Altaf [facility] 9 15:15:49 Problem Notes None recorded. Procedures Surgical History Date Name Laterality Status Provider Name and Address Organization Details Recorded Time 021 Electromyography (EMG) with Nerve Conduction Study (NCV) completed Jennifer Tran (Nicky) [facility] 08/04/2021 17:08:48 019 Uroflowmetry; Complex completed Mayra Hunt [facility] 04/12/2019 16:57:06 019 Urodynamics Interpretation completed LIZBETH ELLIS MD [address] [place], [address], [facility] 04/16/2019 08:01:58 019 Urodynamics completed Mayra Hunt [facility] 04/12/2019 17:03:42 018 Electromyography (EMG) with Nerve Conduction Study (NCV) completed Jennifer Tran (Nicky) [facility] 12/29/2017 10:57:00 017 Colonoscopy completed [facility] 12/21/2017 09:02:24 016 Back Surgery completed [facility] 12/21/2017 09:02:24 001 Lumbar Spine Surgery completed [facility] 12/21/2017 09:02:24 995 Hysterectomy completed [facility] 12/21/2017 09:02:24 Hysterectomy completed [facility] 05/09/2017 08:35:21 Arthrd ant ntrbd min dsc lum completed [facility] 05/09/2017 08:35:26 Other completed [facility] 05/09/2017 08:35:35 Imaging Results None recorded. Procedure Notes None recorded. Medical Equipment None Reported. Allergies No known drug allergies Medications Name Sig Start Date Stop Date Status Note LastModified by Organization Details LastModified Time losartan 50 mg tablet Take 1 tablet every day by oral route. 06/23 completed Not Available Not Available Not Available Diovan HCT 80 mg-12.5 mg tablet Daily 06/20 completed Frequenc y: daily;Me dication Descript ion: hydrochl orothiaz dell-vals ashley; Dosage:1 ; Route:or al; refills: 5; Quantity :30 tablet Not Available Not Available Not Available triamtere ne 50 mg-hydroc hlorothia zide 25 mg capsule Take 1 capsule every day by oral route. active Not Available Not Available No t Available oxybutyni n chloride ER 10 mg tablet,ex tended release 24 hr Take 1 tablet every day by oral route. 06/24 completed Not Available Not Available Not Available Requip 1 mg tablet 1-2 tabs qhs 06/24 completed Duration : 30 days;Edgardo quency: hs;Alt Frequenc y: prn;Medi cation Descript ion: ropiniro le; Dosage:1 /2-1; Route:or al; refills: 11; Quantity :30 tablet Not Available Not Available Not Available Robaxin 500 mg tablet Take 2 tablets 4 times a day by oral route. 06/24 completed Not Available Not Available Not Available omeprazol e 20 mg capsule,d elayed release Two times a day active Frequenc y: bid;Medi cation Descript ion: omeprazo le; Dosage:1 ; Route:or al; refills: 0 Not Available Not Available Not Available diclofena c sodium 75 mg tablet,de layed release Take 1 tablet twice a day by oral route. active Not Available Not Available No t Available Voltaren 50 mg tablet,de layed release Take 1 tablet every day by oral route. 09/30 completed Not Available Not Available Not Available losartan 100 mg tablet Take 1 tablet every day by oral route. active Not Available Not Available No t Available sertralin e 50 mg tablet Take 1 tablet every day by oral route. 06/20 completed Not Available Not Available Not Available metoprolo l tartrate 25 mg tablet active Medicati on Descript ion: metoprol ol; Route:or al; refills: 0 Not Available Not Available Not Available duloxetin e 60 mg capsule,d elayed release Take by oral route. 06/20 completed Not Available Not Available Not Available Co Q-10 200 mg capsule Take by oral route. active Not Available Not Available No t Available Vitamin B-12 Once monthly 09/30 completed Frequenc y: 1x /month;M edicatio n Descript ion: cyanocob alamin; Dosage:1 ; Route:or al; refills: 0 Not Available Not Available Not Available levothyro xine 75mcg active Medicati on Descript ion: levothyr oxine; refills: 0 Not Available Not Available Not Available Vitamin D3 Daily active Frequenc y: daily;Me dication Descript ion: cholecal ciferol; Dosage:1 ; Route:or al; refills: 0 Not Available Not Available Not Available multivita min active Not Available Not Available Not Available Vitamin B-Complex Daily 05/09 completed Frequenc y: daily;Me dication Descript ion: multivit pompa; Dosage:1 ; Route:or al; refills: 0 Not Available Not Available Not Available magnesium malate citrate active Medicati on Descript ion: OTC; refills: 0 Not Available Not Available Not Available ProAir HFA active Not Available Not Available Not Available vitamin E (dl, acetate) 180 mg (400 unit) capsule Take by oral route. active Not Available Not Available No t Available Dulera 100 mcg-5 mcg/actua tion HFA aerosol inhaler active Medicati on Descript ion: formoter ol-momet asone; Route:in halation ; refills: 0 Not Available Not Available Not Available Saxenda 3 mg/0.5 mL (18 mg/3 mL) subcutane ous pen injector Inject by subcutan eous route. active Not Available Not Available No t Available Vitals Date Recorded Body height Body mass index (BMI) Body weight Heart rate Systolic blood pressure Diastolic blood pressure Provider Name and Address Organization Details Last Updated DateTime 9 165.1 cm 44.6 kg/m2 758520. 76 g 70 /min 128 mm[Hg] 88 mm[Hg] [facility] 9 09:23:40 Date Recorded Body height Body mass index (BMI) Body weight Heart rate Systolic blood pressure Diastolic blood pressure Provider Name and Address Organization Details Last Updated DateTime 1 165.1 cm 43 kg/m2 818697. 63 g 68 /min 118 mm[Hg] 84 mm[Hg] [facility] 1 11:42:33 Date Recorded Body height Body mass index (BMI) Body weight Heart rate Systolic blood pressure Diastolic blood pressure Provider Name and Address Organization Details Last Updated DateTime 0 165.1 cm 45.3 kg/m2 150603. 12 g 68 /min 122 mm[Hg] 78 mm[Hg] [facility] 0 11:33:09 Date Recorded Body weight Oxygen saturation Oxygen saturation in Arterial blood by Pulse oximetry Heart rate Systolic blood pressure Diastolic blood pressure Provider Name and Address Organization Details Last Updated DateTime 2 390645. 87 g 96 % 96 % 75 /min 128 mm[Hg] 84 mm[Hg] Jennifer Ward [facility] 2 11:35:55 Social History Question Answer Notes LastModified by Organizat ion Details LastModified Time Tobacco Smoking Status Never Smoker Julee Marianopaulineenio [facility] 05/09/2017 08:35:11 How Many Years Have You Consumed Alcohol? 20 Information not available 12/21/2017 How Much Tobacco Do You Chew? None [email or web address] Information not available 03/21/2019 Which Illicit Or Recreational Drugs Have You Used? No Information not available 12/21/2017 When Did You Quit Smoking? 16+yearssinc elastcigaret te Information not available 12/21/2017 Live Alone Or With Others? With Others Information not available 05/09/2017 Marital Status [email or web address] Informat ion not available 05/09/2017 What Was The Date Of Your Most Recent Tobacco Screening? 09/30/2022 [email or web address] Information not available 09/30/2022 Sex: Unknown Functional Status Question Answer Note LastModified by Organizat ion Details LastModified Time What is your level of alcohol consumption? Occasional Information not available 05/09/2017 What is your occupation? Disabled Information not available 05/09/2017 Mental Status None recorded. Family History Relationship Description Onset Age of this Age Resolved Age Notes LastModified by Organization Details LastModified Time Brother Harmful pattern of use of alcohol 16 [email or web address] Not available 09:01:56 Brother Hypertensive disorder 56 [email or web address] Not available 09:01:56 Father Alzheimer's disease 73 76 [email or web address] Not available 09:01:56 Father Dementia 73 76 [email or web address] Not avail able 12/21/2017 09:01:56 Maternal Grandmother Family history of malignant neoplasm 86 89 [email or web address] Not available 09:01:56 Mother Diabetes mellitus 55 [email or web address] Not available 09:01:56 Mother Hypertensive disorder 45 [email or web address] Not available 09:01:56 Maternal Uncle Family history of malignant neoplasm 70 76 [email or web address] Not available 09:01:56 Maternal Aunt Parkinson's disease 45 79 [email or web address] Not available 09:01:56 Son Harmful pattern of use of alcohol 16 [email or web address] Not available 09:01:56 Unspecified Relation Family history of malignant neoplasm 60 [email or web address] Not available 09:01:56 Unspecified Relation Family history of malignant neoplasm 64 [email or web address] Not available 09:01:56 Maternal Grandfather Hypertensive disorder 38 42 [email or web address] Not available 09:01:56 Maternal Grandfather Heart disease 38 42 [email or web address] Not available 09:01:56 Paternal Uncle Dementia 81 89 [email or web address] Not available 12/02 09:01:56 Paternal Grandmother Family history of malignant neoplasm 78 78 [email or web address] Not available 09:01:56 Medical History Condition Response Allergies/Hayfever Y Coronary Artery Disease N Other N Thyroid Disease Y Kidney Stones Y Gallbladder Disease N Migraines Y Depression Y COPD N Colon Polyps N Heart Attack (CO) N Anxiety Disorder Y Diabetes N Arthritis Y Congestive Heart Failure (CHF) N Acid Reflux (GERD) Y Stroke N Diverticulitis N Asthma Y Crohn's Disease N Sleep Apnea Y High Cholesterol Y Liver Disease N Heart Disease Y Hypertension Y Kidney Disease N Gynecological HistoryNo gynecological history recorded. Obstetrics History GPAL:G 0 P 0 0 0 0 Past Encounters Encounter ID Performer Location Encounter Start Date Encounter Closed Date Diagnosis/Indication Diagnosis SNOMED-CT Code Diagnosis ICD10 Code Diagnosis Note [id number] NIKOLE LANDERS MD NEUROLOGY [facility] [address] [place] [address] 05/09/2017 09:41:21 05/09/2017 12:43:20 Restless legs 66556026 G25.81 Increase Requip from 1 mg qhs to 1-2 mg qhs + FH PD, dystonia snd ET mother's side Obstructiv e sleep apnea syndrome 09309929 G47.33 on CPAP but not managed; got a free mask/CPAP through a friend - I've asked her to get me the report (from [facility]) and I will manage. Counseled on the importance of using regularly. Cramp in lower limb 4499 00799 R25.2 resume B-complex, continue B12 still on vitamin D3 5000 units daily- recommend she have her level tested to be sure not too high and that this does is adequate- was on 2000 iu when level was 36; goal level is 50-70. Depressive disorder 2316 5565 F32.89 suspect this is adjustment d/o with depression following suicide of her son 03/04/17 - continue Cymbalta- pt counseled on importance of seeking psychiatri c help, medication changes, counseling -- she agrees and plans to go through [facility] for referral RTC 6 months or sooner PRN CC: Cayetano Nath MD [id number] NIKOLE LANDERS MD NEUROLOGY [facility] [address] [place] [address] 12/21/2017 08:57:44 12/21/2017 12:25:54 Restless legs 36017700 G25.81 Continue Requip from 1 mg qhs to 1-2 mg qhsI provided literature on CBD oil which she was intereted in.I informed her that I have little familiarit y of use of CBD oil in [place] but would prefer she use a reputable company - provided literature . wait and watch on possible PD + FH PD, dystonia and ET mother's side Obstructiv e sleep apnea syndrome 18975285 G47.33 asked her to resume CPAP; not managed; she has a free mask/CPAP through a friend - I've again asked her to get me the report (from [facility]) and I will manage. Counseled on the importance of using regularly. Cramp in lower limb 4499 87630 R25.2 continue B-complex, continue B12 IM, magnesium citrate and start MVI daily still on vitamin D3 5000 units daily- recommend she have her level tested to be sure not too high and that this does is adequate- was on 2000 iu when level was 36; goal level is 50-70. - CBD oil may help - consider trial of vinegar 1 tbsp in water daily Depressive disorder 0671 4101 F32.89 suspect this is adjustment d/o with depression following suicide of her son 03/04/17 - continue Cymbalta and Zoloft as long as still in depression - pt counseled on importance of seeking psychiatri c help, medication changes, counseling RTC 6 months or sooner PRN CC: Cayetano Nath MD Paresthesia of hand 3090 68674 R20.2 hands fall asleep at night will bring her back for EMG BUE [id number] NIKOLE LANDERS MD NEUROLOGY [facility] [address] [place] [address] 12/29/2017 09:30:32 12/29/2017 14:57:25 Bilateral carpal tunnel syndrome 2242274128 1419800 G56.03 Skin sensa tion disturbance 40168048 R20.9 Neck pain 26752221 M54.2 [id number] NIKOLE LANDERS MD NEUROLOGY [facility] [address] [place] [address] 06/20/2018 08:48:36 06/20/2018 09:50:05 Restless legs 22968514 G25.81 Continue Requip from 1 mg qhs to 1-2 mg qhsI provided literature on CBD oil which she was intereted in.I informed her that I have little familiarit y of use of CBD oil in [place] but would prefer she use a reputable company - provided literature . May also consider Copaiba oil, would recommend the [employer] brand for purity/con sistency. Continue turmeric, B-12 injections , B-complex (no more than 25 mg of B6), vit D3 5000 iu, magnesium and turmeric wait and watch on possible PD (+ drooling and parasomnia /acts out dreams) + FH PD, dystonia and ET mother's side and Lewy Body in her father Obstructiv e sleep apnea syndrome 26839215 G47.33 Again, asked her to resume CPAP; not managed; she has a free mask/CPAP through a friendCoun seled on the importance of using regularly. Cramp in lower limb 1449 80306 R25.2 continue B-complex, continue B12 IM, magnesium citrate and start MVI daily still on vitamin D3 5000 units daily- recommend she have her level tested to be sure not too high and that this does is adequate- was on 2000 iu when level was 36; goal level is 50-70. - CBD oil may help; consider Copaiba oil - consider trial of vinegar 1 tbsp in water daily Depressive disorder 1592 5401 F32.89 suspect this is adjustment d/o with depression following suicide of her son 03/04/17 - continue Cymbalta 60 mg daily; counseled on tapering if she decides to come off- pt counseled on importance of seeking psychiatri c help, medication changes, counseling RTC 6 months or sooner PRN CC: Alda Sandra MD Bilateral carpal tunnel syndrome [id number] 0871948 G56.03 hands fall asleep at night, EMG 12/29/2017 showing mild b/l CTS involving only sensory fibers - avoid flexion at wrists and wears wrist splints at night - low threshold to repeat EMG [id number] LIZBETH ELLIS MD [facility] [address] [place] [address] 03/21/2019 14:34:41 03/21/2019 15:49:26 Urge incontinence of urine 86658487 N39.41 I suggest we first try oxybutynin chloride. She will follow-up in 1-2 weeks and if not significan tly improved we'll consider cystoscopy and perhaps urodynamic s prior to any surgical interventi on Female str ess incontinence 83581344 N39.3 as above [id number] LIZBETH ELLIS MD [facility] [address] [place] [address] 04/04/2019 15:46:19 04/04/2019 16:56:59 Female stress incontinence 29630508 N39.3 as above Urge incon tinence of urine 21535835 N39.41 as above follow-up after urodynamic s [id number] LIZBETH ELLIS MD [facility] [address] [place] [address] 04/12/2019 13:19:04 04/12/2019 13:41:08 Female stress incontinence 96026948 N39.3 she will follow-up for further discussion Urge incon tinence of urine 80778960 N39.41 [id number] LIZBETH ELLIS MD [facility] [address] [place] [address] 04/30/2019 13:10:32 04/30/2019 14:12:11 Female stress incontinence 01228301 N39.3 plan as above follow-up Urge incon tinence of urine 96314825 N39.41 [id number] NIKOLE LANDERS MD NEUROLOGY [facility] CL[facility] [address] [place] [address] 06/20/2019 08:56:01 06/20/2019 10:58:18 Restless legs 54176697 G25.81 No longer on Requip; responding well to Anodyne tx and nitrous oxide cream PRN per [facility] on [facility]. She continues CBD oil. wait and watch on possible PD (+ drooling and parasomnia /acts out dreams) + FH PD, dystonia and ET mother's side and Lewy Body in her father Obstructiv e sleep apnea syndrome 19049502 G47.33 Again, recommende d she use CPAP every night; not managed; she needs a new mask/CPAPC ounseled on the importance of using regularly. Bilateral carpal tunnel syndrome 0407872274 8448201 G56.03 hands fall asleep at night, EMG 12/29/2017 showing mild b/l CTS involving only sensory fibers - avoid flexion at wrists and wears wrist splints at night - low threshold to repeat EMG Neuropathy 099785442 G62 .9 Risk factors include thyroid disease; no known DM or prediabete s, but her BGs have been 100-112. FH of DM in mother. She has a mild LD neuropathy by exam; continue B-complex, D3, magnesium citrate, CoQ10 and MVI daily resume B12 SL 1000 mcg daily continue probiotics - will check her HbA1C [id number] NIKOLE LANDERS MD NEUROLOGY [facility] CL[facility] [address] [place] [address] 06/24/2020 10:46:28 06/24/2020 13:11:18 Restless legs 93288407 G25.81 No longer on Requip; responding well to Anodyne tx and nitrous oxide cream PRN per [facility] on [facility]. She continues CBD oil. wait and watch on possible PD (+ drooling and parasomnia /acts out dreams)waqar id donating blood more than once or twice a year-- she used to donate every 8 weeks or so (O-neg) + FH PD, dystonia and ET mother's side and Lewy Body in her father Obstructiv e sleep apnea syndrome 89038919 G47.33 Again, recommende d she reuse CPAP every night; not managed; she needs a new mask/CPAPC ounseled on the importance of using regularly. Neuropathy 626958482 G62 .9 Risk factors include thyroid disease; no known DM or prediabete s, but her BGs have been 100-112. FH of DM in mother. She has a mild LD neuropathy by exam; continue B-complex, D3, magnesium citrate, CoQ10 and MVI daily continue B12 SL 1000 mcg at least 3x/week unless high dose B12 in the B-complex formula if sx worsen, add alpha lipoic acid limit vitamins with zinc, take only occasional to avoid copper deficiency continue probiotics also counseled extensivel y today on diet, exercise, importance of tx of TRISTON for weight loss Bilateral carpal tunnel syndrome 1417652916 6920604 G56.03 hands fall asleep at night, EMG 12/29/2017 showing mild b/l CTS involving only sensory fibers - avoid flexion at wrists and wears wrist splints at night - low threshold to repeat EMG 40 min appt with greater than 50% in counseling [id number] NIKOLE LANDERS MD NEUROLOGY [facility] [address] [place] [address] 06/23/2021 11:16:08 06/23/2021 13:37:23 Restless legs 80731029 G25.81 No longer on Requip; responding well to Anodyne tx and nitrous oxide cream PRN per [facility] on [facility]. She continues CBD oil. Recent (spring/2020) onset L index finger tremor and intermitte nt mild drooling since about 2019 wait and watch on possible PD (+ drooling and parasomnia /acts out dreams, L index finger tremor)waqar id donating blood more than once or twice a year-- she used to donate every 8 weeks or so (O-neg)- continue CoQ1- add vitamin E 400 iu daily- tight glycemic control, now prediabeti c + FH PD, dystonia and ET mother's side and Lewy Body in her father Bilateral carpal tunnel syndrome [id number] G56.03 hands fall asleep at night, EMG 12/29/2017 showing mild b/l CTS involving only sensory fibers-- these symptoms have improved (sensory sx), but starting to drop things wtih R hand- avoid flexion at wrists and wears wrist splints at night - will repeat EMG RUE32 min13 min evaluation 12 min counseling 7 min documentat ion Extrapyramidal sign [id number] R29.818 Recent (2020) onset L index finger tremor and intermitte nt mild drooling since about 2018. RLS since 2009. Chronic constipati on her entire life.+ FH PD, dystonia and ET mother's side and Lewy Body in her father - counseled on findings and I offered trial of Sinemet, but pt declines; wants to wait- will wait and watch on possible PD (+ drooling and parasomnia /acts out dreams, L index finger tremor), chronic constipati on.- counseled on the importance of regular exercise, very important for movement d/o, especially if PD.- avoid donating blood more than once or twice a year-- she used to donate every 8 weeks or so (O-neg)- continue CoQ10- add vitamin E 400 iu daily- tight glycemic control, now prediabeti c [id number] NIKOLE LANDERS MD NEUROLOGY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
--- OUTSIDE RECORDS SUMMARY | 2025-04-08 13:41 | XMS_ITS | Encounter Summary ---
Author Organization [facility] Address [address] [place] [address] Care Team Providers Care Setter Induction Heating Equipment Name Role Phone Alda Sandra MD Primary Care Provider [phone] Camryn Arzate LPN Unavailable Unavailable Encounter Details Date Type Department Care Team (Late st Contact Info) Description 07/11/2023 Outside Procedure External Location [address] [place] [address] Alda Sandra MD [address] [place] [phone] Social History Tobacco Use Types Packs/Day [...] Description 04/15/2025 2:15 PM EDT Office Visit [facility] Medicine Specialties [address] [place] [address] Shanice Freedman, THREAD MILLING MACHINE SET UP OPERATOR [address] [place] [address] 05/29/2025 9:30 AM EDT Procedure Visit [facility] Interventional Pain Medicine [address] [address] German Espinosa MD [address] [place] [address] 07/18/2025 1:20 PM EDT Office Visit [facility] [place] [facility] [address], [address] [place] [address] Brandi Bermeo MD [address] [place] [address] documented as of this encounter Procedures Procedure Name Priority Date/Time Associated Diagnosis Comments XR LUMBAR SPINE 2 OR 3 VIEWS 07/11/2023 11:20 AM EDT documented in this encounter Results * XR Lumbar Spine 2 or 3 Views (07/11/2023 11:20 AM EDT) Anatomical Region Laterality Modality Spine, L-spine Digital Radiogra phy 07/11/2023 11:2 0 AM EDT Narrative 07/11/2023 12:45 PM EDT [facility] [address] [place] [address] Name: DISHA MONTGOMERY Exam Date: 07/11/2023 : 1960 Age 63 Gender: F Physician: Alda Sandra Facility: [facility] Facility HSV: Outpatient Exam: LUMBAR SPINE 2 TO 3V LUMBAR SPINE, 3 VIEWS HISTORY: Back pain FINDINGS: No fracture is identified. There has been previous L4-L5 fusion with disc spacers at L4-L5 and L5-S1. There is mild anterolisthesis of L3 on L4. There are mild degenerative facet changes. IMPRESSION: Postoperative and degenerative changes without acute process. Films reviewed , interpreted and dictated by Transcribed by Dat De Paz PA-C. Dictated By: CHRISSIE TOPETE Transcribed By: Chrissie Topete Transcribed On: 07/11/2023 12:33 PM Electronically signed by: CHRISSIE TOPETE 07/11/2023 Thank you for referring DISHA MONTGOMERY to [facility]. Legally authenticated by POPE CHRISSIE Urbano 2023-07-11 12:33:37 Procedure Note Provider, [facility] - 07/11/2023 [place] [address] Name: DISHA MONTGOMERY Exam Date: 07/11/2023 : 1960 Age 63 Gender: F Physician: Alda Sandra Facility: [facility] Facility HSV: Outpatient Exam: LUMBAR SPINE 2 TO 3V LUMBAR SPINE, 3 VIEWS HISTORY: Back pain FINDINGS: No fracture is identified. There has been previous L4-L5 fusionwith disc spacers at L4-L5 and L5-S1. There is mild anterolisthesis of L3 onL4. There are mild degenerative facet changes. IMPRESSION: Postoperative and degenerative changes without acuteprocess. Films reviewed , interpreted and dictated by Transcribed by Dat De Paz PA-C. Dictated By: CHRISSIE TOPETE Transcribed By: Chrissie Topete Transcribed On: 07/11/2023 12:33 PM Electronically signed by: CHRISSIE TOPETE 07/11/2023 Thank you for referring DISHA MONTGOMERY to [facility]. Legally authenticated by POPE CHRISSIE Urbano 2023-07-11 12:33:37 us Alda Sandra MD IMG XR PROCEDURES [...] documented as of this encounter Care Teams Setter Induction Heating Equipment Relationship Specialty Start Date End Date Alda Sandra MD [address] [place] [address] PCP - General 03/13/21 Camryn Arzate LPN TCM Nurse 08/01/24 08/31/24 documented as of this encounter
--- OUTSIDE RECORDS SUMMARY | 2025-04-08 13:41 | XMS_ITS | Encounter Summary ---
Author Organization [facility] [place] [facility] Address [address] [place] [address] Care Team Providers Care Course Developer Name Role Phone Alda Sandra MD Primary Care Provider Reason for Visit * Reason Onset Date Comments HCN Clinical Concern/Question 03/26/2025 Encounter Details Date Type Department Care Team (Late st Contact Info) Description 03/26/2025 Telephone [facility] Medicine [address] [place] [address] Alda Sandra MD [address] [place] [address] HCN Clinical Concern/Question Social History [...] How often do you attend chur or sabianist services? More than 4 times per year 08/01/2024 Do you belong to any clubs o r organizations such as faith groups, unions, fraternal or athletic groups, or [...] Recorded Patient Health Questionnaire-2 Score 0 03/18/2025 [facility] Health - Occupational Stress Questionnaire Answer Date [...] any time in the past 12 m [facility], were you homeless or living in a chcf (including now)? No 02/22/2025 CAGE ASSESSMENT Answer [...] drink first t jeni in the morning (EYE-FURNITURE FINISHER APPRENTICE) to steady your nerves or to get [...] encounter Miscellaneous Notes * Telephone Encounter - Jennifer Floyd - 03/26/2025 8:53 AM EDT Pt aware that colonoscopy not due until Jul. * Telephone Encounter - Bobby Scott - 03/26/2025 8:31 AM EDT Clinical Concern/Question Reason for Call: Requesting for a referral for a colonoscopy and requesting insurance, fax#: [phone], please contact for more information if needed. Best contact number: Other: [phone] Optimal time of day to reach caller: ANYTIME Additional comments/information from caller: None Note: Please do not reply to this message. Follow-up communication and further actions as a result of this message need to be communicated with the patient directly, if the patient is not active onMyChart. If the patient is active on MyChart, they will receive notification of the communication/outcome via [employer]. documented in this encounter Plan of Treatment Upcoming Encounters Date Type Department Care Team (Late st Contact Info) Description 04/15/2025 2:15 PM EDT Office Visit [facility] Medicine Specialties [address] [place] [address] Shanice Freedman, OCCUPATIONAL ANALYST [address] [place] [address] 05/29/2025 9:30 AM EDT Procedure Visit [facility] Interventional Pain Medicine [address] [place] [address] German Espinosa MD [address] [place] [address] 07/18/2025 1:20 PM EDT Office Visit [facility] [place] [address] [place] [address] Brandi Bermeo MD [address] [place] [address] documented as of this encounter [...] documented as of this encounter Care Teams Course Developer Relationship Specialty Start Date End Date Alda Sandra MD [address] [place] [phone] PCP - General 03/13/21 documented as of this encounter
--- OUTSIDE RECORDS SUMMARY | 2025-04-08 13:41 | XMS_ITS | Encounter Summary ---
Author Organization [facility] Address [address] [place] [address] Care Team Providers Care Used Equipment Sales Representative Name Role Phone Alda Sandra MD Primary Care Provider [phone] Encounter Details Date Type Department Care Team (Latest Contact Info) Description 03/18/2025 Travel Social History Tobacco Use Types Packs/Day [...] often do you attend chur ch or scientology services? More than 4 times per year 08/01/2024 Do you belong to any clubs o r organizations such as restorationism groups, unions, fraternal or athletic groups, or [...] Recorded Patient Health Questionnaire-2 Score 0 03/18/2025 [facility] - Occupational Stress Questionnaire Answer Date [...] place to sleep or slept in a half-way (including now)? No 08/01/2024 PHQ-9 Answer Date [...] any time in the past 12 m [facility], were you homeless or living in a half-way (including now)? No 02/22/2025 CAGE ASSESSMENT Answer [...] drink first t jeni in the morning (EYE-CUSTOMER SUCCESS ADVOCATE) to steady your nerves or to get rid of a hangover? 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 Question Answer Date of Assessment Author Little interest or pleasure in doing things Not at all 03/18/2025 8:42 AM EDT Med [facility] Feeling down, depressed, or hopeless Not at all 03/18/2025 8:42 AM EDT Med [facility] Patient Health Questionnaire -2 Score 0 03/18/2025 8:42 AM EDT Med [facility] * Question Answer Date of Assessment Author Thoughts that you would be b poly off or hurting yourself in some way Not at all 03/18/2025 8:42 AM EDT Med [facility] * If you checked off any problems on this questionnaire so far, Question Answer Date of Assessment Author How difficult have these problems made it for you to do your work, take care of things at home, or get along with other people? Not difficult at all 03/18/2025 8:42 AM EDT Med Guillaume documented as of this encounter Plan of Treatment Upcoming Encounters Date Type Department Care Team (Late st Contact Info) Description 04/15/2025 2:15 PM EDT Office Visit [facility] Medicine Specialties [address] [place] [address] Shanice Freedman, KEYSHA [address] [place] [phone] 05/29/2025 9:30 AM EDT Procedure Visit [facility] Interventional Pain Medicine [address] [facility] [place] [address] German Espinosa MD [address] [facility] [address] [place] [address] 07/18/2025 1:20 PM EDT Office Visit [facility] [place] [address] [place] [address] Brandi Bermeo MD [address] [place] [address] documented as of this encounter [...] documented as of this encounter Care Teams Used Equipment Sales Representative Relationship Specialty Start Date End Date Alda Sandra MD [address] [place] [address] PCP - General 03/13/21 documented as of this encounter
== END 2025-04-08 23:59 | disposition home or self-care (01) ==
LOC: RAD 13:13
PROVIDERS: PCP Family Medicine; Visit Provider Family Medicine
DX: M81.0 Age-related osteoporosis without current pathological fracture (principal); Z78.0 Asymptomatic menopausal state
CPT/HCPCS: 77080

== ENCOUNTER 2025-08-19 06:50 | Day surgery (SDC) | payer MEDICARE, BC, SELFPAY ==
[2025-08-16 10:32] VITALS: BMI 20.7
--- NOTE | 2025-08-17 13:19 | EXP.HP ---
History of Present Illness *Admission Date: 08/19/25 *History of present illness: Mrs. Montgomery is a 65-year-old female who is here for diagnostic upper endoscopy and screening colonoscopy. The patient had did have a colonoscopy with al in July 2022 and had 2 polyps (tubular adenoma x 1 and small serrated adenoma x 1) which were removed. At that time, she had a slightly elevated CEA level and had high risk genetic testing performed at the [facility]. She has had some mixed irritable bowel syndrome. She had normal colonoscopies in January 2019 and in December 2016 (Dago Castro MD). The patient had previously had an EGD with al in January 2017. This did show mild esophageal dysmotility and mild linear reactive gastropathy. The patient does have a history of dyspepsia and IBS. The examination is deemed medically necessary for EGD and colonoscopy. The patient has been seen, interviewed and examined prior to the procedure by both myself and the anesthesia provider. [facility] Disclaimer: The information contained in this section may have been updated after the patient was seen, as this information can be updated by other users. Medical History History of aneurysm History of asthma Surgical History History of colonoscopy History of esophagogastroduodenoscopy (EGD) History of lumpectomy History of hysterectomy History of back surgery Family History Other Family history of Alzheimer disease Family history of coronary artery disease Family history of diabetes mellitus (DM) Family history of hypertension Social History (Updated 08/19/25 @ 07:42 by Hernando Russell CRNA) Smoking Status: Never smoker alcohol intake: never substance use type: denies use current occupational status: disabled Travel in the last 8 weeks?: None Have you lived/traveled outside [place] in past 30 days?: No Contact w/someone who lives/traveled outside US past 30 days?: No Exposure to someone with infectious disease in past 14 days?: No Do you have a fever (greater than 100.4 F or 38 C)?: No Have you tested positive for COVID-19?: No Exposed to someone with COVID-19 in past 14 days?: No Do you have a sore throat?: No Do you have a cough?: No Do you have any weakness?: No Are you experiencing any nausea/vomitting?: No Do you have any diarrhea?: No Are you experiencing any unusual bleeding?: No Do you have any muscle aches/pain?: No Do you have any abdominal pain?: No Are you experiencing loss of taste or smell?: No Review of Systems Review of Systems Review of systems (narrative): Negative *Cardiovascular Comments: Negative *Gastrointestinal Comments: Negative *Genitourinary Comments: Negative *Musculoskeletal Comments: Negative *Neurologic Comments: Negative Meds Home Medications and Allergies Home Medications ?Medication ?Instructions ?Recorded ?Confirmed ?Type sodium,potassium,mag sulfates 17.5 See Rx Instructions PO .COMPLEX 08/05/25 Rx gram-3.13 gram-1.6 gram oral soln #354 mL (Suprep Bowel Prep Kit) semaglutide (weight loss) 2.4 2.4 mg SQ WEEKLY 08/16/25 08/16/25 History mg/0.75 mL subcutaneous pen injector (Janett) duloxetine 20 mg capsule,delayed 20 mg PO DAILY 08/19/25 08/19/25 History release estradiol 1.25 gram/actuation 1.25 g topical WEEKLY 08/19/25 08/19/25 History (0.06%) transdermal gel pump (EstroGel) levothyroxine 88 mcg tablet 88 mcg PO DAILY 08/19/25 08/19/25 History losartan 100 mg tablet 100 mg PO DAILY 08/19/25 08/19/25 History metoprolol succinate 100 mg 100 mg PO DAILY 08/19/25 08/19/25 History tablet,extended release 24 hr mometasone-formoterol HFA 200 200 puff inhalation BID Asthma 08/19/25 08/19/25 History mcg-5 mcg/actuation aerosol inhaler (Dulera) omeprazole 40 mg capsule,delayed 40 mg PO DAILY 08/19/25 08/19/25 History release New Prescriptions to Start Prescriptions: Allergies Allergy/AdvReac Type Severity Reaction Status Date / Time acetaminophen (From Percocet) Allergy Other Verified 08/19/25 07:20 oxycodone (From Percocet) Allergy Other Verified 08/19/25 07:20 atorvastatin (From Lipitor) AdvReac Cramping Verified 08/19/25 07:20 of the Muscles Exam Data for Last 24 hours I & O for Last 24 hours: Intake & Output 08/14/25 08/15/25 08/16/25 08/17/25 23:59 23:59 23:59 23:59 Weight 125 lb *Routine HEENT Exam Head: Present normocephalic Eye: Present EOMI and PERRL ENT: Present mucous membranes moist *Routine Neck Exam Neck: Present supple *Routine Respiratory Exam Respiratory: Present CTA bilaterally *Routine Cardiovascular Exam Cardiovascular: Present RRR *Routine Abdominal Exam Abdominal: Present soft and normoactive bowel sounds; Absent tenderness *Routine Rectal Exam Rectal:: deferred *Routine Genitalia Exam Genitalia:: deferred *Routine Extremities Exam Extremities: Absent cyanosis, clubbing or edema *Routine Skin Exam Skin: Present warm; Absent rash *Routine Neurological Exam Neurological: Present alert and oriented X3 Assessment and Plan *Assessment and plan (1) Functional dyspepsia: Status: Acute Category: Medical Code(s): K30 - Functional dyspepsia (2) Personal history of adenomatous and serrated colon polyps: Status: Acute Category: Medical Code(s): Z86.0101 - Personal history of adenomatous and serrated colon polyps (3) Irritable bowel syndrome: Status: Acute Category: Medical Code(s): K58.9 - Irritable bowel syndrome, unspecified Plan A/P: 1. Functional dyspepsia for EGD and personal history of adenomatous colon polyps for colonoscopy screening is the preprocedural diagnosis. The patient will be anesthetized/sedated using MAC sedation. The patient has been seen and examined. Cardiac and lung assessment prior to the examination is stable. Proceed with planned EGD and colonoscopy.
--- NOTE | 2025-08-19 06:36 | P.PCN_ITS ---
[facility] Procedure Note Date: 08/19/25 Time: 08:18 Procedure Note:: Upper Endoscopy Procedure Report: Esophagogastroduodenoscopy with cold biopsies Endoscopost: Josh Alejandra II, MD Referring Physician: Alda Sandra MD Date of Procedure: August 19, 2025 Equipment: Olympus GIF-1100 standard upper endoscope Sedation: MAC sedation Indications: Mrs. Montgomery is a 65-year-old female who is here for diagnostic upper endoscopy and screening colonoscopy. The patient had did have a colonoscopy with me in July 2022 and had 2 polyps (tubular adenoma x 1 and small serrated adenoma x 1) which were removed. 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 She had normal colonoscopies in January 2019 and in December 2016 (Dago Castro MD). The patient had previously had an EGD with me in January 2017. This did show mild esophageal dysmotility and mild linear reactive gastropathy. The patient does have GERD and breakthrough symptoms so her omeprazole was increased to 40 mg daily and she is improved. She reports no abdominal pain, bloating, belching, indigestion or dyspepsia. The patient does report some chronic constipation worsened with the Wegovy. The patient does have a remote history of dyspepsia and IBS. The examination is deemed medically necessary for EGD and colonoscopy. Procedure: Prior to the procedure, a history and physical exam was performed, and patient's medications and allergies were reviewed. The risks, benefits and alternatives of the sedation and procedure were discussed with the patient. All questions were answered and informed consent was obtained. The patient was brought to the procedure room. Patient identification and proposed procedure were verified by the physician and the nurse. The patient was placed in a left lateral decubitus position and the scope was passed under direct vision. Throughout the procedure, the patient's blood pressure, pulse, and oxygen saturations were monitored continuously. The upper GI endoscopy was accomplished without difficulty. The patient tolerated the procedure well. Findings: The scope was passed directly into the upper esophagus and advanced to the third portion of the duodenum. The post bulbar duodenum and duodenal bulb were normal with normal mucosa and conniventes. 2 biopsies were taken from the second portion of the duodenum for the disaccharidase assay. The scope was withdrawn through a normal duodenal bulb and pylorus into the stomach. There was bile reflux with linear reactive gastropathy of the antrum. There were 2 slightly larger gastric fundic gland polyps along the lesser curvature and fundus of the stomach which were removed via cold biopsy. Upon retroflexion there was a very small sliding 1 to 2 cm hiatal hernia. The scope was then withdrawn into the esophagus. There was no evidence of reflux esophagitis or Stephens's. There were tertiary contractions and evidence of mild esophageal dysmotility. The remainder of the esophageal mucosa was normal. Impression: 1. Nonerosive GERD with mild esophageal dysmotility and very small sliding 1 to 2 cm hiatal hernia 2. Bile reflux with mild linear reactive gastropathy 3. Gastric fundic gland polyps x 2 Plan: I will follow-up the biopsies and disaccharidase assay. The patient is clinically asymptomatic on omeprazole 40 mg daily. I will proceed with screening/surveillance colonoscopy.
--- NOTE | 2025-08-19 06:36 | HMH.PROCNOTE ---
[facility] Procedure Note Date: 08/19/25 Time: 08:36 Procedure Note:: Colonoscopy Procedure Report: Colonoscopy with monopolar ablation/coagulation of internal hemorrhoids Endoscopist: Josh Alejandra II, MD Referring physician: Alda Sandra MD Date of Procedure: August 19, 2025 Equipment: Olympus [id number] adult colonoscope Sedation: MAC sedation Indication: Mrs. Montgomery is a 65-year-old female who is here for diagnostic upper endoscopy and screening colonoscopy. The patient had did have a colonoscopy with me in July 2022 and had 2 polyps (tubular adenoma x 1 and small serrated adenoma x 1) which were removed. 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 She had normal colonoscopies in January 2019 and in December 2016 (Dago Castro MD). The patient had previously had an EGD with me in January 2017. This did show mild esophageal dysmotility and mild linear reactive gastropathy. The patient does have GERD and breakthrough symptoms so her omeprazole was increased to 40 mg daily and she is improved. She reports no abdominal pain, bloating, belching, indigestion or dyspepsia. The patient does report some chronic constipation worsened with the Wegovy. The patient does have a remote history of dyspepsia and IBS. The examination is deemed medically necessary for EGD and colonoscopy. Procedure: Prior to the procedure, a history and physical exam was performed, and patient's medications and allergies were reviewed. The risks, benefits and alternatives of the sedation and procedure were discussed with the patient. All questions were answered and informed consent was obtained. The patient was brought to the procedure room. Patient identification and proposed procedure were verified by the physician and the nurse. The patient was placed in a left lateral decubitus position and the scope was passed under direct vision. Throughout the procedure, the patient's blood pressure, pulse, and oxygen saturations were monitored continuously. The colonoscopy was accomplished without difficulty. The patient tolerated the procedure well. Findings: On digital rectal examination there was normal rectal tone. There were no external hemorrhoids. The colonoscope was introduced through the anal canal to the rectum and advanced to the cecum. The ileocecal valve and appendiceal orifice were identified. The scope was advanced a short distance into the ileum which appeared grossly normal. The scope was then withdrawn into the colon. The cecum, ascending, transverse, descending, sigmoid and rectum were grossly normal. There were no mucosal abnormalities identified. Upon retroflexion within the rectum there were grade 2 internal hemorrhoids. 3 columns of hemorrhoids were ablated/coagulated using monopolar ablation. The preparation was good throughout with [place] Preparation Score of 7?8 out of 9. The cecal time was 12 minutes. Impression: 1. Normal colonoscopy with intubation of the terminal ileum 2. 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 I would encourage a fiber bowel regimen (combined MiraLAX plus Citrucel) or Linzess.
[2025-08-19 07:11] VITALS: BP 190/96; PULSE 76; RESP 16; TEMP 36.1; O2SAT 97; BMI 37.4
[2025-08-19] MEDS: LACTATED RINGERS 1000ML 1,000 ML 50 ML IV (07:22)
--- NOTE | 2025-08-19 07:40 | EXP.ANES.CKL ---
[facility] Disclaimer: The information contained in this section may have been updated after the patient was seen, as this information can be updated by other users. Medical History History of aneurysm History of asthma Surgical History History of colonoscopy History of esophagogastroduodenoscopy (EGD) History of lumpectomy History of hysterectomy History of back surgery Family History Other Family history of Alzheimer disease Family history of coronary artery disease Family history of diabetes mellitus (DM) Family history of hypertension Social History Smoking Status: Never smoker alcohol intake: never substance use type: denies use current occupational status: disabled Travel in the last 8 weeks?: None [facility] Anesthesia Checklist Patient Identification Patient Identification: Arm Band Structural Data Admitted From: Home Planned Operative Procedure/s: EGD/Colonoscopy Consent for Planned Operative Procedure(s) Verified: Yes Verified Documents: Surgical Consent and History and Physical NPO Status Verified Time NPO: 02:30 (finished prep) Additional verifications Anesthesia Reactions: No Airway Assessment Mallampati Score:: Class II C-Spine Mobility Assessed: Yes TMJ Mobility Assessed: Yes Dentition: Good Dentition Neurological Assessment Level of Consciousness: Awake, Alert and Appropriate Anesthesia Plan Anesthesia Risk discussed: Yes Anesthesia Plan: Verified ASA Class: II Anesthesia Type: MAC
[2025-08-19 08:38] VITALS: BP 101/59; PULSE 72; RESP 18; TEMP 36.1; O2SAT 96
[2025-08-19 08:45] VITALS: BP 105/65; PULSE 74; O2SAT 97
[2025-08-19 08:55] VITALS: BP 129/83; PULSE 79; O2SAT 99
[2025-08-19 09:05] VITALS: BP 123/85; PULSE 69; O2SAT 98
[2025-08-22 17:53] LABS: Interpretation Notes (.); Lactase 26.92 (>/= 14.0); Maltase 266.44 (>/= 110.0); Palatinase 20.12 (>/= 8.5); Reference Notes (.); Sucrase 84.46 (>/= 25.0)
== END 2025-08-19 09:05 | disposition home or self-care (01) ==
PROVIDERS: PCP Family Medicine; Visit Provider Internal Medicine Gastroenterology
PROC: 0DJ08ZZ Inspection of Upper Intestinal Tract, Via Natural or Artificial Opening Endoscopic (ICD-10-PCS; CPT 45378; principal; 2025-08-19 08:30)
DX: Z12.11 Encounter for screening for malignant neoplasm of colon (principal); K30 Functional dyspepsia; Z86.0101 Personal history of adenomatous and serrated colon polyps; K58.9 Irritable bowel syndrome, unspecified; D41.4 Neoplasm of uncertain behavior of bladder; K21.9 Gastro-esophageal reflux disease without esophagitis; K64.1 Second degree hemorrhoids; K22.4 Dyskinesia of esophagus; K44.9 Diaphragmatic hernia without obstruction or gangrene; K31.89 Other diseases of stomach and duodenum
CPT/HCPCS: 43239; 46930; 82657; 88305; J2003; J2704; J7120